=== PATIENT | female | born 1995 | race Caucasian/White ===

== ENCOUNTER 2024-11-02 16:16 | Emergency (ER) | payer SELFPAY ==
[2024-11-02 17:06] VITALS: BP 144/101; PULSE 110; TEMP 36.8; O2SAT 100; BMI 22.0
--- NOTE | 2024-11-02 17:17 | PC.NURSE ---
Patient report lower abdominal pain, patient reports approx. 9 weeks , denies any vaginal bleeding or discharge.
--- NOTE | 2024-11-02 17:23 | US_ITS ---
[address] [address] Patient Name: LAUREN MARTINEZ MRN: [id number] date: 1995 Sex: F Assigned Patient Location: ER Current Patient Location: ER Accession/Order Number: [id number] Exam Date: 11/02/2024 17:53 Report Date: 11/02/2024 18:58 At the request of: SOPHIA JORGE Procedure: US OB transvaginal EXAMINATION: US OB transvaginal HISTORY: rlq pain TECHNIQUE: Grayscale and color Doppler sonographic evaluation of the uterus and adnexa was performed utilizing a transvaginal approach only. COMPARISON: None. FINDINGS: Uterus: Size: Normal Orientation:Anteverted Intrauterine Gestational Sac: Present Yolk Sac: Present Pole: Present. [place]-rump length of 2.3 cm, 9 weeks 0 days with PAPITO 06/07/2025 Cardiac Activity: 173 bpm Subchorionic hemorrhage: none Cervix: Closed Right adnexa:Right ovary measures 4.8 x 2.5 x 4.3 cm. There is a 3.3 cm anechoic simple appearing cyst of the right ovary. Left adnexa:Left ovary is unremarkable and measures 1.3 x 1.7 x 1.7 cm. Free fluid:Small amount of free fluid in the right adnexum and cul-de-sac. US/US OB transvaginal IMPRESSION: 1. Single, living, intrauterine with estimated age of 9 weeks 0 days based on crown-rump length. No acute complication. 2. Simple right ovarian cyst with a small amount of adjacent fluid may suggest ruptured or leaking right ovarian cyst. Electronically authenticated by: ROVERTO ENGLAND Date: 11/02/2024 18:58
[2024-11-02] MEDS: 0.9 % SODIUM CHLORIDE 1,000 ML 1000 ML IV (17:41)
[2024-11-02] MEDS: ONDANSETRON PF 4 MG/2 ML VIAL IV (17:43)
[2024-11-02 17:48] LABS: Basophils Percent Auto 0.4 % (0.2-2.0); Eosinophils Absolute Auto 0.1 10^3/uL (0.0-0.7); Eosinophils Percent Auto 0.6 % (0.9-7.0); Hematocrit 38.5 % (36.0-48.0); Hemoglobin 13.1 g/dL (12.0-16.0); Immature Granulocytes Abs Auto 0.04 10^3/uL (0.00-0.03); Immature Granulocytes Pct Auto 0.4 % (0.0-0.5); Lymphocytes Absolute Auto 2.7 10^3/uL (1.2-3.8); Lymphocytes Percent Auto 26.9 % (20.5-60.0); Mean Corpuscular Volume 85.4 fL (81.0-99.0); Mean Platelet Volume 10.4 fL (9.5-13.5); Monocytes Absolute Auto 0.7 10^3/uL (0.3-0.8); Monocytes Percent Auto 6.6 % (1.7-12.0); Neutrophils Absolute Auto 6.4 10^3/uL (1.4-6.5); Neutrophils Percent Auto 65.1 % (43.0-75.0); Platelet Count 276 10^3/uL (150-450); Red Blood Count 4.51 10^6/uL (4.20-5.40); Red Cell Distribution Width 12.9 % (11.0-15.0); White Blood Count 9.9 10^3/uL (4.0-11.0)
[2024-11-02 18:10] LABS: Alanine Aminotransferase 10 U/L (14-59); Albumin Globulin Ratio 0.9; Albumin Level 3.4 g/dL (3.4-5.0); Alkaline Phosphatase 48 U/L (46-116); Anion Gap 12.9; Aspartate Amino Transferase 11 U/L (15-37); BUN Creatinine Ratio 13.9; Bilirubin Total 0.1 mg/dL (0.2-1.0); Calcium 8.7 mg/dL (8.5-10.1); Chloride 101 mmol/L (98-107); Estimated GFR (African America >60 (>=60 mL/min/1.73m^2); Estimated GFR (Non-African Ame >60 (>=60 mL/min/1.73m^2); Globulin 3.6 g/dL; Glucose 94 mg/dL (74-106); Potassium 3.9 mmol/L (3.5-5.1); Sodium 136 mmol/L (136-145)
[2024-11-02 18:32] LABS: HCG Quantitative 155071 mIU/mL
[2024-11-02] MEDS: MORPHINE SULFATE 2 MG/ML SYRINGE IV (18:46)
[2024-11-02 18:47] VITALS: BP 104/68; PULSE 86; O2SAT 99
[2024-11-02 18:59] LABS: Bilirubin Urine NEGATIVE (NEGATIVE); Blood Urine NEGATIVE (NEGATIVE); Clarity Urine CLEAR (CLEAR); Color Urine YELLOW (YELLOW); Glucose Urine UA NEGATIVE (NEGATIVE); Ketones Urine NEGATIVE (NEGATIVE); Leukocyte Esterase Urine NEGATIVE (NEGATIVE); Nitrite Urine NEGATIVE (NEGATIVE); Protein Urine NEGATIVE (NEG/TRACE); Specific Gravity Urine 1.025 (1.005-1.025); Urobilinogen Urine 0.2 EU/dL (0.2-1.0)
--- NOTE | 2024-11-02 19:22 | ED.GENADUL1 ---
HPI HPI - General Adult General Chief complaint: Abdominal Pain Stated complaint: 9 WEEKS , ABDOMINAL PAIN Time Seen by Provider: 11/02/24 17:12 Source: patient Mode of arrival: walk-in History of Present Illness HPI narrative: 29-year-old female 2 para 0 presents here with chief complaint right lower quadrant abdominal pain. She complains abdominal pain cramping denies any vaginal bleeding or discharge. She states she has a history of 1 miscarriage at approximately 9 weeks along. She states she is approximately 9 weeks at this time. She sees an TEA ROOM MANAGER at [facility] she states she had a complicated first with a miscarriage. Patient denies known history of blood type. Abdominal pain and cramping in the right lower quadrant which began last evening. She is bending over and pain. She denies any vomiting. Related Data Previous Rx's ?Medication ?Instructions ?Recorded ondansetron HCl 4 mg tablet 4 mg PO Q8H PRN nausea and 11/02/24 vomiting 4 days #20 tabs Allergies Allergy/AdvReac Type Severity Reaction Status Date / Time No Known Drug Allergies Allergy Verified 11/02/24 17:06 Opioid HPI Opioid Management Most Recent Opioid Data: No Data to Display Review of Systems ROS Narrative All Systems are negative except as noted/marked.All systems reviewed and otherwise negative PFSH PFSH Social History Little interest or pleasure in doing things: nearly every day Feeling down, depressed, or hopeless: nearly every day Exam Narrative Exam Narrative: Nurses note and vital signs reviewed and patient is not hypoxic. General: The patient appears well and in no apparent distress. Patient is resting comfortably on cart. Skin: Warm, dry, no pallor noted. There is no rash noted. Head: Normocephalic, atraumatic Eye: Normal conjunctiva, no drainage, EOMI. PERRL Ears, Nose, Mouth, and Throat: oral mucosa is moist. Nares patent. Mouth without vesicles. Ear canals patent. Tm's without Erythema Cardiovascular: Regular Rate and Rhythm Respiratory: Patient is in no distress, no accessory muscle use, lungs are clear to auscultation, no wheezing, rales or rhonchi Back: non-tender, no CVA tenderness bilaterally to percussion. GI: right lower quadrant pain, Normal bowel sounds, tenderness to palpation, no masses appreciated. No rebound, guarding, or rigidity noted. Musculoskeletal: The patient has no evidence of calf tenderness, no pitting edema, symmetrical pulses noted bilaterally Neurological: A&O x4, normal speech Psychiatric: Cooperative Constitutional Vital Signs, click to edit/add: Last Vital Signs Temp 98.2 F 11/02/24 17:06 Pulse 86 11/02/24 18:47 Resp 18 11/02/24 18:47 BP 104/68 11/02/24 18:47 Pulse Ox 99 11/02/24 18:47 O2 Del Method Room Air 11/02/24 18:47 Course Vital Signs Vital signs: Vital Signs Temperature 98.2 F 11/02/24 17:06 Pulse Rate 110 H 11/02/24 17:06 Respiratory Rate 18 11/02/24 17:06 Blood Pressure 144/101 H 11/02/24 17:06 Pulse Oximetry 100 11/02/24 17:06 Oxygen Delivery Method Room Air 11/02/24 17:06 Temperature 98.2 F 11/02/24 17:06 Pulse Rate 86 11/02/24 18:47 Respiratory Rate 18 11/02/24 18:47 Blood Pressure 104/68 11/02/24 18:47 Pulse Oximetry 99 11/02/24 18:47 Oxygen Delivery Method Room Air 11/02/24 18:47 Medical Decision Making MDM Narrative Medical decision making narrative: Complaint right lower quadrant abdominal pain. Ultrasound was performed to rule out ectopic . CBC BMP reviewed and unremarkable urinalysis within normal limits.. Ultrasound showed a single live intrauterine at 9 weeks 0 days with a heart rate. Patient does have a ovarian cyst. I attribute her pain to that. Patient was medicated here with 2 mg morphine which helped subside her pain. She will be discharged home with small prescription of [place]. Encouraged to follow-up tomorrow with her primary care TEA ROOM MANAGER. She agrees with plan of care. Differential Diagnosis Differential Diagnosis: Abdominal pain, ectopic , pain in , ovarian cyst Medical Records Medical records reviewed: Yes I reviewed the patient's medical records Lab Data Lab results reviewed: Yes I reviewed the patient's lab results Labs: Lab Results 11/02/24 11/02/24 Range/Units 17:30 17:40 WBC 9.9 (4.0-11.0) 10^3/uL RBC 4.51 (4.20-5.40) 10^6/uL Hgb 13.1 (12.0-16.0) g/dL Hct 38.5 (36.0-48.0) % MCV 85.4 (81.0-99.0) fL MCH 29.0 (26.7-34.0) pg MCHC 34.0 (29.9-35.2) g/dL RDW 12.9 (11.0-15.0) % Plt Count 276 (150-450) 10^3/uL MPV 10.4 (9.5-13.5) fL Neut % (Auto) 65.1 (43.0-75.0) % Lymph % (Auto) 26.9 (20.5-60.0) % Potter % (Auto) 6.6 (1.7-12.0) % Eos % (Auto) 0.6 L (0.9-7.0) % Baso % (Auto) 0.4 (0.2-2.0) % Neut # (Auto) 6.4 (1.4-6.5) 10^3/uL Lymph # (Auto) 2.7 (1.2-3.8) 10^3/uL Potter # (Auto) 0.7 (0.3-0.8) 10^3/uL Eos # (Auto) 0.1 (0.0-0.7) 10^3/uL Baso # (Auto) 0.0 (0.0-0.1) 10^3/uL Abs Immat Gran (auto) 0.04 H (0.00-0.03) 10^3/uL Imm/Tot Granulo (auto) 0.4 (0.0-0.5) % Sodium 136 (136-145) mmol/L Potassium 3.9 (3.5-5.1) mmol/L Chloride 101 (98-107) mmol/L Carbon Dioxide 26.0 (21.0-32.0) mmol/L Anion Gap 12.9 BUN 10.0 (7.0-18.0) mg/dL Creatinine 0.72 (0.55-1.02) mg/dL Est GFR ( Amer) >60 (>=60 mL/min/1.73m^2) Est GFR (Non-Af Amer) >60 (>=60 mL/min/1.73m^2) BUN/Creatinine Ratio 13.9 Glucose 94 (74-106) mg/dL Calcium 8.7 (8.5-10.1) mg/dL Total Bilirubin 0.1 L (0.2-1.0) mg/dL AST 11 L (15-37) U/L ALT 10 L (14-59) U/L Alkaline Phosphatase 48 (46-116) U/L Total Protein 7.0 (6.4-8.2) g/dL Albumin 3.4 (3.4-5.0) g/dL Globulin 3.6 g/dL Albumin/Globulin Ratio 0.9 Lipase 40.0 (16.0-77.0) U/L HCG, Quant 802443 mIU/mL Urine Color Yellow (YELLOW) Urine Clarity Clear (CLEAR) Urine pH 6.0 (5.0-9.0) Ur Specific [place] 1.025 (1.005-1.025) Urine Protein Negative (NEG/TRACE) mg/dL Urine Glucose (UA) Negative (NEGATIVE) mg/dL Urine Ketones Negative (NEGATIVE) mg/dL Urine Occult Blood Negative (NEGATIVE) Urine Nitrite Negative (NEGATIVE) Urine Bilirubin Negative (NEGATIVE) Urine Urobilinogen 0.2 (0.2-1.0) EU/dL Ur Leukocyte Esterase Negative (NEGATIVE) Blood Type A Positive Imaging Data US - abdomen: Radiologist's impression: ITS Impressions Transvaginal US 11/02/24 17:23 IMPRESSION: 1. Single, living, intrauterine with estimated age of 9 weeks 0 days based on crown-rump length. No acute complication. 2. Simple right ovarian cyst with a small amount of adjacent fluid may suggest ruptured or leaking right ovarian cyst. Electronically authenticated by: ROVERTO ENGLAND Date: 11/02/2024 18:58 Discharge Plan Discharge Chief Complaint: Abdominal Pain Clinical Impression: Ovarian cyst Patient Disposition: Home, Self-Care Time of Disposition Decision: 19:16 Condition: Good Prescriptions / Home Meds: New ondansetron HCl 4 mg tablet 4 mg PO Q8H PRN (Reason: nausea and vomiting) 4 Days Qty: 20 0RF Print Language: Bhutanese Instructions: Ovarian Cyst (ED) Additional Instructions: follow up with your obgyn tomorrow and schedule a follow up appointment Referrals: Physician,Non-Staff, MD [Primary Care Provider] - 1 week
[2024-11-02 19:26] LABS: Bacteria Urine SMALL #/HPF (NONE SEEN); Cast Seen? NONE SEEN #/LPF (NONE SEEN); Crystals Seen? None Seen #/HPF (None Seen); Mucus Urine NONE SEEN (NONE SEEN); RBC Urine 0-2 #/HPF (0-2); Squamous Epithelial Cell Urine MODERATE #/LPF (NONE/RARE); Urine Culture Indicated YES; WBC Urine 0-2 #/HPF (NONE SEEN)
== END 2024-11-02 19:39 | disposition home or self-care (01) ==
PROVIDERS: Physician Assistant; Emergency Provider Emergency Medicine
DX: O34.81 Maternal care for other abnormalities of pelvic organs, first trimester (principal); N83.291 Other ovarian cyst, right side; Z3A.09 9 weeks gestation of pregnancy
CPT/HCPCS: 36415; 76817; 80053; 81001; 83690; 84702; 85025; 86900; 86901; 87086; 87150; 87186; 96374; 96375; 99285; J2270; J2405

== ENCOUNTER 2025-04-08 18:25 | Observation (INO) | payer OTHER, SELFPAY ==
[2025-04-08 18:41] VITALS: BP 103/71; PULSE 100
--- NOTE | 2025-04-08 18:56 | US_ITS ---
The [place] [id number] Patient Name: LAUREN MARTINEZ MRN: [id number] date: 1995 Sex: F Assigned Patient Location: [facility] Current Patient Location: Accession/Order Number: [id number] Exam Date: 04/09/2025 08:07 Report Date: 04/09/2025 08:09 At the request of: HANS MORA DO Procedure: US OB BPP w non-stress BIOPHYSICAL PROFILE: CLINICAL INFORMATION: Large for gestational age. Recent fall. COMPARISON: None There is a single live intrauterine gestation in cephalic presentation. The reported gestational age is 31 weeks 3 days. The heart rate measures 141 beats per minute. FINDINGS: TONE: 1 or more episodes of activity extension and flexion of extremity or opening and closing of the hand [Y] 2/2 GROSS BODY MOVEMENTS: 3 or more discrete body or limb movements [Y] 2/2 BREATHING MOVEMENTS: 1 or more episodes of breathing lasting at least 30 seconds [Y] 2/2 KENZIE: A single deepest vertical pocket of amniotic fluid greater than 2 cm [Y] 2/2 KENZIE: 15.2 cm. This is normal. Total score: 05/15 US/US OB BPP w non-stress IMPRESSION: NORMAL BIOPHYSICAL PROFILE. Impression dictated by: Atiya Valdes M.D. 04/09/2025 8:09 AM Dictation Location: [place] [address] Electronically authenticated by: [id number] Y Date: 04/09/2025 08:09
--- NOTE | 2025-04-08 18:56 | US_ITS ---
[place] [id number] Patient Name: LAUREN MARTINEZ MRN: [id number] date: 1995 Sex: F Assigned Patient Location: [facility] Current Patient Location: Accession/Order Number: [id number] Exam Date: 04/08/2025 22:29 Report Date: 04/08/2025 22:32 At the request of: HANS MORA DO Procedure: US OB placenta Limited ultrasound HISTORY: Fell at 11:00 AM. Assessment of the placenta. Fetus in cephalic presentation with longitudinal lie. The amniotic fluid index is 15.2 cm within normal limits. Largest pocket measures up to 6.8 cm. heart rate 141 bpm. Placenta anterior location. No previa. No abruption. Single live active intrauterine gestation. US/US OB placenta IMPRESSION: Normal placenta. Single live intrauterine gestation 31 weeks 3 days. Adequate amniotic fluid. Impression dictated by: Beltran Stephenson M.D. 04/08/2025 10:32 PM Dictation Location: [email or web address] Electronically authenticated by: [id number] Y Date: 04/08/2025 22:32
== END 2025-04-08 20:15 | disposition home or self-care (01) ==
PROVIDERS: Admitting Provider Obstetrics & Gynecology; PCP Obstetrics & Gynecology; Visit Provider Obstetrics & Gynecology
DX: O26.893 Other specified pregnancy related conditions, third trimester (principal); Z3A.31 31 weeks gestation of pregnancy; Z91.81 History of falling
CPT/HCPCS: 76815; 76818; G0378; G0379

== ENCOUNTER 2025-04-22 06:51 | Outpatient (OUT) | payer OTHER, SELFPAY ==
--- OUTSIDE RECORDS SUMMARY | 2013-03-20 04:32 | XMS_ITS | Continuity of Care Document ---
Author Organization [facility] Address [address] [place] [address] [place] [address] Phone Care Team Providers Care Conference And Event Organiser Name Role Phone Unavailable Unavailable Unavailable Allergies, Adverse Reactions, Alerts Substance Reaction Status Criticality No Known allergies Procedures Procedure Date OFFICE/OUTPATIENT VISIT, [facility] Advance Directives Directive Yes / No Effective Date File Name Resuscitation Not Answered N/A N/A Life Support Not Answered N/A N/A Intubation Not Answered N/A N/A Antibiotics Not Answered N/A N/A IV Fluid Support Not Answered N/A N/A Tube Feed Not Answered N/A N/A Other Directive N/A N/A WARNING:The information contained in this section is historical and is provided for information only and does not constitute a legal document or any assurance that the information is still accurate. Please verify the information with the moore of the legal document before using it for clinical purposes. 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 [address] [place] [address] B, [place], [id number], [place]. tel:[phone] Referring Provider: Physician Corporate, [address] [place] [address], [place], [address] . tel:[phone] Family History Family Member Type Diagnosis Age At Onset grandparents Problem (finding) Diabetes mellitus Payers Payer name Insurance type Covered constitution party ID Authoriza tion(s) No Information Social History Type Description Quantity Date Captured Comments Sex Female Smoking Status No Information Chief Complaint And Reason For Visit No Information Reason For Referral Reason For Referral No Information History Of Present Illness Encounter Date Complaint History Of Prese nt Illness No Information Functional Status Date Functional Assessmen t No Information Instructions Date Instruction Additional Infor mation No Information Assessments Type Assessment Date No Information Patient Care Teams Name Effective Dates (start - stop) Status Members No Information
--- OUTSIDE RECORDS SUMMARY | 2023-10-26 06:00 | XMS_ITS ---
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 * HPI: G eneral: Patient presents to the office today to establish care and get a 2nd opinion. * Medical History: Objective: * Vitals: Assessment: Plan: * Treatment: * * Electronic signature of HALLEY QUAN DO on 04/22/2025 at 06:54 AM EDT Sign off status: Pending Visit Status: C ANC (Cancelled) * Provider: Daxa QUAN DO Date: 0 10/26/2023 Generated for Laura lynn/Markell/Joann on: 0 04/22/2025 06:54 AM EDT
--- OUTSIDE RECORDS SUMMARY | 2025-04-16 15:30 | XMS_ITS | Encounter Summary ---
Author Organization [facility] Address [address] [place] [address] Care Team Providers Care Medical Director/Head Team Physician Name Role Phone Dallas Hopkins MD Primary Care Provider [phone] Deonna Melgoza APRN.AUDIT PARTNER Unavailable Source Comments In the event this information is protected by the Federal Confidentiality of Alcohol and Drug AbusePatient Records regulations: The Federal rules restrict any use of the information to criminally investigate or prosecute any alcohol or drug abuse patient.[facility] Reason for Referral * Diagnostic Procedure Only (Routine) - New Request Specialty Diagnoses / Procedures Referred By Dani t Referred To Contact [facility] Diagnoses Poor growth affecting management of mother in second trimester, single or unspecified fetus (HCC) Procedures OBSTETRIC ULTRASOUND WHI US PREG UTERUS AFTER 1ST TRIMEST GESTATION Rizwana Arboleda DO [address] [place] [address] Phone: tel: fax: [address] [address] Referral ID Status Reason Start Date Expiration Date Visits Requested Visits Authorized [id number] New Request Auto-Generat ed Referral 04/16/2025 04/16/2026 21 1 Reason for Visit * Reason Comments US * Diagnostic Procedure Only (Routine) - Closed Specialty Diagnoses / Procedures Referred By Contac t Referred To Contact [facility] Diagnoses 23 weeks gestation of (HCC) Ulcerative colitis without complications, unspecified location (HCC) Procedures OBSTETRIC ULTRASOUND WHI US PREG UTERUS AFTER 1ST TRIMEST GESTATION Milagro Ta APRN.CNM [address] [facility] [address] Phone: tel: fax: [facility] [address] [place] [address] Referral ID Status Reason Start Date Expiration Date V isits Requested Visits Authorized [id number] Closed Auto-Generate d Referral 02/13/2025 02/13/2026 5 1 Encounter Details Date Type Department Care Team (Latest Contact Info) Description 04/16/2025 3:30 PM EDT Routine Office Visit Maternal Medicine [address] [place] [phone] Supervision of high risk in third trimester (HCC) (Primary Dx); Ulcerative colitis without complications, unspecified location (HCC); Obesity affecting , antepartum, third trimester (HCC) Social History Tobacco Use Types Packs/Day Years Used Date Smoking Tobacco: Never Smokeless Tobacco: Never Alcohol Use Standard Drinks/Week Comments Yes 0 (1 standard drink = 0.6 oz pur e alcohol) rare PHQ-2 Answer Date Recorded PHQ-2 score 0 05/23/2024 Area Deprivation Index Answer Date Elia rded National Score (1-100), lowe r number is lower risk 73 01/09/2025 State Score (1-10), lower number is lower risk 6 01/09/2025 Data from: https://www.neighborhoodatlas.medicine.[facility].edu/ . Last address used for calculation [address] 01/09/2025 Estimated Date of Delivery Comme nts Yes 06/07/2025 Based on Ultraso und Sex and Gender Information Value Date Recorded Sex Assigned at Not on file Legal Sex Female 11:10 AM EST Gender Identity Not on file Sexual Orientation Not on file documented as of this encounter Plan of Treatment Upcoming Encounters Date Type Department Care Team (Late st Contact Info) Description 04/22/2025 11:20 AM EDT [facility] Hematology/Oncolog y [address] [place] [address] Clinic, Virtual Anemia [address] [place] [address] RE-SCHEDULED 04/23/2025 5:20 PM EDT Routine Office Visit OB/Gynecology [facility] [address] [place] [address] Zhao Biggs MD [address] [phone] 32 weeks ob/ rescheduled from 04-16-25 05/01/2025 3:50 PM EDT Routine Office Visit Obstetrics/Gynecol ogy [address] [place] [address] [place] [address] [place] [address] 3 week 05/08/2025 11:00 AM EDT Routine Office Visit Maternal Medicine [address] [place] [address] growth pwer CS 05/08/2025 2:45 PM EDT Routine Office Visit OB/Gynecology [address] [place] [address] Milagro Ta APRN.[facility] [address] [facility] [address] 1 week 05/15/2025 2:40 PM EDT Routine Office Visit Obstetrics/Gynecol ogy [address] [place] [address] [place] [address] [place] [address] 1 week OB 05/15/2025 3:30 PM EDT Routine Office Visit Maternal Medicine [address] [place] [address] GROWTH 05/22/2025 1:45 PM EDT Routine Office Visit OB/Gynecology [address] [place] [address] Milagro Ta, FIELD RESEARCH ASSISTANT.CNM [address] [facility] [address] 1 week OB 05/28/2025 3:00 PM EDT Routine Office Visit OB/Gynecology [address] [place] [address] Isabel Kelsey, FIELD RESEARCH ASSISTANT.AUDIT PARTNER [address] [facility] [place] [address] 1 week OB 06/05/2025 1:45 PM EDT Routine Office Visit OB/Gynecology [address] [place] [address] Milagro Ta, FIELD RESEARCH ASSISTANT.CNM [address] [facility] [address] 1 week OB Pending Results Name Type Priority Associated Diagnoses Date /Time BILE ACIDS FRACT BLD Lab Routine 04/07 4:49 PM EDT Scheduled Orders Name Type Priority Associated Diagnoses Orde r Schedule OBSTETRIC ULTRASOUND WHI Anc Imaging Routine Every 3 weeks fo r 21 Occurrences starting 04/16/2025 until 05/26/2025 BILE ACIDS FRACT BLD Lab Routine Expe cted: 04/23/2025 (Approximate), Expires: 10/17/2025 documented as of this encounter Procedures Procedure Name Priority Date/Time Associated Diagnosis Comments OBSTETRIC ULTRASOUND WHI Routine 04/16/2025 4:08 PM EDT Ulcerative colitis without complications, unspecified location (HCC) documented in this encounter Results * (ABNORMAL) COMPLETE BLOOD COUNT AND DIFFERENTIAL (04/16/2025 4:49 PM EDT) WBC 12.70(H) 3.70 - 11.00 k/uL 04/16/2025 5:04 PM EDT [facility] RBC 4.08 3.90 - 5.20 m/uL 04/16/2025 5:04 PM EDT [facility] Hemoglobin 10.1(L) 11.5 - 15.5 g/dL 04/[facility]25 [facility] Hematocrit 32.3(L) 36.0 - 46.0 % 04/16/2025 5:04 PM [facility] MCV 79.2(L) 80.0 - 100.0 fL 04/16/2025 5:04 PM [facility] MCH 24.8(L) 26.0 - 34.0 pg 04/16/2025 5:04 PM [facility] MCHC 31.3 30.5 - 36.0 g/dL 04/16/2025 5:04 PM [facility] RDW-CV 14.1 11.5 - 15.0 % 04/16/2025 5:04 PM [facility] Platelet Count 294 150 - 400 k/uL 04/16/2025 5:04 PM [facility] MPV 10.1 9.0 - 12.7 fL 04/16/2025 5:04 PM [facility] Neutrophils % 67.4 % 04/16/2025 5:04 PM EDT [facility] Abs Neut 8.56(H) 1.45 - 7.50 k/uL 04/16/2025 5:04 PM EDT [facility] Lymphocytes % 23.5 % 04/16/2025 5:04 PM EDT [facility] Abs Lymph 2.98 1.00 - 4.00 k/uL 04/16[facility]2025 5:[facility] PM [facility] Monocytes % 7.1 % 04/16/2025 5:04 PM EDT [facility] Abs Crook 0.90(H) <0.87 k/uL 04/16/2025 5:04 PM EDT [facility] Eosinophils % 0.5 % 04/16/2025 5:04 PM EDT [facility] Abs Eosin 0.06 <0.46 k/uL 04/16/2025 5:04 PM EDT [facility] Basophils % 0.2 % 04/16/2025 5:04 PM EDT [facility] Abs Baso 0.03 <0.11 k/uL 04/16/2025 5:04 PM EDT [facility] Immature Granulocytes % 1.3 % 04/16/2025 5:04 PM EDT [facility] Abs Immature Gran 0.17(H) <0.10 k/uL 04/16/2025 5:04 PM EDT [facility] NRBC 0.0 /100 WBC 04/16/2025 5:04 PM EDT [facility] Absolute nRBC <0.01 <0.01 k/uL 04/16/2025 5:04 PM EDT [facility] Diff Type Auto 04/16/2025 5:04 PM EDT [facility] Blood BLOOD SPECIMEN / Unknown Venipuncture / Unknown 04/16/2025 4:49 PM EDT 04/16/2025 4:49 PM EDT us Rizwana Arboleda DO LABORATORY Final Res ult [facility] [address] [place] [address], * (ABNORMAL) COMPREHENSIVE METABOLIC PANEL (04/16/2025 4:49 PM EDT) Pathologist [facility] Protein, Total 6.8 6.3 - 8.0 g/dL 04/16/2025 5:28 PM EDT [facility] Albumin 3.8(L) 3.9 - 4.9 g/dL 04/16/2025 5:28 PM EDT [facility] Calcium, Total 9.0 8.5 - 10.2 mg/dL 04/16/2025 5:28 PM [facility] Bilirubin, Total 0.2 0.2 - 1.3 mg/dL 04/16/2025 5:28 PM EDT [facility] Alkaline Phosphatase 97 34 - 123 U/L 04/16/2025 5:28 [facility] AST 12(L) 13 - 35 U/L 04/16/2025 5:28 PM EDT [facility] ALT 9 7 - 38 U/L 04/16/2025 5:28 PM EDT [facility] Glucose 85 74 - 99 mg/dL 04/16/2025 5:28 PM EDT [facility] Comment: The [place] Diabetes Association (ADA) provides guidance for cutoff values for fasting glucose and random glucose. The ADA defines fasting as no caloric intake for at least 8 hours. Fasting plasma glucose results between 100 to 125 mg/dL indicate increased risk for diabetes (prediabetes). Fasting plasma glucose results greater than or equal to 126 mg/dL meet the criteria for diagnosis of diabetes. In the absence of unequivocal hyperglycemia, results should be confirmed by repeat testing. In a patient with classic symptoms of hyperglycemia or hyperglycemic crisis, random plasma glucose results greater than or equal to 200 mg/dL meet the criteria for diagnosis of diabetes. Reference: Standards of Medical Care in Diabetes 2016, [place] [employer] Association. Diabetes Care. 2016.39(Suppl 1). BUN 5(L) 7 - 21 mg/dL 04/16/2025 5:28 PM EDT [facility] Creatinine 0.50(L) 0.58 - 0.96 mg/dL 04/16/2025 5:28 PM EDT [facility] Sodium 136 136 - 144 mmol/L 04/16/2025 5:28 PM EDT [facility] Potassium 3.9 3.7 - 5.1 mmol/L 04/16/2025 5:28 [facility] Chloride 102 98 - 107 mmol/L 04/16/2025 5:28 PM EDT [facility] CO2 22 22 - 30 mmol/L 04/16/2025 5:28 PM EDT [facility] Anion Gap 12 8 - 15 mmol/L 04/16/2025 5:28 PM EDT [facility] Estimated Glomerular Filtration Rate 129 >=60 mL/min/1. 73m 04/16/2025 5:28 PM [facility] Comment:Estimated Glomerular Filtration Rate (eGFR) is calculated using the 2020 CKD-EPI creatinine equation. This equation utilizes serum creatinine, sex, and age as parameters. The creatinine assay has traceable calibration to isotope dilution- mass spectrometry. Refer to KDIGO guidelines for clinical interpretation. In patients with unstable renal function, e.g. those with acute kidney injury, the eGFR may not accurately reflect actual GFR. Blood BLOOD SPECIMEN / Unknown Venipuncture / Unknown 04/16/2025 4:49 PM EDT 04/16/2025 4:49 PM EDT Rizwana Arboleda DO LABORATORY Final Res ult [facility] [address] [place] [address], * OBSTETRIC ULTRASOUND WHI (04/16/2025 4:08 PM EDT) Anatomical Region Laterality Modality Other 04/16/2025 4:08 PM EDT Narrative 04/16/2025 4:41 PM EDT Indication Evaluation of growth; history of miscarriage; Ulcerative colitis Impression - Single, live, intrauterine . - presentation is cephalic. - The biometry is consistent with the assigned gestational dating. - The EFW is 2146 g, at the 60%. AC is at the 74%. - The amniotic fluid volume is normal amount with an MVP of 6.5 cm and an KENZIE of 14.1 cm. - The placenta is anterior, fundal. - BPP 05/15. - No malformations visualized on a limited survey as detailed below. Ultrasound Consultation The patient is complaining of total body pruritis since yesterday. Bile acids, CMP, and CBC sent. The patient has a history of ulcerative colitis. Recommendations - growth scan every 3- 4 weeks - Ob appt tomorrow - Daily kick counts - if increased BA consider ursodiol - Additional follow up as clinically indicated. Maternal Assessment Height 173 cm Height (ft) 5 ft Height (in) 8 in Physical Exam Initial weight (lb) 173 lb Initial BMI 26.30 kg/m Method Transabdominal ultrasound examination. View: Adequate visualization Gonzalez . Number of fetuses: 1 Dating LMP on: 08/31/2024 GA by LMP 32 w + 4 d PAPITO by LMP: 06/07/2025 GA by prior assessment 32 w + 4 d PAPITO by prior assessment: 06/07/2025 Ultrasound examination on: 04/16/2025 GA by U/S based upon: AC, BPD, Femur, HC GA by U/S 33 w + 4 d PAPITO by U/S: 05/31/2025 Assigned: based on the LMP, selected on 12/05/2024 Assigned GA 32 w + 4 d Assigned PAPITO: 06/07/2025 General Evaluation Cardiac activity present. FHR 153 bpm. movements: present. Presentation: cephalic Placenta: Placental site: anterior, fundal Umbilical cord: Cord vessels: 3 vessel cord Amniotic fluid: Amount of AF: normal amount. MVP 6.5 cm. KENZIE 14.1 cm. Q1 0.1 cm, Q2 3.6 cm, Q3 6.5 cm, Q4 4.0 cm Biophysical Profile 2: breathing movements 2: Gross body movements 2: tone 2: Amniotic fluid volume 05/15 Biophysical profile score Interpretation: normal Growth Overview Exam date GA BPD (mm) HC (mm) AC (mm) FL (mm) HL (mm) EFW (g) 01/09/2025 18w 5d 41.6 46% 161.4 55% 140.4 70% 28.3 65% 27.4 54% 270 63% 03/19/2025 28w 4d 78.2 98% 296.5 98% 243.3 43% 52.6 42% 1327 55% 04/16/2025 32w 4d 87.5 97% 308.4 68% 294 74% 62.4 54% 2146 60% Biometry Standard BPD 87.5 mm 35w 2d 97% Hadlock OFD 104.8 mm 31w 0d 30% Nicolaides HC 308.4 mm 33w 3d 68% Betty AC 294.0 mm 33w 3d 74% Hadlock Femur 62.4 mm 32w 1d 54% Betty EFW 2,146 g 32w 6d 60% Hadlock EFW (lb) 4 lb EFW (oz) 12 oz EFW by: Hadlock (HC-AC-FL) Extended Contact Lens Manufacturer 5.2 mm Extremities / Bony Struc FL / HC 0.20 Other Structures FHR 153 bpm Anatomy Lateral ventricles: normal Cavum septi pellucidi: normal Cerebellum: normal Cisterna magna: normal Lips: normal Profile: normal Nose: normal 4-chamber view: normal RVOT view: normal LVOT view: normal 3-vessel view: normal Heart / Thorax Situs: situs solitus (normal) Cardiac rhythm: regular (normal) Diaphragm: normal Stomach: normal Kidneys: normal Bladder: normal sex: female Wants to know sex: yes Performed By: Cora Steele RDMS Read By: Rizwana Arboleda MD Milagro [facility] Result documented in this encounter Visit Diagnoses Diagnosis Supervision of high risk in third trimester (HCC)- Primary Unspecified high-risk Ulcerative colitis without complications, unspecified location (HCC) Obesity affecting , antepartum, third trimester (HCC) documented in this encounter Care Teams Medical Director/Head Team Physician Relationship Specialty Start Date End Date Dallas Hopkins MD [address] [place] [address] PCP - General Family Medicine 05/23/24 Deonna Melgoza, FIELD RESEARCH ASSISTANT.AUDIT PARTNER [address] [place] [address] Medical Office Worker Family Medicine 09/15/24 04/19/25 documented as of this encounter
--- OUTSIDE RECORDS SUMMARY | 2025-04-17 13:00 | XMS_ITS | Encounter Summary ---
Author Organization [facility] Address [address] [place], [place] [id number] Care Team Providers Care Sheet Metal Production Worker Name Role Phone Dallas Hopkins MD Primary Care Provider Deonna Melgoza APRN.DATABASE MANAGEMENT SPECIALIST Unavailable Source Comments In the event this information is protected by the Federal Confidentiality of Alcohol and Drug AbusePatient Records regulations: The Federal rules restrict any use of the information to criminally investigate or prosecute any alcohol or drug abuse patient.[facility] Reason for Visit * Reason Comments Care Encounter Details Date Type Department Care Team (Latest Contact Info) Description 04/17/2025 1:00 PM EDT Routine Office Visit Obstetrics/Gynecolo gy 14[address] [facility] [address] [place] [phone] Inge Garland MD [address] [place] [address] care, subsequent in third trimester (HCC) (Primary Dx) Social History Tobacco Use Types Packs/Day Years [...] is lower risk 6 01/09/2025 Data from: https://www.neighborhoodatlas.medicine.[facility].edu/ . Last address used for calculation [address] [...] Contact Info) Description 04/22/2025 11:20 AM EDT [facility] Hematology/Oncolog y [address] [place] [address] Clinic, Virtual Anemia [address] [place] [address] RE-SCHEDULED 04/23/2025 5:20 PM EDT Routine Office Visit OB/Gynecology [facility] [address] [place] [address] Zhao Biggs MD [address] [facility] [address] [place] [address] 32 weeks ob/ rescheduled from 04-16-25 05/01/2025 3:50 PM EDT Routine Office Visit Obstetrics/Gynecol ogy [address] [place] [address] [place] [address] [place] [address] 3 week 05/08/2025 11:00 AM EDT Routine Office Visit Maternal Medicine [address] [place] [address] growth pwer CS 05/08/2025 2:45 PM EDT Routine Office Visit OB/Gynecology [address] [place] [address] Milagro Ta APRN.[facility] [address] [facility] [address] 1 week 05/15/2025 2:40 PM EDT Routine Office Visit Obstetrics/Gynecol ogy [address] [place] [address] [place] [address] [place] [address] 1 week OB 05/15/2025 3:30 PM EDT Routine Office Visit Maternal Medicine [address] [place] [address] GROWTH 05/22/2025 1:45 PM EDT Routine Office Visit OB/Gynecology [address] [place] [address] Milagro Ta APRN.CN [address] [facility] [address] 1 week OB 05/28/2025 3:00 PM EDT Routine Office Visit OB/Gynecology [address] [place] [address] Isabel Kelsey ENVIRONMENTAL DIRECTOR.DATABASE MANAGEMENT SPECIALIST [address] [place] [address] 1 week OB 06/05/2025 1:45 PM EDT Routine Office Visit OB/Gynecology [address] [place] [address] Milagro Ta, ENVIRONMENTAL DIRECTOR.CN [address] [facility] [address] 1 week OB documented as of this encounter Visit Diagnoses Diagnosis care, subsequent in third trimester (HCC)- Primary documented in this encounter Care Teams Sheet Metal Production Worker Relationship Specialty Start Date End Date Dallas Hopkins MD [address] [place] [address] PCP - General Family Medicine 05/23/24 Deonna Melgoza, ENVIRONMENTAL DIRECTOR.[facility] [address] [place] [address] Brush Machine Setter Family Medicine 09/15/24 04/19/25 documented as of this encounter
--- OUTSIDE RECORDS SUMMARY | 2025-04-22 06:54 | XMS_ITS | Encounter Summary ---
Author Organization [facility] Address [address] [facility] [place] [address] Care Team Providers Care Recreational Sports Director Name Role Phone Jorge L Holguin MD Primary Care Provider [phone]- [phone] Encounter Details Date Type Department Care Team (Late st Contact Info) Description 08/18/2023 External Result Encounter [facility] External Department Unsolicited Renae Brown MD [address] [place] [address] Social History Tobacco Use Types Packs/Day Years Used Date Smoking Tobacco: Never Smokeless Tobacco: Never Alcohol Use Standard Drinks/Week Comments Never 0 (1 standard drink = 0.6 oz pur e alcohol) Comments No Sex and Gender Information Value Date Recorded Sex Assigned at Not on file Legal Sex Female 9:20 AM EDT Gender Identity Not on file Sexual Orientation Not on file COVID-19 Exposure Response Date Recorded In the last 10 days, have yo u been in contact with someone who was confirmed or suspected to have Coronavirus/COVID-19? No / Unsure 08/06/2023 8:37 AM EDT documented as of this encounter Plan of Treatment Not on file documented as of this encounter Procedures Procedure Name Priority Date/Time Associated Diagnosis Comments US PELVIS TRANSVAGINAL 08/18/2023 10:22 AM EST documented in this encounter Results * US pelvis transvaginal (08/18/2023 10:22 AM EST) Anatomical Region Laterality Modality Pelvis Ultrasound 08/18/2023 10:2 2 AM EST Impressions 08/21/2023 8:17 AM EST CONTINUED THICKENED HETEROGENEOUS ENDOMETRIUM. Impression dictated by: Atiya Valdes M.D.08/18/2023 10:27 AM Dictation Location: [place] [address] Tech: Sejal Oliver Transcribed By: ANSHU 08/18/23 1027 Dictated By: Atiya Valdes MD 08/18/23 1022 Signed By: <Electronically signed by MD Atiya Valdes in OV> 08/18/23 1027 Narrative 08/21/2023 8:17 AM EST [facility] Main [place] [id number] Ultrasound Report Signed Patient: Caleb Sifuentes MR#: [id number] : 1995 Acct:[id number] Age/Sex: 28 / F ADM Date: 08/17/23 Loc: 3S Room: [address] [place] [place] [address] Type: REG CLI Attending Dr: Renae Brown MD Ordering Provider: JÚNIOR Peralta Date of Service: 08/18/23 US/US transvaginal: Repeat endometrial depth Copies to: JÚNIOR Peralta Limited TRANSVAGINAL ULTRASOUND COMPARISON: 08/17/2023 Transvaginal imaging shows a thickened heterogeneous endometrium with a trace amount of fluid within the canal. The endometrial lining measures approximately 2.3 cm in thickness which is slightly more prominent than the comparison. The ovaries were not evaluated. There is no free fluid. US/US transvaginal Procedure Note Radiology, Radiologist, - 08/21/2023 [facility] Main [place] [id number] Ultrasound Report Signed Patient: Caleb Sifuentes BMR#: [id number] : 1995Acct:[id number] Age/Sex: 28 / FADM Date: 08/17/23 Loc: 3S Room: [id number]: REG CLI Attending Dr: Renae Brown MD Ordering Provider: JÚNIOR Peralta Date of Service: 08/18/23 US/US transvaginal: Repeat endometrial depth Copies to: Penola Brown, MD-[facility] TRANSVAGINAL ULTRASOUND COMPARISON: 08/17/2023 Transvaginal imaging shows a thickened heterogeneous endometrium with atrace amount of fluid within the canal. The endometrial lining measures approximately 2.3 cm inthickness which is slightly more prominent than the comparison. The ovaries were not evaluated. There isno free fluid. US/US transvaginal IMPRESSION: CONTINUED THICKENED HETEROGENEOUS ENDOMETRIUM. Impression dictated by: Atiya Valdes M.D.08/18/2023 10:27 AM Dictation Location: [place] [address] Tech: Sejal Oliver Transcribed By: [facility] 08/18/23 1027 Dictated By: Atiya Valdes MD 08/18/23 1022 Signed By: <Electronically signed by MD Atiya Valdes in OV> 08/18/23 1027 us Renae Brown MD IMG US PROCEDURES Final Result documented in this encounter Visit Diagnoses Not on filedocumented in this encounter Care Teams Recreational Sports Director Relationship Specialty Start Date End Date Jorge L Holguin MD [address] [place] [address] PCP - General Family Medicine 07/16/23 documented as of this encounter
--- OUTSIDE RECORDS SUMMARY | 2025-04-22 06:54 | XMS_ITS | Encounter Summary ---
Author Organization [facility] Address [address] [place] [address] Care Team Providers Care Reproduction Technician Name Role Phone Jorge L Holguin MD Primary Care Provider +1- [phone] Encounter Details Date Type Department Care Team (Late st Contact Info) Description 08/28/2023 Abstract [facility] OB [address] [facility] [address] [place] [address] Renae Brown MD [address] [facility] [address] [place] [address] Social History Tobacco Use Types Packs/Day Years [...] on file documented as of this encounter Visit Diagnoses Not on filedocumented in this encounter Care Teams Reproduction Technician Relationship Specialty Start Date End Date Jorge L Holguin MD [address] [place] [address] PCP - General Family Medicine 07/16/23 documented as of this encounter
--- OUTSIDE RECORDS SUMMARY | 2025-04-22 06:54 | XMS_ITS | Encounter Summary ---
Author Organization [facility] Address [address] [place] [address] Care Team Providers Care Mobile Equipment Mechanic Name Role Phone Jogre L Holguin MD Primary Care Provider [phone]- [phone] Encounter Details Date Type Department Care Team (Late st Contact Info) Description 08/20/2023 Abstract [facility] [address] [facility] [address] [place] [address] Renae Brown MD [address] [facility] [address] [place] [address] Social History Tobacco Use Types Packs/Day Years [...] on filedocumented in this encounter Care Teams Mobile Equipment Mechanic Relationship Specialty Start Date End Date Jorge L Holguin MD [address] [place] [address] PCP - General Family Medicine 07/16/23 documented as of this encounter
--- OUTSIDE RECORDS SUMMARY | 2025-04-22 06:54 | XMS_ITS | Encounter Summary ---
Author Organization [facility] Address [address] [place] [address] Care Team Providers Care Insurance Policy Clerk Name Role Phone Jorge L Holguin MD Primary Care Provider +1- [phone] Encounter Details Date Type Department Care Team (Late st Contact Info) Description 08/14/2023 Abstract [facility] [address] [facility] [address] [place] [address] Renae Brown MD [address] [facility] [address] [place] [address] Social History Tobacco Use Types Packs/Day Years [...] on filedocumented in this encounter Care Teams Insurance Policy Clerk Relationship Specialty Start Date End Date Jorge L Holguin MD [address] [place] [address] PCP - General Family Medicine 07/16/23 documented as of this encounter
--- OUTSIDE RECORDS SUMMARY | 2025-04-22 06:54 | XMS_ITS | Clinical Summary ---
Author Organization [facility] Address [address] [place] [address] Care Team Providers Care Forensics Analyst Name Role Phone Jorge L Holguin MD Primary Care Provider +1- [phone] Allergies No known active allergies Medications amphetamine-dext roamphetamine XR (Adderall XR) 25 MG 24 hr capsule Take 25 mg by mouth in the morning. Do not crush or chew.. Active Active Problems Problem Noted Date Diagnosed Date Attention deficit hyperactiv ity disorder (ADHD), combined type 11/22/2018 Encounters Date Type Department Care Team Description 04/09/2025 Clinisync Result Encounter [facility]S External Department Unsolicited Mehdi Velasquez DO 04/08/2025 Clinisync Result Encounter NOMS External Department Unsolicited Mehdi Velasquez DO from Last 3 Months Family History Medical History Relation Name Comments Diabetes Mother Carolyn Relation Name Status Comments Mother Carolyn Social History Tobacco Use Types Packs/Day Years Used Date Smoking Tobacco: Never Smokeless Tobacco: Never Tobacco Cessation:Counseling Given: Yes Alcohol Use Standard Drinks/Week Comments Never 0 (1 standard drink = 0.6 oz pur e alcohol) Comments No Sex and Gender Information Value Date Recorded Sex Assigned at Not on file Legal Sex Female 9:20 AM EDT Gender Identity Not on file Sexual Orientation Not on file Last Filed Vital Signs Vital Sign Reading Time Taken Comments Blood Pressure 100/60 03/10/2024 3:12 PM EDT Pulse 85 03/10/2024 3:12 PM EDT Temperature 36.8 C (98.2 F) 03/10/2024 3:12 PM EDT Respiratory Rate - - Oxygen Saturation 97% 03/10/2024 3:12 PM EDT Inhaled Oxygen Concentration - - Weight 67.1 kg (148 lb) 03/10/2024 3:12 PM EDT Height - - Body Mass Index - - Plan of Treatment Not on file Procedures Procedure Name Priority Date/Time Associated Diagnosis Comments US OB BPP W NON-STRESS 04/09/2025 8:09 AM EDT US OB PLACENTA 04/08/2025 10:32 PM EDT from Last 3 Months Results * US OB BPP W NON-STRESS (04/09/2025 8:09 AM EDT) Anatomical Region Laterality Modality Other 04/09/2025 8:09 AM EDT Narrative 04/09/2025 8:12 [place] [address] Ultrasound Report Signed Patient: LAUREN SIFUENTES MR#: [id number] : 1995 Acct:[id number] Age/Sex: 29 / F ADM Date: Loc: [facility] 250-[address]: Mehdi Velasquez D.O. Ordering Physician: Mehdi Velasquez D.O. Date of Service: 04/08/25 Procedure(s): US OB BPP w non-stress Accession Number(s): [id number] cc: Mehdi Velasquez D.O.; Physician,Non-Staff M.D. The [address] [address] Patient Name: LAUREN SIFUENTES MRN: [id number] date: 1995 Sex: F Assigned Patient Location: [facility] Current Patient Location: Accession/Order Number: [id number] Exam Date: 04/09/2025 08:07 Report Date: 04/09/2025 08:09 At the request of: MEHDI VELASQUEZ DO Procedure: US OB BPP w non-stress BIOPHYSICAL PROFILE: CLINICAL INFORMATION: Large for gestational age. Recent fall. COMPARISON: None There is a single live intrauterine gestation in cephalic presentation. The reported gestational age is 31 weeks 3 days. The heart rate measures 141 beats per minute. FINDINGS: TONE: 1 or more episodes of activity extension and flexion of extremity or opening and closing of the hand [Y] 2/2 GROSS BODY MOVEMENTS: 3 or more discrete body or limb movements [Y] 2/2 BREATHING MOVEMENTS: 1 or more episodes of breathing lasting at least 30 seconds [Y] 2/2 KENZIE: A single deepest vertical pocket of amniotic fluid greater than 2 cm [Y] 2/2 KENZIE: 15.2 cm. This is normal. Total score: 8 US/US OB BPP w non-stress IMPRESSION: NORMAL BIOPHYSICAL PROFILE. Impression dictated by: Atiya Valdes M.D. 04/09/2025 8:09 AM Dictation Location: [place] [address] Electronically authenticated by: [id number] Y Date: 04/09/2025 08:09 Dictated By: Atiya Valdes M.D. Signed By: 04/09/25811 DD/ 8 TD/TT: Continuous Churn Buttermaker: Procedure Note Radiology, Radiologist, MD - 04/09/2025 [place] [address] Ultrasound Report Signed Patient: LAUREN SIFUENTES BMR#: [id number] : 1995Acct:[id number] Age/Sex: 29 M Date: Loc: [facility] 250-[address]: Mehdi Velasquez D.O. Ordering Physician: Mehdi Velasquez D.O. Date of Service: 04/08/25 Procedure(s): US OB BPP w non-stress Accession Number(s): [id number] cc: Mehdi Velasquez D.O.; Physician,Non-Staff Brandi The [place] [id number] Patient Name: LAUREN SIFUENTES MRN: [id number] date: 1995 Sex: F Assigned Patient Location: [facility] Current Patient Location: Accession/Order Number: [id number] Exam Date: 04/09/2025 08:07 Report Date: 04/09/2025 08:09 At the request of: MEHDI VELASQUEZ DO Procedure: US OB BPP w non-stress BIOPHYSICAL PROFILE: CLINICAL INFORMATION: Large for gestational age. Recent fall. COMPARISON: None There is a single live intrauterine gestation in cephalic presentation.The reported gestational age is 31 weeks 3 days. The heart ratemeasures 141 beats per minute. FINDINGS: TONE: 1 or more episodes of activity extension and flexion of extremity or opening and closing of the hand [Y] 2/2 GROSS BODY MOVEMENTS: 3 or more discrete body or limb movements [Y] 2/2 BREATHING MOVEMENTS: 1 or more episodes of breathing lastingat least 30 seconds [Y] 2/2 KENZIE: A single deepest vertical pocket of amniotic fluid greater than 2 cm [Y] 2/2 KENZIE: 15.2 cm. This is normal. Total score: 8/8 US/US OB BPP w non-stress IMPRESSION: NORMAL BIOPHYSICAL PROFILE. Impression dictated by: Atiya Valdes M.D. 04/09/2025 8:09 AM Dictation Location: [place] [address] Electronically authenticated by: [id number] Y Date: 508:09 Dictated By: Atiya Valdes M.D. Signed By:04/09/25811 DD/ 8 TD/TT: Continuous Churn Buttermaker: us Mehdi Velasquez DO [facility] Final Result * US OB PLACENTA (04/08/2025 10:32 PM EDT) Anatomical Region Laterality Modality Other 04/08/2025 10:3 2 PM EDT Narrative 04/08/2025 10:35 [place] [address] Ultrasound Report Signed Patient: LAUREN SIFUENTES MR#: [id number] : 1995 Acct:[id number] Age/Sex: 29 / F ADM Date: Loc: [facility] 250- Attending Dr: Mehdi Velasquez D.O. Ordering Physician: Mehdi Velasquez D.O. Date of Service: 04/08/25 Procedure(s): US OB placenta Accession Number(s): [id number] cc: Mehdi Velasquez D.O.; Physician,Non-Staff Brandi The [address] [address] Patient Name: LAUREN SIFUENTES MRN: [id number] date: 1995 Sex: F Assigned Patient Location: [facility] Current Patient Location: Accession/Order Number: [id number] Exam Date: 04/08/2025 22:29 Report Date: 04/08/2025 22:32 At the request of: MEHDI VELASQUEZ DO Procedure: US OB placenta Limited ultrasound HISTORY: Fell at 11:00 AM. Assessment of the placenta. Fetus in cephalic presentation with longitudinal lie. The amniotic fluid index is 15.2 cm within normal limits. Largest pocket measures up to 6.8 cm. heart rate 141 bpm. Placenta anterior location. No previa. No abruption. Single live active intrauterine gestation. US/US OB placenta IMPRESSION: Normal placenta. Single live intrauterine gestation 31 weeks 3 days. Adequate amniotic fluid. Impression dictated by: Beltran Stephenson M.D. 04/08/2025 10:32 PM Dictation Location: [place] [address] Electronically authenticated by: [id number] Y Date: 04/08/2025 22:32 Dictated By: Beltran Stephenson D.O. Signed By: 04/08/252234 DD/ 31 TD/TT: Continuous Churn Buttermaker: Procedure Note Radiology, Radiologist, MD - 04/09/[address] [address] Ultrasound Report Signed Patient: LAUREN SIFUENTES BMR#: [id number] : 1995Acct:[id number] Age/Sex: 29 / FADM Date: Loc: [facility] 250-[address]: Mehdi Velasquez D.O. Ordering Physician: Mehdi Velasquez D.O. Date of Service: 04/08/25 Procedure(s): US OB placenta Accession Number(s): [id number] cc: Mehdi Velasquez D.O.; Physician,Non-Staff Brandi [place] [address] Patient Name: LAUREN SIFUENTES MRN: [id number] date: 1995 Sex: F Assigned Patient Location: [facility] Current Patient Location: Accession/Order Number: [id number] Exam Date: 04/08/2025 22:29 Report Date: 04/08/2025 22:32 At the request of: MEHDI VELASQUEZ DO Procedure: US OB placenta Limited ultrasound HISTORY: Fell at 11:00 AM. Assessment of the placenta. Fetus in cephalic presentation with longitudinal lie. The amniotic fluid index is 15.2 cm within normal limits. Largest pocket measures up to 6.8cm. heart rate 141 bpm. Placenta anterior location. No previa. No abruption. Single live active intrauterine gestation. US/US OB placenta IMPRESSION: Normal placenta. Single live intrauterine gestation 31 weeks3 days. Adequate amniotic fluid. Impression dictated by: Beltran Stephenson M.D. 04/08/2025 10:32 PM Dictation [facility] [place] Electronically authenticated by: [id number] Y Date: 2:32 Dictated By: Beltran Stephenson D.O. Signed By:04/08/252234 DD/ 31 TD/TT: Continuous Churn Buttermaker: Mehdi Velasquez DO [facility] Final Result from Last 3 Months Insurance [employer] Care Teams Forensics Analyst Relationship Specialty Start Date End Date Jorge L Holguin MD [address] [place] [address] PCP - General Family Medicine 07/16/23
--- OUTSIDE RECORDS SUMMARY | 2025-04-22 06:54 | XMS_ITS | Encounter Summary ---
Author Organization [facility] Address [address] [facility] [place] [address] Care Team Providers Care .Net Architect Name Role Phone Jorge L Holguin MD Primary Care Provider +1- [phone] Encounter Details Date Type Department Care Team (Late st Contact Info) Description 08/17/2023 External Result Encounter [facility] External Department Unsolicited Renae Swenson MD [address] [place] [address] Social History Tobacco Use Types Packs/Day Years [...] Date/Time Associated Diagnosis Comments US PELVIS TRANSVAGINAL 08/17/2023 5:43 PM EST documented in this encounter Results * US pelvis transvaginal (08/17/2023 5:43 PM EST) Anatomical Region Laterality Modality Pelvis Ultrasound 08/17/2023 5:43 PM EST Impressions 08/21/2023 8:17 AM EST THICKENED HETEROGENEOUS ENDOMETRIUM, DESCRIBED Impression dictated by: Atiya Valdes M.D.08/17/2023 5:47 PM Dictation Location: [place] [address] Tech: Lana Landin Transcribed By: ANSHU 08/17/231746 Dictated By: Atiya Valdes MD 08/17/231742 Signed By: <Electronically signed by MD Atiya Valdes in OV> 08/17/231746 Narrative 08/21/2023 8:17 AM EST [facility] Main [place] [id number] Ultrasound Report Signed Patient: Caleb Sifuentes MR#: [id number] : 1995 Acct:[id number] Age/Sex: 28 / F ADM Date: 08/17/23 Loc: 3S Room: [address] [place] [address] Type: REG CLI Attending Dr: Renae Swenson MD Ordering Provider: Renae Swenson MD-[facility] Date of Service: 08/17/23 US/US transvaginal: Post D C, RPOC. measure endo PER DR SWENSON Copies to: Renae Swenson MD-[facility] LIMITED TRANSVAGINAL ULTRASOUND COMPARISON: 07/20/2023 Transvaginal imaging was performed. Estimated uterine size is approximately 9.4 x 4.2 x 5.1 cm. There is a thickened heterogeneously hyperechoic endometrium measuring 17 - 18 mm. There might also be a trace amount of fluid within the endometrial canal though no evidence of a residual gestational sac. No focal myometrial abnormalities were imaged. No free fluid is identified. The ovaries were not imaged. US/US transvaginal Procedure Note Radiology, Radiologist, - 08/21/2023 [facility] Main [place] [address] Ultrasound Report Signed Patient: Caleb Sifuentes BMR#: [id number] : 1995Acct:[id number] Age/Sex: 28 / FADM Date: 08/17/23 Loc: 3S Room: [id number]: REG CLI Attending Dr: Renae Swenson MD Ordering Provider: Renae Swenson MD-[facility] Date of Service: 08/17/23 US/US transvaginal: Post D C, RPOC. measureendo PER DR SWENSON Copies to: Renae Swenson MD-[facility] LIMITED TRANSVAGINAL ULTRASOUND COMPARISON: 07/20/2023 Transvaginal imaging was performed. Estimated uterine size isapproximately 9.4 x 4.2 x 5.1 cm. There is a thickened heterogeneously hyperechoic endometrium measuring 17- 18 mm. There might also be a trace amount of fluid within the endometrial canal though no evidenceof a residual gestational sac. No focal myometrial abnormalities were imaged. No free fluid isidentified. The ovaries were not imaged. US/US transvaginal IMPRESSION: THICKENED HETEROGENEOUS ENDOMETRIUM, DESCRIBED Impression dictated by: Atiya Valdes M.D.08/17/2023 5:47 PM Dictation Location: [place] [address] Tech: Lana Annley Transcribed By: [facility] 08/17/231746 Dictated By: Atiya Valdes MD 08/17/231742 Signed By: <Electronically signed by MD Atiya Valdes in OV> 08/17/231746 us Renae Swenson MD IMG US PROCEDURES Final Result documented in this encounter Visit Diagnoses Not on filedocumented in this encounter Care Teams .Net Architect Relationship Specialty Start Date End Date Jorge L Holguin MD [address] [place] [address] PCP - General Family Medicine 07/16/23 documented as of this encounter
--- OUTSIDE RECORDS SUMMARY | 2025-04-22 06:54 | XMS_ITS | Encounter Summary ---
Author Organization [facility] Address [address] [place] [address] Care Team Providers Care Cyber Reverse Engineer Name Role Phone Jorge L Holguin MD Primary Care Provider +1- [phone] Encounter Details Date Type Department Care Team (Late st Contact Info) Description 04/09/2025 Clinisync Result Encounter NOMS External Department Unsolicited Mehdi Velasquez, DO [address] [facility] [address] [place] [id number] Social History Tobacco Use Types Packs/Day Years [...] BPP W NON-STRESS 04/09/2025 8:09 AM EDT documented in this encounter Results * US OB BPP W NON-STRESS (04/09/2025 8:09 AM EDT) Anatomical Region Laterality Modality Other 04/09/2025 8:09 AM EDT Narrative 04/09/2025 8:12 AM EDT The [address] [address] Ultrasound Report Signed Patient: LAUREN SIFUENTES MR#: [id number] : 1995 Acct:[id number] Age/Sex: 29 / F ADM Date: Loc: [facility] 250-[address]: Mehdi Velasquez D.O. Ordering Physician: Mehdi Velasquez D.O. Date of Service: 04/08/25 Procedure(s): US OB BPP w non-stress Accession Number(s): [id number] cc: Mehdi Velasquez D.O.; Physician,Non-Staff M.[place] [id number] Patient Name: LAUREN SIFUENTES MRN: [facility]:[id number] date: 1995 Sex: F Assigned Patient Location: [facility] Current Patient Location: Accession/Order Number: [id number] Exam Date: 04/09/2025 08:07 Report Date: 04/09/2025 [...] Valdes M.D. 04/09/2025 8:09 AM Dictation Location: [place] [address] Electronically authenticated by: [id number] Y Date: 04/09/2025 08:09 Dictated By: Atiya Valdes M.D. Signed By: 04/09/25811 DD/ 0809 TD/TT: Aluminum Siding Mechanic: Procedure Note Radiology, Radiologist, - 04/09/2025 [place] [address] Ultrasound Report Signed Patient: LAUREN SIFUENTES BMR#: [id number] : 1995Acct:[id number] Age/Sex: 29 FADM Date: Loc: [facility] 250-[address]: Mehdi Velasquez D.O. Ordering Physician: Mehdi Velasquez D.O. Date of Service: 04/08/25 Procedure(s): US OB BPP w non-stress Accession Number(s): [id number] cc: Mehdi Velasquez D.O.; Physician,Non-Staff Brandi The [place] [id number] Patient Name: LAUREN SIFUENTES MRN: [facility]:[id number] date: 1995 Sex: F Assigned Patient Location: [facility] Current Patient Location: Accession/Order Number: [id number] Exam Date: 04/09/2025 08:07 Report Date: 04/09/2025 [...] Valdes M.D. 04/09/2025 8:09 AM Dictation Location: [place] [address] Electronically authenticated by: [id number] Y Date: 508:09 Dictated By: Atiya Valdes M.D. Signed By:04/09/25811 DD/ 8 TD/TT: Aluminum Siding Mechanic: us Mehdi Eva DO [facility] Final Result documented in this encounter Visit Diagnoses Not on filedocumented in this encounter Care Teams Cyber Reverse Engineer Relationship Specialty Start Date End Date Jorge L Holguin MD [address] [place] [address] PCP - General Family Medicine 07/16/23 documented as of this encounter
--- OUTSIDE RECORDS SUMMARY | 2025-04-22 06:54 | XMS_ITS | Patient Health Record ---
Author Organization [facility] [place] Address [address] [place] [address] Care Team Providers Care Family Service Aide Name Role Phone None, Unknown or Primary Care Provider Unavailab le Reason For Referral No Information Medications Medication SIG (Take, Route, Frequency, Duration) Notes Start Date End Date Status Pepcid Active Plan Of Treatment No Information Insurance Providers Payer Name Payer Address Payer Phone Subscriber Number Group Number Insured Name Patient Relationship to Insured Coverage Start Date Coverage End Date SELF PAY ON PATIENT DEMOGRAPHICS Caleb Sifuentes Self - patient is the insured 2 Medical (General) History Surgical History Surgery Date(Month/Year) History of appendectomy 11/2012
--- OUTSIDE RECORDS SUMMARY | 2025-04-22 06:54 | XMS_ITS | Encounter Summary ---
Author Organization [facility] Address [address] [place] [address] Care Team Providers Care Corporate Controller Name Role Phone Jorge L Holguin MD Primary Care Provider +1- [phone] Encounter Details Date Type Department Care Team (Late st Contact Info) Description 08/20/2023 Orders Only [facility] [address] [place] [phone] Renae Brown MD [address] [place] [address] Blighted ovum ([facility]) (Primary Dx) Social History Tobacco Use Types [...] Procedure Name Priority Date/Time Associated Diagnosis Comments CHG US RETROPERITONEAL REAL TIME W/IMAGE LIMITED Routine 08/20/2023 10:06 AM EST SCANNED LABS Routine 08/20/2023 9:36 AM EST documented in this encounter Results * Renal Ultrasound (08/20/2023 10:06 AM EST) us Renae Brown MD IN CLINIC/BEDSIDE ORDERABLES F inal Result * SCANNED LABS (08/20/2023 9:36 AM EST) us Renae Brown MD LAB CHG PERFORMABLES Final Res ult documented in this encounter Visit Diagnoses Diagnosis Blighted ovum ([facility])- Primary Other abnormal product of conception documented in this encounter Care Teams Corporate Controller Relationship Specialty Start Date End Date Jorge L Holguin MD [address] [place], [place] [phone] PCP - General Family Medicine 07/16/23 documented as of this encounter
--- OUTSIDE RECORDS SUMMARY | 2025-04-22 06:54 | XMS_ITS | Encounter Summary ---
Author Organization [facility] Address [address] [place] [address] Care Team Providers Care Plate Fitter Name Role Phone Jorge L Holguin MD Primary Care Provider +1- [phone] Encounter Details Date Type Department Care Team (Late st Contact Info) Description 08/17/2023 Abstract [facility] [address] [facility] [address] [place] [address] Renae Brown MD [address] [facility] [address] [place] [address] Social History Tobacco Use Types Packs/Day Years [...] on filedocumented in this encounter Care Teams Plate Fitter Relationship Specialty Start Date End Date Jorge L Holguin MD [address] [place] [address] PCP - General Family Medicine 07/16/23 documented as of this encounter
--- OUTSIDE RECORDS SUMMARY | 2025-04-22 06:54 | XMS_ITS | Encounter Summary ---
Author Organization [facility] Address [address] [place] [address] Care Team Providers Care Golf Coach Name Role Phone Jorge L Holguin MD Primary Care Provider +1- [phone] Encounter Details Date Type Department Care Team (Late st Contact Info) Description 04/08/2025 Clinisync Result Encounter NOMS External Department Unsolicited Mehdi Velasquez, DO [address] [facility] [address] [place], [place] [phone] Social History Tobacco Use Types Packs/Day Years [...] Priority Date/Time Associated Diagnosis Comments US OB PLACENTA 04/08/2025 10:32 PM EDT documented in this encounter Results * US OB PLACENTA (04/08/2025 10:32 PM EDT) Anatomical Region Laterality Modality Other 04/08/2025 10:3 2 PM EDT Narrative 04/08/2025 10:35 PM EDT The [address] [address] Ultrasound Report Signed Patient: LAURNE SIFUENTES MR#: [id number] : 1995 Acct:[id number] Age/Sex: 29 / F ADM Date: Loc: [facility] [address]: Mehdi Velasquez D.O. Ordering Physician: Mehdi Velasquez D.O. Date of Service: 04/08/25 Procedure(s): US OB placenta Accession Number(s): [id number] cc: Mehdi Velasquez D.O.; Physician,Non-Staff Brandi The [place] [id number] Patient Name: LAUREN SIFUENTES MRN: [id number] date: 1995 Sex: F Assigned Patient Location: [facility] Current Patient Location: Accession/Order Number: [id number] Exam Date: 04/08/2025 22:29 Report Date: 04/08/2025 [...] Stephenson M.D. 04/08/2025 10:32 PM Dictation Location: [place] [address] Electronically authenticated by: [id number] Y Date: 04/08/2025 22:32 Dictated By: Beltran Stephenson D.O. Signed By: 04/08/252234 DD/ 31 TD/TT: Spring Layer: Procedure Note Radiology, Radiologist, - 04/09/2025 [place] [address] Ultrasound Report Signed Patient: LAUREN SIFUENTES BMR#: [id number] : 1995Acct:[id number] Age/Sex: 29 / FADM Date: Loc: [facility] Attending Dr: Mehdi Velasquez D.O. Ordering Physician: Mehdi Velasquez D.O. Date of Service: 04/08/25 Procedure(s): US OB placenta Accession Number(s): [id number] cc: Mehdi Velasquez D.O.; Physician,Non-Staff Brandi [place] [address] Patient Name: LAUREN SIFUENTES MRN: [facility]:[id number] date: 1995 Sex: F Assigned Patient Location: [facility] Current Patient Location: Accession/Order Number: [id number] Exam Date: 04/08/2025 22:29 Report Date: 04/08/2025 [...] Stephenson M.D. 04/08/2025 10:32 PM Dictation Location: [place] [address] Electronically authenticated by: [id number] Y Date: 2:32 Dictated By: Beltran Stephenson D.O. Signed By:04/08/252234 DD/ 31 TD/TT: Spring Layer: Mehdi Velasquez DO [facility] Final Result documented in this encounter Visit Diagnoses Not on filedocumented in this encounter Care Teams Golf Coach Relationship Specialty Start Date End Date Jorge L Holguin MD [address] [place] [address] PCP - General Family Medicine 07/16/23 documented as of this encounter
--- OUTSIDE RECORDS SUMMARY | 2025-04-22 06:55 | XMS_ITS | Encounter Summary ---
Author Organization [facility] Address [address] [place] [address] Care Team Providers Care Miller Head Name Role Phone Dallas Hopkins MD Primary Care Provider [phone] Deonna Melgoza APRN.[employer] Unavailable [phone] Lela Post PA-C Unavailable [phone] Source Comments In the event this information is protected by the Federal Confidentiality of Alcohol and Drug AbusePatient Records regulations: The Federal rules restrict any use of the information to criminally investigate or prosecute any alcohol or drug abuse patient.[facility] Encounter Details Date Type Department Care Team (Late st Contact Info) Description 06/23/2024 Patient Msg [facility] [address] [place] [address] [address] [place], [place] [id number] Provider, [facility] 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 Last address used for calculation [address] 02/05/2024 Comments Unknown Sex and Gender Information Value Date Recorded Sex Assigned at Not on file Legal Sex Female 11:10 AM EST Gender Identity Not on file Sexual Orientation Not on file documented as of this encounter Plan of Treatment Upcoming Encounters Date Type Department Care Team (Late st Contact Info) Description 04/22/2025 11:20 AM EDT [facility] Hematology/Oncolog y [address] [place] [address] Clinic, Virtual Anemia [address] [place] [address] RE-SCHEDULED 04/23/2025 5:20 PM EDT Routine Office Visit OB/Gynecology [facility] [address] [place] [address] Zhao Biggs MD [address] [facility] [address] [place] [phone] 32 weeks ob/ rescheduled from 04-16-25 05/01/2025 3:50 PM EDT Routine Office Visit Obstetrics/Gynecol ogy [address] [place] [address] [place] [address] [place] [address] 3 week 05/08/2025 11:00 AM EDT Routine Office Visit Maternal Medicine [address] [place] [address] growth pwer CS 05/08/2025 2:45 PM EDT Routine Office Visit OB/Gynecology [address] [place] [address] Milagro Ta APRN.[facility] [address] [facility] [address] 1 week 05/15/2025 2:40 PM EDT Routine Office Visit Obstetrics/Gynecol ogy [address] [place] [address] [place] [address] [place] [address] 1 week OB 05/15/2025 3:30 PM EDT Routine Office Visit Maternal Medicine [address] [place] [address] GROWTH 05/22/2025 1:45 PM EDT Routine Office Visit OB/Gynecology [address] [place] [address] Milagro Ta, BREAK OUT MAN.CNM [address] [facility] [address] 1 week OB 05/28/2025 3:00 PM EDT Routine Office Visit OB/Gynecology [address] [place] [address] Isabel Kelsey, BREAK OUT MAN.[employer] [address] [place] [address] 1 week OB 06/05/2025 1:45 PM EDT Routine Office Visit OB/Gynecology [address] [place] [address] Milagro Ta, BREAK OUT MAN.CNM [address] [facility] [address] 1 week OB documented as of this encounter Visit Diagnoses Not on filedocumented in this encounter Care Teams Miller Head Relationship Specialty Start Date End Date Dallas Hopkins MD [address] [place] [address] PCP - General Family Medicine 05/23/24 Deonna Melgoza, BREAK OUT MAN.[employer] [address] [place] [address] Optical Goods Drill Operator Family Medicine 09/15/24 04/19/25 Lela Post PA-C [address] [place], [place] [phone] Optical Goods Drill Operator Internal Medicine 09/15/24 10/09/24 documented as of this encounter
--- OUTSIDE RECORDS SUMMARY | 2025-04-22 06:55 | XMS_ITS | Encounter Summary ---
Author Organization [facility] Address [address] [place] [address] Care Team Providers Care Powder Blender And Pourer Name Role Phone Dallas Hopkins MD Primary Care Provider [phone] Source Comments In the event this information is protected by the Federal Confidentiality of Alcohol and Drug AbusePatient Records regulations: The Federal rules restrict any use of the information to criminally investigate or prosecute any alcohol or drug abuse patient.[facility] Encounter Details Date Type Department Care Team (Late st Contact Info) Description 04/20/2025 Get Medical Advice OB/Gynecology [address] [place] [address] Milagro aT APRN.[facility] [address] [place] [phone] Consistent cramps Social History Tobacco Use Types Packs/Day Years [...] is lower risk 6 01/09/2025 Data from: https://www.neighborhoodatlas.[facility].edu/ . Last address used for calculation [...] Contact Info) Description 04/22/2025 11:20 AM EDT [facility] Hematology/Oncolog y [address] [place] [address] Clinic, Virtual Anemia [address] [place] [address] RE-SCHEDULED 04/23/2025 5:20 PM EDT Routine Office Visit OB/Gynecology [facility] [address] [place] [address] Zhao Biggs MD [address] [facility] [address] [place] [phone] 32 weeks ob/ rescheduled from 04-16-25 05/01/2025 3:50 PM EDT Routine Office Visit Obstetrics/Gynecol ogy [address] [place] [address] [place] [address] [place] [address] 3 week 05/08/2025 11:00 AM EDT Routine Office Visit Maternal Medicine [address] [place] [address] growth pwer CS 05/08/2025 2:45 PM EDT Routine Office Visit OB/Gynecology [address] [place] [address] Milagro Ta APRN.[facility] 75[address] [facility] [address] 1 week 05/15/2025 2:40 PM EDT Routine Office Visit Obstetrics/Gynecol ogy [address] [place] [address] [place] [address] [place] [address] 1 week OB 05/15/2025 3:30 PM EDT Routine Office Visit Maternal Medicine [address] [place] [address] GROWTH 05/22/2025 1:45 PM EDT Routine Office Visit OB/Gynecology [address] [place] [address] Milagro Ta, RAD TECH.CNM [address] [facility] [address] 1 week OB 05/28/2025 3:00 PM EDT Routine Office Visit OB/Gynecology [address] [place] [address] Isabel Kelsey RAD TECH.RETAIL CASHIER [address] [place] [address] 1 week OB 06/05/2025 1:45 PM EDT Routine Office Visit OB/Gynecology [address] [place] [address] Milagro Ta, RAD TECH.CNM [address] [facility] [address] 1 week OB documented as of this encounter Visit Diagnoses Not on filedocumented in this encounter Care Teams Powder Blender And Pourer Relationship Specialty Start Date End Date Dallas Hopkins MD [address] [place] [address] PCP - General Family Medicine 05/23/24 documented as of this encounter
--- OUTSIDE RECORDS SUMMARY | 2025-04-22 06:55 | XMS_ITS | Clinical Summary ---
Author Organization [facility] Address [address] [place], [place] [id number] Care Team Providers Care Heel Builder Name Role Phone Dallas Hopkins MD Primary Care Provider [phone] Allergies No known active allergies Medications [id number] 4 mg iron- 0.5 mg-150 mg cap Take 1 Each by mouth once daily. 4 Active clotrimazole-be tamethasone (LOTRISONE) creamIndication s:Rash Apply 1 application to affected area two times a day for 7 days. 45 g 5 Active Active Problems Problem Noted Date Diagnosed Date Anemia complicating , third trimester 0 03/23/2025 Overview (03/23/2025): Both iron and B12>hematology consult ordered. Assessment & Plan (04/02/2025 3:35 PM EDT): , GI problems, unspecified trimester Overview (03/20/2025): Supervision of normal first , antepartu m 12/12/2024 Overview (04/02/2025): Care Checklist : Vaccines: [] Flu vaccine [] declined [] RSV vaccine 32 0/7 - 36 6/ (Jun - Nov) [] declined [] COVID vaccine [] declined [] TDaP 27-36 [] declined First trimester: [x] Dating US [x] 1st tri labs [x] Pap smear --due [] Carrier screening [x] declined [x] NIPT screening [] declined [x] First trimester anatomy scan [] declined [] universal ASA ordered (start 12w-16w) [] declined [] M Power Consult [x] not indicated [] declined Second trimester: [x] Anatomy scan [x] Mode of Delivery - vaginal [] Feeding - [] Pump ordered (discussed aeroflow) [x] Diabetes screen [x] CBC, RPR [] Behavioral Health Screening Third trimester (28-30 weeks): [] Consent [] Contraception [] Candy Dipper [] TeamBirth handout Third trimester (36-40 weeks): [] GBS [] Presentation - [] Scheduled [] yes - Hibiclens, pre-op instructions, CBC, T&S ordered [] no [] H&P [] Preferences worksheet [] Scanned in EMR [] Patient to bring copy to hospital [] Declined Assessment & Plan (01/09/2025 3:34 PM EDT): Ulcerative colitis Overview (03/20/2025): Diagnosed in 2018. No current medications, no symptoms. Has appt with GI physician in 01/23., pt canceled. Enc'd to reschedule. 28w growth scan: 55%tile 32w____ 36w____ ADHD (attention deficit hyperactivity disorder) Estimated Date of Delivery Comme nts Yes 06/07/2025 Based on Ultraso und Resolved Problems Problem Noted Date Diagnosed Date Resolved Date Retained products of concept ion after miscarriage 08/23/2023 08/23/2023 Encounters Date Type Department Care Team Description 04/20/2025 Get Medical Advice OB/Gynecology [address] [place] [address] Milagro Ta, MAMMOGRAPHY TECH.CNM Consistent cramps 04/17/2025 1:00 PM EDT Routine Office Visit Obstetrics/Gynecolo gy [address] [place] [address] Inge Garland MD care, subsequent in third trimester (HCC) (Primary Dx) 04/16/2025 3:30 PM EDT Routine Office Visit Maternal Medicine [address] [place] [address] Supervision of high risk in third trimester (HCC) (Primary Dx); Ulcerative colitis without complications, unspecified location (HCC); Obesity affecting , antepartum, third trimester (HCC) 04/08/2025 Telephone [facility] Provider OB [address] [place] [address] Letty Ashton APRN.CNM 04/08/2025 Get Medical Advice OB/Gynecology [address] [place] [address] Milagro Ta APRN.CNM Swelling 04/02/2025 3:15 PM EDT Routine Office Visit OB/Gynecology [address] [place] [address] Isabel Kelsey APRN.PATIENT SAFETY MANAGER Anemia complicating , third trimester (HCC) (Primary Dx); 30 weeks gestation of (HCC); Supervision of normal first , antepartum (HCC) 04/02/2025 Travel 03/21/2025 Results Follow-Up [facility] Provider OB [address] [place], [place] [id number] Milagro Ta APRN.CNM 03/20/2025 2:45 PM EDT Routine Office Visit OB/Gynecology [address] [place] [address] Milagro Ta APRN.CNM , GI problems, unspecified trimester (HCC) (Primary Dx); Other ulcerative colitis without complication (HCC); 28 weeks gestation of (HCC); Encounter for supervision of normal first in second trimester (HCC); Supervision of normal first , antepartum (HCC) 03/19/2025 2:30 PM EDT Routine Office Visit Maternal Medicine [address] [phone] , GI problems, unspecified trimester (HCC) (Primary Dx); Ulcerative colitis without complications, unspecified location (HCC); 28 weeks gestation of (HCC) 03/05/2025 Get Medical Advice OB/Gynecology [address] [place] [address] Milagro Ta APRN.CNM Blood pressure reading 02/25/2025 Get Medical Advice OB/Gynecology [address] [place] [address] Milagro Ta APRN.CNM Sharp sudden pains near vagina 02/13/2025 2:45 PM EDT Routine Office Visit OB/Gynecology [address] [place] [address] Milagro Ta, LEANNA.IANM Supervision of normal first , antepartum (HCC) (Primary Dx); 23 weeks gestation of (HCC); Ulcerative colitis without complications, unspecified location (HCC); Screening for diabetes mellitus; Rash 02/13/2025 Travel from Last 3 Months Immunizations Immunization Administration Dates Next Due Haemophilus influenzae b (Hi b) vaccine, unspecified formulation 03/29/1994,01/04/1994,1993 diphtheria tetanus pertussis (DTP) vaccine 03/29,01/04/1994,1993 diphtheria tetanus pertussis (DTaP) vaccine, unspecified formulation 10/03/1995 hepatitis A (HepA) vaccine, unspecified formulation 11/09/2009 hepatitis B (HepB) vaccine, 3-dose series, age 0 yr - 19 yr (ENGERIX B-PEDS, RECOMBIVAX HB-PEDS) 02/08/2010,11/09/2009,08/04/2009 measles mumps rubella (MMR) vaccine (M-M-R II, PRIORIX) 08/04/2009,10/03/1995 meningococcal (MenACWY-D) va ccine, quadrivalent (MENACTRA) 11/09/2009 poliovirus (IPV) vaccine, in activated (IPOL) 08/04/2009 poliovirus vaccine, unspecified formulation 09/08,01/04/1994,1993 tetanus diphtheria pertussis (Tdap) vaccine, age 7+ yr (ADACEL, BOOSTRIX) 05/23/2024,06/01/2015,08/04/2009 varicella (MESSI) vaccine (VARIVAX) 02/08/2010,11/2009 Family History Medical History Relation Comments Alcohol abuse Father Diabetes Mother Relation Status Comments Father Alive Mother Alive Social History Tobacco Use Types Packs/Day Years Used Date Smoking Tobacco: Never Smokeless Tobacco: Never Tobacco Cessation:Counseling Given: Not Answered Alcohol Use Standard Drinks/Week Comments Yes 0 (1 standard drink = 0.6 oz pur e alcohol) rare PHQ-2 Answer Date Recorded PHQ-2 score 0 05/23/2024 Area Deprivation Index Answer Date Elia rded National Score (1-100), lowe r number is lower risk 73 01/09/2025 State Score (1-10), lower number is lower risk 6 01/09/2025 Data from: https://www.neighborhoodatlas.medicine.[facility].edu/ . Last address used for calculation [...] Sign Reading Time Taken Comments Blood Pressure 109/72 04/02/2025 3:17 PM EDT Pulse 115 04/02/2025 3:17 PM EDT Temperature 37 C (98.6 F) 05/23/2024 11:32 AM EDT Respiratory Rate 18 08/23/2023 3:53 PM EST Oxygen Saturation 98% 05/23/2024 1: 52 PM EDT Inhaled Oxygen Concentration - - Weight 94.3 kg (207 lb 14.3 oz) 04/02/2025 3:17 PM EDT Height 172.7 cm (5' 8 ) 04/02/2025 3:17 PM EDT Body Mass Index 31.61 04/02/2025 3:17 PM EDT Plan of Treatment Upcoming Encounters Date Type Department Care Team (Late st Contact Info) Description 04/22/2025 11:20 AM EDT [facility] Hematology/Oncolog y [address] [place] [address] Clinic, Virtual Anemia [address] [place] [address] RE-SCHEDULED 04/23/2025 5:20 PM EDT Routine Office Visit OB/Gynecology [facility] [address] [place] [address] [place] [address] [address] 32 weeks ob/ rescheduled from 04-16-25 05/01/2025 3:50 PM EDT Routine Office Visit Obstetrics/Gynecol ogy [address] [place] [address] [place] [address] [place] [address] 3 week 05/08/2025 11:00 AM EDT Routine Office Visit Maternal Medicine [address] [place] [address] growth pwer CS 05/08/2025 2:45 PM EDT Routine Office Visit OB/Gynecology [address] [place] [address] Milagro Ta APRN.CN [address] [facility] [place] [address] 1 week 05/15/2025 2:40 PM EDT Routine Office Visit Obstetrics/Gynecol ogy [address] [place] [address] [place] [address] [place] [address] 1 week OB 05/15/2025 3:30 PM EDT Routine Office Visit Maternal Medicine [address] [place] [address] GROWTH 05/22/2025 1:45 PM EDT Routine Office Visit OB/Gynecology [address] [place] [address] Milagro Ta APRN.CN [address] [facility] [place] [address] 1 week OB 05/28/2025 3:00 PM EDT Routine Office Visit OB/Gynecology [address] [place] [address] Isabel Kelsey MAMMOGRAPHY TECH.PATIENT SAFETY MANAGER [address] [facility] [place] [address] 1 week OB 06/05/2025 1:45 PM EDT Routine Office Visit OB/Gynecology [address] [place] [address] Milagro Ta, MAMMOGRAPHY TECH.CN [address] [facility] [place] [id number] 1 week OB Health Maintenance Due Date Last Done Comments Cervical Cancer Screening 2014 Covid-19 Vaccine (2023-2 5 season) 2024 Anxiety Screening 05/23/2025 05/23/2024, 05/23/2024 Depression Screening 05/23/2025 05/23/2024, 05/23/20 24 Influenza Vaccine (#1) 2025 DTaP,Tdap,Td Vaccine (8 - Td or Tdap) 05/23/2034 05/23/2024, 06/01/2015, 08/04/2009, Additional history exists Hepatitis B Vaccine Completed 02/08/2010, 11/09/2009, 08/04/2009 HIV Screening Completed 10/14/2024 Hepatitis C Screening Completed 10/14/2024 RSV Vaccine (No Doses Required) Completed Procedures Procedure Name Priority Date/Time Associated Diagnosis Comments CBC + DIFF Routine 04/16/2025 4:49 PM EDT Ulcerative colitis without complications, unspecified location (HCC) COMPREHENSIVE METABOLIC PANEL Routine 04/16/2025 4:49 PM EDT Ulcerative colitis without complications, unspecified location (HCC) OBSTETRIC ULTRASOUND WHI Routine 04/16/2025 4:08 PM EDT Ulcerative colitis without complications, unspecified location (HCC) UA DIP, URINE (POC) Routine 04/02/2025 3 :23 PM EDT FERRITIN BLD Routine 03/20/2025 4:06 PM EDT 23 weeks gestation of (HCC) Supervision of normal first , antepartum (HCC) IRON + TIBC Routine 03/20/2025 4:06 PM EDT 23 weeks gestation of ([facility]) Supervision of normal first , antepartum ([facility]) EXTRA TUBE MARCIA Routine 03/20/2025 4:06 PM EDT 23 weeks gestation of ([facility]) Supervision of normal first , antepartum ([facility]) CBC + DIFF Routine 03/20/2025 4:06 PM EDT 23 weeks gestation of ([facility]) Supervision of normal first , antepartum ([facility]) ANEMIA REFLEX PANEL Routine 03/20/2025 4 :06 PM EDT 23 weeks gestation of ([facility]) Supervision of normal first , antepartum ([facility]) SYPHILIS TREPONEMAL W/REFLEX Routine 03/20/2025 4:06 PM EDT 23 weeks gestation of ([facility]) Supervision of normal first , antepartum ([facility]) GEST GLUC SCREEN, 1-HR, 50 GM, NON-FASTING Routine 03/20/2025 4:06 PM EDT 23 weeks gestation of ([facility]) Screening for diabetes mellitus Supervision of normal first , antepartum ([facility]) C-REACTIVE PROTEIN (CRP) Routine 03/20/2025 4:06 PM EDT Ulcerative pancolitis without complication (HCC) VITAMIN B12 BLOOD Routine 03/20/2025 4:0 6 PM EDT Ulcerative pancolitis without complication (HCC) COMPREHENSIVE METABOLIC PANEL Routine 03/20/2025 4:06 PM EDT Ulcerative pancolitis without complication (HCC) UA DIP, URINE (POC) Routine 03/20/2025 2 :45 PM EDT OBSTETRIC ULTRASOUND WHI Routine 03/19/2025 2:29 PM EDT Ulcerative colitis without complications, unspecified location (HCC) HIV 1/2 COMBO WITH REFLEX TO DIFFERENTIATION Routine 10/14/2024 2:32 PM EST 6 weeks gestation of HEPATITIS C ANTIBODY IA WITH CONFIRMATION Routine 10/14/2024 2:32 PM EST 6 weeks gestation of from Last 3 Months or Most Recently Relevant to Health Maintenance Results * (ABNORMAL) COMPREHENSIVE METABOLIC PANEL (04/16/2025 4:49 PM EDT) Only the most recent of2 resultswithin the time period is included. [facility] Protein, Total 6.8 6.3 - 8.0 g/dL 04/16/2025 5:28 PM EDT [facility] Albumin 3.8(L) 3.9 - 4.9 g/dL 04/16/2025 5:28 PM EDT [facility] Calcium, Total 9.0 8.5 - 10.2 mg/dL 04/16/2025 5:28 PM EDT [facility] Bilirubin, Total 0.2 0.2 - 1.3 mg/dL 04/16/2025 5:28 PM EDT [facility] Alkaline Phosphatase 97 34 - 123 U/L 04/16/2025 5:28 PM EDT [facility] AST 12(L) 13 - 35 U/L 04/16/2025 5:28 PM EDT [facility] ALT 9 7 - 38 U/L 04/16/2025 5:28 PM EDT [facility] Glucose 85 74 - 99 mg/dL 04/16/2025 5:28 PM EDT [facility] Comment: The [place] Diabetes Association (ADA) provides guidance for cutoff [...] Standards of Medical Care in Diabetes 2016, [place] [employer] Association. Diabetes Care. 2016.39(Suppl 1). BUN 5(L) 7 - 21 mg/dL 04/16/2025 5:28 PM EDT [facility] Creatinine 0.50(L) 0.58 - 0.96 mg/dL 04/16/2025 5:28 PM EDT [facility] Sodium 136 136 - 144 mmol/L 04/16/2025 5:28 PM EDT [facility] Potassium 3.9 3.7 - 5.1 mmol/L 04/16/2025 5:28 PM EDT [facility] Chloride 102 98 - 107 mmol/L 04/16/2025 5:28 PM EDT [facility] CO2 22 22 - 30 mmol/L 04/16/2025 5:28 PM EDT [facility] Anion Gap 12 8 - 15 mmol/L 04/16/2025 5:28 PM EDT [facility] Estimated Glomerular Filtration Rate 129 >=60 mL/min/1. 73m 04/16/2025 5:28 PM EDT [facility] Comment:Estimated Glomerular Filtration Rate (eGFR) is [...] Rizwana Arboleda DO LABORATORY Final Res ult [facility] [address] [place] [address], * (ABNORMAL) COMPLETE BLOOD COUNT AND DIFFERENTIAL (04/16/2025 4:49 PM EDT) Only the most recent of2 resultswithin the time period is included. WBC 12.70(H) 3.70 - 11.00 k/uL 04/16/2025 5:04 PM EDT [facility] RBC 4.08 3.90 - 5.20 m/uL 04/16/2025 5:04 PM EDT [facility] Hemoglobin 10.1(L) 11.5 - 15.5 g/dL 04/16/2025 5:[facility] Hematocrit 32.3(L) 36.0 - 46.0 % 04/16/2025 5:04 [facility] MCV 79.2(L) 80.0 - 100.0 fL 04/16/2025 5:04 PM [facility] MCH 24.8(L) 26.0 - 34.0 pg 04/16/2025 5:04 PM [facility] MCHC 31.3 30.5 - 36.0 g/dL 04/16/2025 5:04 PM [facility] RDW-CV 14.1 11.5 - 15.0 % 04/16/2025 5:04 PM [facility] Platelet Count 294 150 - 400 k/uL 04/16/2025 5:04 PM [facility] MPV 10.1 9.0 - 12.7 fL 04/16/2025 5:04 PM EDT [facility] Neutrophils % 67.4 % 04/16/2025 5:04 PM EDT [facility] Abs Neut 8.56(H) 1.45 - 7.50 k/uL 04/16/2025 5:04 PM EDT [facility] Lymphocytes % 23.5 % 04/16/2025 5:04 PM EDT [facility] Abs Lymph 2.98 1.00 - 4.00 k/uL 04/16/2025 5:04 PM EDT [facility] Monocytes % 7.1 % 04/16/2025 5:04 PM EDT [facility] Abs Polk 0.90(H) <0.87 k/uL 04/16/2025 5:04 PM EDT [facility] Eosinophils % 0.5 % 04/16/2025 5:04 PM EDT [facility] Abs Eosin 0.06 <0.46 k/uL 04/16/2025 5:04 PM EDT [facility] Basophils % 0.2 % 04/16/2025 5:04 PM EDT [facility] Abs Baso 0.03 <0.11 k/uL 04/16/2025 5:04 PM EDT [facility] Immature Granulocytes % 1.3 % 04/16/2025 5:04 PM EDT [facility] Abs Immature Gran 0.17(H) <0.10 k/uL 04/16/2025 5:04 PM EDT [facility] NRBC 0.0 /100 WBC 04/16/2025 5:04 PM EDT [facility] Absolute nRBC <0.01 <0.01 k/uL 04/16/2025 5:04 PM EDT [facility] Diff Type Auto 04/16/2025 5:04 PM EDT [facility] Blood BLOOD SPECIMEN / Unknown Venipuncture / Unknown 04/16/2025 4:49 PM EDT 04/16/2025 4:49 PM EDT us Rizwana Arboleda DO LABORATORY Final Res ult [facility] [address] [place] [address], [place] * OBSTETRIC ULTRASOUND WHI (04/16/2025 4:08 PM [...] 12 oz EFW by: Hadlock (HC-AC-FL) Extended Embroiderer Hand 5.2 mm Extremities / Bony Struc FL [...] Read By: Rizwana Arboleda MD Milagro Ta MAMMOGRAPHY TECH.[facility] Result * (ABNORMAL) UA DIP, URINE (POC) (04/02/2025 3:23 PM EDT) Only the most recent of2 resultswithin the time period is included. GLUCOSE UA (POCT) Negative Negative mg/dL [facility] BILIRUBIN UA (POCT) Negative Negative [facility] KETONE UA (POCT) Negative Negative mg/dL [facility] SPECIFIC GRAVITY UA (POCT) 1.025 1.005 - 1.030 [facility] HEMOGLOBIN/BLOOD UA (POCT) Negative Negative [facility] PH UA (POCT) 6.5 4.5 - 8.0 [facility] PROTEIN UA (POCT) Trace(A) Negative mg/dL [facility] UROBILINOGEN UA (POCT) 0.2 Normal E.U./dL [facility] NITRITE UA (POCT) Negative Negative [facility] LEUKOCYTES UA (POCT) Negative Negative [facility] COLOR UA (POCT) [facility] CLARITY UA (POCT) Clear [facility] 04/02/2025 3:2 3 PM EDT Narrative [facility] POINT OF CARE - 04/02/2025 3:23 PM EDT Location:[facility], [address] [place] [address], [address] Isabel Kelsey MAMMOGRAPHY TECH.PATIENT SAFETY MANAGER POC TESTING Final R esult Performing Organization Address City/[facility]/ZIP Co de Phone Number [facility] POINT OF CARE [address] * EXTRA TUBE MARCIA (03/20/2025 4:06 PM EDT) Blood BLOOD SPECIMEN / Unknown Venipuncture / Unknown 03/20/2025 4:06 PM EDT 03/20/2025 4:07 PM EDT Milagro Ta MAMMOGRAPHY TECH.CNQi LABORATORY Fin al Result Performing Organization Address [facility] Co de Phone Number [facility] [address] [place] [address], [place] * SYPHILIS TREPONEMAL W/REFLEX (03/20/2025 4:06 PM EDT) Syphilis Treponemal Screen Nonreactive Nonreactive 03/21/2025 10:[address] [facility] Syphilis Interpretation Cannot exclude recent Treponemal infection if specimen collected within 7-10 days after appearance of suspect lesions or 2-3 weeks after an exposure. Clinical correlation is required. 03/21/2025 10:[address] [facility] Blood BLOOD SPECIMEN / Unknown Venipuncture / Unknown 03/20/2025 4:06 PM EDT 03/20/2025 4:07 PM EDT Milagro Ta MAMMOGRAPHY TECH.CNQi LABORATORY Fin al Result [facility] [address] [address], [place] * GESTATIONAL GLUCOSE SCREEN, 1-HOUR, 50 GRAM, NON-FASTING (03/20/2025 4:06 PM EDT) Glucose Scrn, Preg 87 74 - 134 mg/dL 03/20/2025 4:37 PM EDT [facility] Comment:[place] Congress of Obstetricians and Gynecologists (Adan/Bree) guidelines state a gestational diabetes mellitus positive screen is made, in women not previously diagnosed with overt diabetes, when the 1 hr plasma glucose level is equal to or above 140 mg/dL. The [facility] Investment Accountant and [facility] recommends a 135 mg/dL cutoff. Blood BLOOD SPECIMEN / Unknown Venipuncture / Unknown 03/20/2025 4:06 PM EDT 03/20/2025 4:07 PM EDT Milagro Ta APRN.CNM LABORATORY Fin al Result [facility] [address] [place] [address], [place] * (ABNORMAL) VITAMIN B12 (03/20/2025 4:06 PM EDT) Vitamin B12 199(L) 232 - 1,245 pg/mL 03/21/2025 12:[address] [facility] Blood BLOOD SPECIMEN / Unknown Venipuncture / Unknown 03/20/2025 4:06 PM EDT 03/20/2025 4:07 PM EDT Grecia Wise MD, PhD LABORATORY Final Result [facility] [address] [address], [place] * (ABNORMAL) IRON AND TIBC (03/20/2025 4:06 PM EDT) Iron 24(L) 41 - 186 ug/dL 03/20/2025 4:48 PM EDT [facility] TIBC 551(H) 232 - 386 ug/dL 03/20/2025 4:48 PM EDT [facility] Transferrin Saturation 4.4(L) 15.0 - 57.0 % 03/20/2025 4:48 PM EDT [facility] Blood BLOOD SPECIMEN / Unknown Venipuncture / Unknown 03/20/2025 4:06 PM EDT 03/20/2025 4:07 PM EDT Milagro Ta APRN.CNM LABORATORY Fin al Result Performing Organization Address [facility] de Phone Number [facility] [address] [place], [place] [id number], [place] * (ABNORMAL) FERRITIN (03/20/2025 4:06 PM EDT) Ferritin 11.0(L) 14.7 - 205.1 ng/mL 03/20/2025 4:32 PM EDT [facility] Blood BLOOD SPECIMEN / Unknown Venipuncture / Unknown 03/20/2025 4:06 PM EDT 03/20/2025 4:07 PM EDT Milagro Ta APRN.CNM LABORATORY Fin al Result Performing Organization Address [facility] de Phone Number [facility] [address] [place] [address], [place] * C-REACTIVE PROTEIN (03/20/2025 4:06 PM EDT) CRP 0.4 <0.9 mg/dL 03/20/2025 4:32 PM EDT [facility] Blood BLOOD SPECIMEN / Unknown Venipuncture / Unknown 03/20/2025 4:06 PM EDT 03/20/2025 4:07 PM EDT Grecia Wise MD, PhD LABORATORY Final Result Performing Organization Address [facility] de Phone Number [facility] [address] [place] [address], [place] * OBSTETRIC ULTRASOUND WHI (03/19/2025 2:29 PM EDT) Anatomical Region Laterality Modality Other 03/19/2025 2:29 PM EDT Narrative 03/19/2025 4:19 PM EDT Indication Evaluation of growth; history of miscarriage; Ulcerative colitis Impression - Single, live, intrauterine . - presentation is breech. - The biometry is consistent with the assigned gestational dating. - The EFW is 1327 g, at the 55%. AC is at the 43%. - The amniotic fluid volume is normal amount with an MVP of 6.9 cm and an KENZIE of 16 cm. - The placenta is anterior, fundal. - No malformations visualized on a limited survey as detailed below. Recommendations - growth scan every 4 weeks - Additional follow up as clinically indicated. Maternal Assessment Height 173 cm Height (ft) 5 ft Height (in) 8 in Physical Exam Initial weight (lb) 173 lb Initial BMI 26.30 kg/m Method Transabdominal ultrasound examination Gonzalez . Number of fetuses: 1 Dating LMP on: 08/31/2024 GA by LMP 28 w + 4 d PAPITO by LMP: 06/07/2025 Ultrasound examination on: 03/19/2025 GA by U/S based upon: AC, BPD, Femur, HC GA by U/S 30 w + 0 d PAPITO by U/S: 05/28/2025 Assigned: based on the LMP, selected on 12/05/2024 Assigned GA 28 w + 4 d Assigned PAPITO: 06/07/2025 General Evaluation Cardiac activity present. FHR 132 bpm. movements: present. Presentation: breech Placenta: Placental site: anterior, fundal Umbilical cord: Cord vessels: 3 vessel cord. Insertion site: normal insertion Amniotic fluid: Amount of AF: normal amount. MVP 6.9 cm. KENZIE 16.0 cm. Q1 3.7 cm, Q2 1.0 cm, Q3 6.9 cm, Q4 4.4 cm Growth Overview Exam date GA BPD (mm) HC (mm) AC (mm) FL (mm) HL (mm) EFW (g) 01/09/2025 18w 5d 41.6 46% 161.4 55% 140.4 70% 28.3 65% 27.4 54% 270 63% 03/19/2025 28w 4d 78.2 98% 296.5 98% 243.3 43% 52.6 42% 1327 55% Biometry Standard BPD 78.2 mm 31w 3d 98% Hadlock OFD 107.1 mm 32w 0d >99% Nicolaides HC 296.5 mm 32w 0d 98% Betty AC 243.3 mm 28w 4d 43% Hadlock Femur 52.6 mm 28w 1d 42% Betty EFW 1,327 g 28w 5d 55% Hadlock EFW (lb) 2 lb EFW (oz) 15 oz EFW by: Hadlock (HC-AC-FL) Extended Embroiderer Hand 3.2 mm Extremities / Bony Struc FL / HC 0.18 Other Structures FHR 132 bpm Anatomy Cranium: normal Lateral ventricles: normal Cavum septi pellucidi: normal Cerebellum: normal Cisterna magna: normal Lips: normal Nose: normal 4-chamber view: normal RVOT view: normal LVOT view: normal 3-vessel view: normal Heart / Thorax Situs: situs solitus (normal) Aortic arch view: normal Cardiac rhythm: regular (normal) Diaphragm: normal Stomach: normal Kidneys: normal Bladder: normal sex: female Wants to know sex: yes Maternal Structures Uterus / Cervix Cervical length 39.7 mm Performed By: Rhonda Mendoza [facility] Read By: Nikki Pierre MD Milagro Ta MAMMOGRAPHY TECH.[facility] Result * HIV 1/2 COMBO WITH REFLEX TO DIFFERENTIATION (10/14/2024 2:32 PM EST) HIV 12 Combo (Ag/Ab) Nonreactive Nonreactive 10/15/2024 11:[address] [facility] HIV-1/2 AB (Confirmatory) 10/15/2024 11:[address] [facility] Comment:Test not indicated. HIV Interpretation 10/15/2024 11:[address] [facility] Comment: No evidence of HIV-1 or HIV-2 infection. Should recent infection be suspected, repeat testing may be considered 2-3 weeks after this draw. [place] Rev. Code 3701.243(E): This information has been disclosed to you from confidential records protected from disclosure by state law. You shall make no further disclosure of this information without the specific, written, and informed release of the individual to whom it pertains or as otherwise permitted by state law. A general authorization for the release of medical or other information is not sufficient for the purpose of the release of HIV test results or diagnoses. Blood BLOOD SPECIMEN / Unknown Venipuncture / Unknown 10/14/2024 2:32 PM EST 10/14/2024 2:33 PM EST Robert Vincent MD LABORATORY Final Resul t Performing Organization Address [facility] Co de Phone Number [facility] [address] * HEPATITIS C ANTIBODY IA WITH CONFIRMATION (10/14/2024 2:32 PM EST) Hep C Antibody IA Negative Negative 10/15/2024 11:[address] [facility] Comment:The result suggests no evidence of active infection with Hepatitis C virus. Should recent infection be suspected, repeat testing may be considered 4-6 weeks after this draw. Blood BLOOD SPECIMEN / Unknown Venipuncture / Unknown 10/14/2024 2:32 PM EST 10/14/2024 2:33 PM EST Robert Vincent MD LABORATORY Final Resul t Performing Organization Address [facility] Co de Phone Number [facility] [address] from Last 3 Months or Most Recently Relevant to Health Maintenance Insurance [facility] PPO Member Subscriber Plan / Payer (Ef fective 2022-Present) Name:Caleb Sifuentes Relation to Subscriber:Self Name:Caleb Sifuentes Payer ID:Not on file Type:PPO Address: [place] [id number] Care Teams Heel Builder Relationship Specialty Start Date End Date Dallas Hopkins MD [address] [facility] [place] [address] PCP - General Family Medicine 05/23/24
--- OUTSIDE RECORDS SUMMARY | 2025-04-22 06:55 | XMS_ITS | Encounter Summary ---
Author Organization [facility] [place] [facility] Address [address] [place] [address] Care Team Providers Care Assembler Metal Building Name Role Phone Dallas Hopkins MD Primary Care Provider Deonna Melgoza APRN.VP & GENERAL COUNSEL Unavailable [phone] Source Comments In the event this information is protected by the Federal Confidentiality of Alcohol and Drug AbusePatient Records regulations: The Federal rules restrict any use of the information to criminally investigate or prosecute any alcohol or drug abuse patient.[facility] [place] [facility] Encounter Details Date Type Department Care Team (Late st Contact Info) Description 04/08/2025 [place] [address] [place] [address] Letty Ashton, NAIL POLISH BRUSH MACHINE FEEDER.CNM [address] [place] [address] Social History Tobacco Use Types Packs/Day Years [...] is lower risk 6 01/09/2025 Data from: https://www.neighborhoodatlas.medicine.[facility]/ . Last address used for calculation [address] 01/09/2025 Estimated Date of Delivery Comme nts Yes 06/07/2025 Based on Ultraso und Sex and Gender Information Value Date Recorded Sex Assigned at Not on file Legal Sex Female 11:10 AM EST Gender Identity Not on file Sexual Orientation Not on file documented as of this encounter Progress Notes * Letty Ashton APRN.CNM - 04/08/2025 4:40 PM EDT Spoke with patient who described falling back off a chair today at 11:00am. She states she fell on her bottom but did not hit hard. She states she did not hit her abdomen and has felt movement a couple times since then. She was advised to come to L&D Triage for monitoring. documented in this encounter Plan of Treatment Upcoming Encounters Date Type Department Care Team (Late st Contact Info) Description 04/22/2025 11:20 AM EDT [facility] Hematology/Oncolog y [address] [place] [address] Clinic, Virtual Anemia [address] [place] [address] RE-SCHEDULED 04/23/2025 5:20 PM EDT Routine Office Visit OB/Gynecology [facility] [address] [place] [address] Zhao Biggs MD [address] [phone] 32 weeks ob/ rescheduled from 04-16-25 05/01/2025 3:50 PM EDT Routine Office Visit Obstetrics/Gynecol ogy [address] [place] [address] [place] [address] [place] [address] 3 week 05/08/2025 11:00 AM EDT Routine Office Visit Maternal Medicine [address] [place] [address] growth pwer CS 05/08/2025 2:45 PM EDT Routine Office Visit OB/Gynecology [address] [place] [address] Milagro Ta, NAIL POLISH BRUSH MACHINE FEEDER.CN [address] [facility] [address] 1 week 05/15/2025 2:40 PM EDT Routine Office Visit Obstetrics/Gynecol ogy [address] [place] [address] [place] [address] [place] [address] 1 week OB 05/15/2025 3:30 PM EDT Routine Office Visit Maternal Medicine [address] [facility] [address] [place] [address] GROWTH 05/22/2025 1:45 PM EDT Routine Office Visit OB/Gynecology [address] [place] [address] Milagro Ta, NAIL POLISH BRUSH MACHINE FEEDER.CN [address] [facility] [address] 1 week OB 05/28/2025 3:00 PM EDT Routine Office Visit OB/Gynecology [address] [place] [address] Isabel Kelsey NAIL POLISH BRUSH MACHINE FEEDER.VP & GENERAL COUNSEL [address] [place] [address] 1 week OB 06/05/2025 1:45 PM EDT Routine Office Visit OB/Gynecology [address] [place] [address] Milagro Ta, NAIL POLISH BRUSH MACHINE FEEDER.CN [address] [facility] [address] 1 week OB documented as of this encounter Visit Diagnoses Not on filedocumented in this encounter Care Teams Assembler Metal Building Relationship Specialty Start Date End Date Dallas Hopkins MD [address] [place] [address] PCP - General Family Medicine 05/23/24 Deonna Melogza, LEANNA.VP & GENERAL COUNSEL [address] [facility] [place] [address] Street Department Dispatcher Family Medicine 09/15/24 04/19/25 documented as of this encounter
--- OUTSIDE RECORDS SUMMARY | 2025-04-22 06:55 | XMS_ITS | Encounter Summary ---
Author Organization [facility] Address [address] [place] [address] Care Team Providers Care Manager Forms Name Role Phone Dallas Hopkins MD Primary Care Provider Deonna Melgoza APRN.DUPLICATOR PUNCH SET UP OPERATOR Unavailable Source Comments In the event this information is protected by the Federal Confidentiality of Alcohol and Drug AbusePatient Records regulations: The Federal rules restrict any use of the information to criminally investigate or prosecute any alcohol or drug abuse patient.[facility] Encounter Details Date Type Department Care Team (Late st Contact Info) Description 04/08/2025 Get Medical Advice OB/Gynecology [address] [place] [address] Milagro Ta APRN.[facility] [address] [facility] [address] Swelling Social History Tobacco Use Types Packs/Day Years [...] is lower risk 6 01/09/2025 Data from: https://www.neighborhoodatlas.medicine.[facility].edu/ . Last address used for calculation [...] Contact Info) Description 04/22/2025 11:20 AM EDT [facility] Hematology/Oncolog y [address] [place] [address] Clinic, Virtual Anemia [address] [place] [address] RE-SCHEDULED 04/23/2025 5:20 PM EDT Routine Office Visit OB/Gynecology [facility] [address] [place] [address] Zhao Biggs MD [address] [phone] 32 weeks ob/ rescheduled from 04-16-25 05/01/2025 3:50 PM EDT Routine Office Visit Obstetrics/Gynecol ogy [address] [place] [address] [place] [address] [place], [place] [phone] 3 week 05/08/2025 11:00 AM EDT Routine Office Visit Maternal Medicine [address] [place], [place] [phone] growth pwer CS 05/08/2025 2:45 PM EDT Routine Office Visit OB/Gynecology [address] [place] [address] Milagro Ta APRN.CN [address] [facility] [address] 1 week 05/15/2025 2:40 PM EDT Routine Office Visit Obstetrics/Gynecol ogy [address] [place] [address] [place] [address] [place] [address] 1 week OB 05/15/2025 3:30 PM EDT Routine Office Visit Maternal Medicine [address] [place] [address] GROWTH 05/22/2025 1:45 PM EDT Routine Office Visit OB/Gynecology [address] [place] [address] Milagro Ta, RETIREMENT BENEFITS SPECIALIST.CNM 75[address] [facility] [address] 1 week OB 05/28/2025 3:00 PM EDT Routine Office Visit OB/Gynecology [address] [place] [address] Isabel Kelsey, RETIREMENT BENEFITS SPECIALIST.DUPLICATOR PUNCH SET UP OPERATOR [address] [place] [address] 1 week OB 06/05/2025 1:45 PM EDT Routine Office Visit OB/Gynecology [address] [place] [address] Milagro Ta, RETIREMENT BENEFITS SPECIALIST.CNM [address] [facility] [address] 1 week OB documented as of this encounter Visit Diagnoses Not on filedocumented in this encounter Care Teams Manager Forms Relationship Specialty Start Date End Date Dallas Hopkins MD [address] [place] [address] PCP - General Family Medicine 05/23/24 Deonna Melgoza, RETIREMENT BENEFITS SPECIALIST.DUPLICATOR PUNCH SET UP OPERATOR [address] [place] [address] Historiography Professor Family Medicine 09/15/24 04/19/25 documented as of this encounter
--- OUTSIDE RECORDS SUMMARY | 2025-04-22 06:55 | XMS_ITS | Encounter Summary ---
Author Organization [facility] Address [address] [place] [address] Care Team Providers Care Time Piece Repairer Name Role Phone Jorge L Holguin MD Primary Care Provider [phone] Encounter Details Date Type Department Care Team (Late st Contact Info) Description 11/01/2023 Orders Only [facility] OB [address] [facility] [address] [place] [address] Renae Brown MD [address] [facility] [address] [place] [address] Social History Tobacco Use Types Packs/Day Years [...] Procedure Name Priority Date/Time Associated Diagnosis Comments ULTRASOUND : OBSTETRICS Routine 07/17/20 10:34 AM EDT documented in this encounter Results * ULTRASOUND : OBSTETRICS (07/17/2023 10:34 AM EDT) Anatomical Region Laterality Modality Radiographic Adriana ging us Renae Brown MD IMG XR PROCEDURES Final Result documented in this encounter Visit Diagnoses Not on filedocumented in this encounter Care Teams Time Piece Repairer Relationship Specialty Start Date End Date Jorge L Holguin MD [address] [place] [address] PCP - General Family Medicine 07/16/23 documented as of this encounter
--- OUTSIDE RECORDS SUMMARY | 2025-04-22 06:55 | XMS_ITS | Encounter Summary ---
Author Organization [facility] Address [address] [place], [place] [address] Care Team Providers Care Bridge Painter Name Role Phone Dallas Hopkins MD Primary Care Provider [phone] Deonna Melgoza APRN.BLOCK SEALER Unavailable Source Comments In the event this information is protected by the Federal Confidentiality of Alcohol and Drug AbusePatient Records regulations: The Federal rules restrict any use of the information to criminally investigate or prosecute any alcohol or drug abuse patient.[facility] Reason for Referral * Consult, Test, Treat (Routine) - Authorized Specialty Diagnoses / Procedures Referred By Dani t Referred To Contact Hematology Diagnoses Anemia complicating , third trimester (HCC) 29 weeks gestation of (HCC) Other iron deficiency anemia Other vitamin B12 deficiency anemia Procedures CONSULT TO HEMATOLOGY OFFICE/OUTPATIENT [facility] 60 MINUTES Milagro Ta APRN.CNM [address] [facility] [address] Phone: tel: fax: Referral ID Status Reason Start Date Expiration Date Visits Requested Visits Authorized [id number] Authorized PCP Requested Referral 03/23/2025 03/23/2026 1 1 Encounter Details Date Type Department Care Team (Late st Contact Info) Description 03/21/2025 [place] [address] [place] [address] Milagro Ta APRN.CNM [address] [place] [id number] Social History Tobacco Use Types Packs/Day Years [...] is lower risk 6 01/09/2025 Data from: https://www.neighborhoodatlas.medicine.[facility].edu/ . Last address used for calculation [address] 01/09/2025 Estimated Date of Delivery Comme nts Yes 06/07/2025 Based on Ultraso und Sex and Gender Information Value Date Recorded Sex Assigned at Not on file Legal Sex Female 11:10 AM EST Gender Identity Not on file Sexual Orientation Not on file documented as of this encounter Miscellaneous Notes * Telephone Encounter - Milagro Ta APRN.CNM - 03/23/2025 8:48 AM EDT Pt is deficient in both iron and vitamin B12. I would like her to see hematology so both deficiencies can be appropriately addressed together. Consult ordered. Please let her know and assist with scheduling GRADY. Thank you, Milagro Ta APRN.CNM documented in this encounter Plan of Treatment Upcoming Encounters Date Type Department Care Team (Late st Contact Info) Description 04/22/2025 11:20 AM EDT [facility] Hematology/Oncolog y [address] [place] [address] Clinic, Virtual Anemia [address] [place] [address] RE-SCHEDULED 04/23/2025 5:20 PM EDT Routine Office Visit OB/Gynecology [facility] [address] [place] [address] Zhao Biggs MD [address] [facility] [address] [place] [phone] 32 weeks ob/ rescheduled from 04-16-25 05/01/2025 3:50 PM EDT Routine Office Visit Obstetrics/Gynecol ogy [address] [place] [address] [place] [address] [place] [address] 3 week 05/08/2025 11:00 AM EDT Routine Office Visit Maternal Medicine [address] [place] [address] growth pwer CS 05/08/2025 2:45 PM EDT Routine Office Visit OB/Gynecology [address] [place] [address] Milagro Ta APRN.CN [address] [facility] [address] 1 week 05/15/2025 2:40 PM EDT Routine Office Visit Obstetrics/Gynecol ogy [address] [place] [address] [place] [address] [place] [address] 1 week OB 05/15/2025 3:30 PM EDT Routine Office Visit Maternal Medicine [address] [facility] [address] [place] [address] GROWTH 05/22/2025 1:45 PM EDT Routine Office Visit OB/Gynecology [address] [place] [address] Milagro Ta APRN.CN 75[address] [facility] [address] 1 week OB 05/28/2025 3:00 PM EDT Routine Office Visit OB/Gynecology [address] [place] [address] Isabel Kelsey TECHNOLOGY DIRECTOR.BLOCK SEALER [address] [facility] [place] [address] 1 week OB 06/05/2025 1:45 PM EDT Routine Office Visit OB/Gynecology [address] [place] [address] Milagro Ta TECHNOLOGY DIRECTOR.[facility] 7575 [facility] [address] 1 week OB documented as of this encounter Visit Diagnoses Diagnosis Anemia complicating , third trimester (HCC)- Primary 29 weeks gestation of (HCC) state, incidental Other iron deficiency anemia Other vitamin B12 deficiency anemia documented in this encounter Care Teams Bridge Painter Relationship Specialty Start Date End Date Dallas Hopkins MD [address] [facility] [place] [address] PCP - General Family Medicine 05/23/24 Deonna Melgoza, TECHNOLOGY DIRECTOR.BLOCK SEALER [address] [facility] [place] [address] Pot Washer Family Medicine 09/15/24 04/19/25 documented as of this encounter
--- OUTSIDE RECORDS SUMMARY | 2025-04-22 06:55 | XMS_ITS | Encounter Summary ---
Author Organization [facility] Address [facility] [place] [address] Care Team Providers Care Space And Missile Operations Name Role Phone Dallas oHpkins MD Primary Care Provider Deonna Melgoza APRN.SOIL ENGINEER Unavailable [phone] Lela Post PA-C Unavailable [phone] Source Comments In the event this information is protected by the Federal Confidentiality of Alcohol and Drug AbusePatient Records regulations: The Federal rules restrict any use of the information to criminally investigate or prosecute any alcohol or drug abuse patient.[facility] Encounter Details Date Type Department Care Team (Late st Contact Info) Description 09/12/2024 [place] [address] Provider, Ccf Welcome to the [facility] Social History Tobacco Use Types Packs/Day Years [...] is lower risk 6 02/05/2024 Data from: https://www.neighborhoodatlas.medicine.[facility].edu/ . Last address used for calculation [...] Info) Description 04/22/2025 11:20 AM EDT [facility] Hematology/Oncolog y [address] [place] [address] Clinic, Virtual Anemia [address] [place] [address] RE-SCHEDULED 04/23/2025 5:20 PM EDT Routine Office Visit OB/Gynecology [facility] [address] [place] [address] Zhao Biggs MD [address] [facility] [address] [place] [phone] 32 weeks ob/ rescheduled from 04-16-25 05/01/2025 3:50 PM EDT Routine Office Visit Obstetrics/Gynecol ogy [address] [place] [address] [place] [address] [place] [address] 3 week 05/08/2025 11:00 AM EDT Routine Office Visit Maternal Medicine [address] [facility] [address] [place] [address] growth pwer CS 05/08/2025 2:45 PM EDT Routine Office Visit OB/Gynecology [address] [place] [address] Milagro Ta APRN.[facility] [address] [facility] [address] 1 week 05/15/2025 2:40 PM EDT Routine Office Visit Obstetrics/Gynecol ogy [address] [facility] [address] [place] [address] [place] [address] [place] [address] 1 week OB 05/15/2025 3:30 PM EDT Routine Office Visit Maternal Medicine [address] [place] [address] GROWTH 05/22/2025 1:45 PM EDT Routine Office Visit OB/Gynecology [address] [place] [address] Milagro Ta, FUNDRAISER.CNM 7575 [facility] [address] 1 week OB 05/28/2025 3:00 PM EDT Routine Office Visit OB/Gynecology [address] [place] [address] Isabel Kelsey FUNDRAISER.SOIL ENGINEER [address] [facility] [place] [address] 1 week OB 06/05/2025 1:45 PM EDT Routine Office Visit OB/Gynecology [address] [place] [address] Milagro Ta, FUNDRAISER.CNM 7575 [facility] [address] 1 week OB documented as of this encounter Visit Diagnoses Not on filedocumented in this encounter Care Teams Space And Missile Operations Relationship Specialty Start Date End Date Dallas Hopkins MD [address] [place] [address] PCP - General Family Medicine 05/23/24 Deonna Melgoza, FUNDRAISER.SOIL ENGINEER [address] [place] [address] Tent Worker Family Medicine 09/15/24 04/19/25 Lela Post PA-C [address] [place] [phone] Tent Worker Internal Medicine 09/15/24 10/09/24 documented as of this encounter
[2025-04-22 07:25] VITALS: BP 126/81; PULSE 99
[2025-04-22] MEDS: ACETAMINOPHEN 500 MG TABLET 1000 MG PO (08:12)
[2025-04-22 08:18] LABS: Glucose Urine UA NEGATIVE (NEGATIVE)
== END 2025-04-22 10:54 | disposition home or self-care (01) ==
LOC: FBCO 06:52 → FBC 06:54
PROVIDERS: Visit Provider Obstetrics & Gynecology
DX: O26.893 Other specified pregnancy related conditions, third trimester (principal); Z3A.32 32 weeks gestation of pregnancy
CPT/HCPCS: 59025; 81003

== ENCOUNTER 2025-05-26 06:21 | Observation (INO) | payer OTHER, SELFPAY ==
--- OUTSIDE RECORDS SUMMARY | 2025-05-12 15:15 | XMS_ITS | Encounter Summary ---
Author Organization [facility] Address [address] [place] [address] Care Team Providers Care Boomswing Operator Name Role Phone Dallas Hopkins MD Primary Care Provider [phone] Rachelle Mendez APRN.RECONCILIATION ANALYST Unavailable [phone] Source Comments In the event this information is protected by the Federal Confidentiality of Alcohol and Drug AbusePatient Records regulations: The Federal rules restrict any use of the information to criminally investigate or prosecute any alcohol or drug abuse patient.[facility] Reason for Visit * [place] Prior Authorization (Routine) - Authorized Specialty Diagnoses / Procedures Referred By Contac t Referred To Contact Diagnoses Anemia complicating , third trimester (HCC) Procedures IRON SUCROSE INJECTION PER 1 MG Madelyn Phillips APRN.RECONCILIATION ANALYST [address] [place] [address] Phone: tel: fax: Hematology/Oncology [address] [place] [address] Phone: tel: Referral ID Status Reason Start Date Expiration Date V isits Requested Visits Authorized [id number] Authorized 05/01/2025 10/07/2025 1 99 Encounter Details Date Type Department Care Team (Latest Contact Info) Description 05/12/2025 3:15 PM EDT [facility] Hematology/Oncology [address] [place] [address] [place] [address] Anemia complicating , third trimester (HCC) (Primary Dx) Social History Tobacco Use Types Packs/Day Years Used Date Smoking Tobacco: Never Smokeless Tobacco: Never Alcohol Use Standard Drinks/Week Comments Yes 0 (1 standard drink = 0.6 oz pur e alcohol) rare PHQ-2 Answer Date Recorded PHQ-2 score 0 05/23/2024 Area Deprivation Index Answer Date Elia rded National Score (1-100), lower number is lower ri sk 68 04/23/2025 State Score (1-10), lower number is lower risk 5 04/23/2025 Data from: https://www.neighborhoodatlas.medicine.[facility].edu/. Last address used for calculation [address] 04/23/2025 Estimated Date of Delivery Comme nts Yes 06/07/2025 Based on Ultraso und Sex and Gender Information Value Date Recorded Sex Assigned at Not on file Legal Sex Female 11:10 AM EST Gender Identity Not on file Sexual Orientation Not on file documented as of this encounter Last Filed Vital Signs Vital Sign Reading Time Taken Comments Blood Pressure 114/69 05/12/2025 1:10 PM EDT Pulse 82 05/12/2025 1:10 PM EDT Temperature 36.6 C (97.8 F) 05/12/2025 1:10 PM EDT Respiratory Rate 16 05/12/2025 1:10 PM EDT Oxygen Saturation 98% 05/12/2025 1:10 PM EDT Inhaled Oxygen Concentration - - Weight - - Height - - Body Mass Index - - documented in this encounter Plan of Treatment Upcoming Encounters Date Type Department Care Team (Late st Contact Info) Description 05/28/2025 3:00 PM EDT Routine Office Visit OB/Gynecology [address] [place] [address] Isabel Kelsey, CUT IN STATION OPERATOR.RECONCILIATION ANALYST [address] [facility] [address] [place] [id number] 1 week OB 06/01/2025 2:30 PM EDT Routine Office Visit Maternal Medicine [facility] [address] [place] [address] trent growth 3wks from 8-[address]an [facility] instructions. patient is aware of new date,time and location kd 06/05/2025 1:45 PM EDT Routine Office Visit OB/Gynecology [address] [place] [address] Milagro Ta APRN.CN 7575 [facility] [address] 1 week OB 07/24/2025 2:00 PM EDT Visit (SP) Office Hematology/Oncolog y [address] [place] [address] Madelyn Phillips CUT IN STATION OPERATOR.RECONCILIATION ANALYST [address] [place], [place] [phone] follow up documented as of this encounter Visit Diagnoses Diagnosis Anemia complicating , third trimester (HCC)- Primary documented in this encounter Administered Medications Inactive Administered Medications - up to 3 most recent administrations Medication Order MAR Action Action Date Dose Rate Site iron sucrose 200 mg injection (VENOFER) 200 mg, INTRAVENOUS, ONCE, 1 dose, On Sun05/12/25 at 1530Indications:Anemia complicating , third trimester (HCC) Given 05/12/2025 3:12 PM EDT 200 mg documented in this encounter Care Teams Boomswing Operator Relationship Specialty Start Date End Date Dallas Hopkins MD [address] [place] [address] PCP - General Family Medicine 05/23/24 Rachelle Mendez, CUT IN STATION OPERATOR.RECONCILIATION ANALYST [address] [place] [address] Manager Nicu Family Medicine 05/06/25 documented as of this encounter
--- OUTSIDE RECORDS SUMMARY | 2025-05-14 15:15 | XMS_ITS | Encounter Summary ---
Author Organization [facility] Address [address] [place] [address] Care Team Providers Care Basket Mender Name Role Phone Dallas Hopkins MD Primary Care Provider [phone] Rachelle Mendez APRN.BLOOD TESTER Unavailable [phone] Source Comments In the event this information is protected by the Federal Confidentiality of Alcohol and Drug AbusePatient Records regulations: The Federal rules restrict any use of the information to criminally investigate or prosecute any alcohol or drug abuse patient.[facility] Reason for Visit * Pioneer Prior Authorization (Routine) - Authorized Specialty Diagnoses / Procedures Referred By Contac t Referred To Contact Diagnoses Anemia complicating , third trimester (HCC) Procedures IRON SUCROSE INJECTION PER 1 MG Madelyn Phillips APRN.BLOOD TESTER [address] [place] [address] Phone: tel: fax: Hematology/Oncology [address] [place] [address] Phone: tel: Referral ID Status Reason Start Date Expiration Date V isits Requested Visits Authorized [id number] Authorized 05/01/2025 10/07/2025 1 99 Encounter Details Date Type Department Care Team (Latest Contact Info) Description 05/14/2025 3:15 PM EDT Infusion Center Hematology/Oncology [address] [place] [address] [place] [address] Anemia complicating , third trimester (HCC) (Primary [...] is lower risk 5 04/23/2025 Data from: https://www.neighborhoodatlas.medicine.[facility].edu/. Last address used for calculation [address] [...] Sign Reading Time Taken Comments Blood Pressure 130/79 05/14/2025 3:21 PM EDT Pulse 98 05/14/2025 3:21 PM EDT Temperature 36.6 C (97.9 F) 05/14/2025 3:21 PM EDT Respiratory Rate 18 05/14/2025 3:21 PM EDT Oxygen Saturation 98% 05/14/2025 3:21 PM EDT Inhaled Oxygen Concentration - - Weight - - Height - - Body Mass Index - - documented in this encounter Plan of Treatment Upcoming Encounters Date Type Department Care Team (Late st Contact Info) Description 05/28/2025 3:00 PM EDT Routine Office Visit OB/Gynecology [address] [place] [address] Isabel Kelsey, CLIENT ENGAGEMENT MANAGER.BLOOD TESTER [address] [facility] [place] [id number] 1 week OB 06/01/2025 2:30 PM EDT Routine Office Visit Maternal Medicine [facility] [address] [place] [address] trent growth 3wks from 8-1 per Yola Phelan [facility] instructions. patient is aware of new date,time and location kd 06/05/2025 1:45 PM EDT Routine Office Visit OB/Gynecology [address] [place] [address] Milagro Ta APRN.CN [address] [facility] [address] 1 week OB 07/24/2025 2:00 PM EDT Visit (SP) Office Hematology/[place]olog y [address] [place] [address] Madelyn Phillips CLIENT ENGAGEMENT MANAGER.BLOOD TESTER [address] [place], [place] [id number] follow up documented as of this encounter Visit Diagnoses Diagnosis Anemia complicating , third trimester (HCC)- Primary documented in this encounter Administered Medications Inactive Administered Medications - up to 3 most recent administrations Medication Order MAR Action Action Date Dose Rate Site iron sucrose 200 mg injection (VENOFER) 200 mg, INTRAVENOUS, ONCE, 1 dose, On Riri 05/14/25 at 1530Indications:Anemia complicating , third trimester (HCC) Given 05/14/2025 3:34 PM EDT 200 mg documented in this encounter Care Teams Basket Mender Relationship Specialty Start Date End Date Dallas Hopkins MD [address] [place] [address] PCP - General Family Medicine 05/23/24 Rachelle Mendez, CLIENT ENGAGEMENT MANAGER.BLOOD TESTER [address] [place] [address] Yarn Spooler Family Medicine 05/06/25 documented as of this encounter
--- OUTSIDE RECORDS SUMMARY | 2025-05-22 13:45 | XMS_ITS | Encounter Summary ---
Author Organization [facility] Address [facility] [place] [address] Care Team Providers Care Hand Shoes Sewer Name Role Phone Dallas Hopkins MD Primary Care Provider [phone] Rachelle Mendez APRN.BILLET GRINDER Unavailable [phone] Source Comments In the event this information is protected by the Federal Confidentiality of Alcohol and Drug AbusePatient Records regulations: The Federal rules restrict any use of the information to criminally investigate or prosecute any alcohol or drug abuse patient.[facility] Reason for Visit * Reason Comments Care 37.5 weeks Encounter Details Date Type Department Care Team (Late st Contact Info) Description 05/22/2025 1:45 PM EDT Routine Office Visit OB/Gynecology [facility] [place] [address] Milagro Ta APRN.[facility] [address] [facility] [address] Anemia complicating , third trimester (HCC) (Primary Dx); 37 weeks gestation of (HCC); Ulcerative colitis without complications, unspecified location (HCC); Vitamin B12 deficiency; Supervision of normal first , antepartum (HCC); Acute right-sided low back pain with left-sided sciatica Social History Tobacco Use Types Packs/Day Years [...] is lower risk 5 04/23/2025 Data from: https://www.neighborhoodatlas.medicine.[facility]/. Last address used for calculation [address] [...] Sign Reading Time Taken Comments Blood Pressure 111/77 05/22/2025 1:34 PM EDT Pulse 98 05/22/2025 1:34 PM EDT Temperature - - Respiratory Rate - - Oxygen Saturation - - Inhaled Oxygen Concentration - - Weight 96.3 kg (212 lb 4.9 oz) 05/22/2025 1:34 P M EDT Height - - Body Mass Index 32.28 05/08/2025 2:31 PM EDT documented in this encounter Miscellaneous Notes * Quick Notes - Milagro Ta APRN.CNM - 05/22/2025 1:48 PM EDT S: Caleb Sifuentes, 29 year old, is doing ok today, States +FM. Denies VB, LOF or contractions.Some cramping. Had to stop working as of yesterday, she has been working this past week but it is too much with the heat and sciatica and back pain. O: See flowsheet. MOUSTAPHA emilie ford. A: IUP @ 37.5 weeks; S=D Problem List Items Addressed This Visit Gastrointestinal Ulcerative colitis (HCC) Overview Diagnosed in 2019. No current medications, no symptoms. Has appt with GI physician in 01/23., pt canceled. Enc'd to reschedule. 28w growth scan: 55%tile 32w 60%tile 36w EFW 6#8oz/70%tile. Vitamin B12 deficiency Overview Improved on own. Hematology Anemia complicating , third trimester (HCC) - Primary Overview Both iron and B12>hematology consult ordered. B12 improved on own. Doing IV iron. 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 Supervision of normal first , antepartum (HCC) Overview Care Checklist : Vaccines: [] Flu vaccine [] declined [] RSV vaccine 32 0/7 - 36 6/7 (Jun - Nov) [] declined [] COVID vaccine [] declined [] TDaP 27-36 [x] declined First trimester: [x] Dating US [x] [...] Behavioral Health Screening Third trimester (28-30 weeks): [x] Consent [] Contraception [] Dental Laboratory Supervisor [] TeamBirth handout Third trimester (36-40 weeks): [x] GBS [] Presentation - [] Scheduled [] yes - Hibiclens, pre-op instructions, CBC, T&S ordered [] no [] H&P [] Preferences worksheet [] Scanned in EMR [] Patient to bring copy to hospital [] Declined Relevant Orders ROUTINE, GROUP B STREPTOCOCCUS BY PCR Musculoskeletal Acute right-sided low back pain with left-sided sciatica 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 Disability recommended around 36w. Pt worked until 37w4d. Disability to start 05/22/25. Other Visit Diagnoses 37 weeks gestation of ([facility]) Relevant Orders UA DIP OB, URINE (POC) ROUTINE, GROUP B STREPTOCOCCUS BY PCR P: Reviewed blood pressure/weight. GBS collected today. Labor s/sx, movement, and when to call rev'd. Will start disability as of today. Paperwork to be sent. Return to office in 1 week(s) and PRN. Milagro Ta APRN.CNM documented in this encounter Plan of Treatment Upcoming Encounters Date Type Department Care Team (Late st Contact Info) Description 05/28/2025 3:00 PM EDT Routine Office Visit OB/Gynecology [address] [place] [address] Isabel Kelsey APRN.BILLET GRINDER [address] [place] [address] 1 week OB 06/01/2025 2:30 PM EDT Routine Office Visit Maternal Medicine [facility] [address] [place] [address] trent growth 3wks from 8-1 per Yola Phelan RDSD instructions. patient is aware of new date,time and location kd 06/05/2025 1:45 PM EDT Routine Office Visit OB/Gynecology [address] [place] [address] Milagro Ta APRN.CNM [address] [facility] [address] 1 week OB 07/24/2025 2:00 PM EDT Visit (SP) Office Hematology/Oncolog y [address] [place] [address] Madelyn Phillips APRN.BILLET GRINDER [address] [place] [address] follow up Scheduled Orders Name Type Priority Associated Diagnoses Orde r Schedule UA DIP OB, URINE (POC) Lab Routine 37 weeks gestation of ([facility]) Ordered: 05/22/2025 documented as of this encounter Procedures Procedure Name Priority Date/Time Associated Diagnosis Comments ROUTINE, GROUP B STREPTOCOCCUS BY PCR Routine 05/22/2025 2:09 PM EDT 37 weeks gestation of (HCC) Supervision of normal first , antepartum ([facility]) UA DIP, URINE (POC) Routine 05/22/2025 1 :44 PM EDT documented in this encounter Results * ROUTINE, GROUP B STREPTOCOCCUS BY PCR (05/22/2025 2:09 PM EDT) Grp B Streptococcus DNA, Routine Not detected Not detected CEPHEID GENEXPERT COVID19 05/24/2025 1:15 AM EDT [facility] Swab POOLED SPECIMEN FROM VAGINAL INTROITUS AND RECTAL SWAB / Unknown Non Blood / Unknown 05/22/2025 2:09 PM EDT 05/22/2025 3:06 PM EDT Narrative [facility] - 05/24/2025 1:15 AM EDT This PCR is performed on a vaginal-rectal swab after culture enrichment. It is the most sensitive method for Group B Streptococcus screening. (Obstet Gynecol. 2020 PMID [id number]) Milagro Ta APRN.[facility] Fin al Result [facility] [address] [facility] [place] [address], * (ABNORMAL) UA DIP, URINE (POC) (05/22/2025 1:44 PM EDT) GLUCOSE UA (POCT) Negative Negative mg/dL [facility] BILIRUBIN UA (POCT) Negative Negative [facility] KETONE UA (POCT) Negative Negative mg/dL [facility] SPECIFIC GRAVITY UA (POCT) 1.025 1.005 - 1.030 [facility] HEMOGLOBIN/BLOOD UA (POCT) Negative Negative [facility] PH UA (POCT) 6.5 4.5 - 8.0 [facility] PROTEIN UA (POCT) Trace(A) Negative mg/dL [facility] UROBILINOGEN UA (POCT) 0.2 Normal E.U./dL [facility] NITRITE UA (POCT) Negative Negative [facility] LEUKOCYTES UA (POCT) Negative Negative [facility] COLOR UA (POCT) Yellow [facility] CLARITY UA (POCT) Clear [facility] 05/22/2025 1:[address] [facility] POINT OF CARE - 05/22/2025 1:44 PM EDT Location:[facility], [address] [place] [address], [facility] Provider POC TESTING Final Result [facility] POINT OF CARE [address] documented in this encounter Visit Diagnoses Diagnosis Anemia complicating , third trimester (HCC)- Primary 37 weeks gestation of (HCC) state, incidental Ulcerative colitis without complications, unspecified location (HCC) Vitamin B12 deficiency Other B-complex deficiencies Supervision of normal first , antepartum ([facility]) Acute right-sided low back pain with left-sided sciatica documented in this encounter Care Teams Hand Shoes Sewer Relationship Specialty Start Date End Date Dallas Hopkins MD [address] [place] [address] PCP - General Family Medicine 05/23/24 Rachelle Mendez, SILVERWARE ASSEMBLER.BILLET GRINDER [address] [place] [address] Puppet Engineer Family Medicine 05/06/25 documented as of this encounter
--- OUTSIDE RECORDS SUMMARY | 2025-05-26 06:24 | XMS_ITS | Patient Health Record ---
Author Organization [facility] [place] Address [address] [place] [address] Care Team Providers Care Drip Box Tender Name Role Phone None, Unknown or Primary [...]
--- OUTSIDE RECORDS SUMMARY | 2025-05-26 06:25 | XMS_ITS | Encounter Summary ---
Author Organization [facility] Address [address] [place] [address] Care Team Providers Care Hogshead Stripper Name Role Phone Dallas Hopkins MD Primary Care Provider [phone] Deonna Melgoza INTERNATIONAL EXCHANGE COORDINATOR.FIRST ASSISTANT MANAGER Unavailable Lela Post PA-C Unavailable [phone] Rachelle Mendez INTERNATIONAL EXCHANGE COORDINATOR.FIRST ASSISTANT MANAGER Unavailable + [phone] Source Comments In the event this information is protected by the Federal Confidentiality of Alcohol and Drug AbusePatient Records regulations: The Federal rules restrict any use of the information to criminally investigate or prosecute any alcohol or drug abuse patient.[facility] Encounter Details Date Type Department Care Team ([facility] Contact Info) Description 09/12/2024 [place] [address] Provider, [facility] Welcome to the [facility] Social History Tobacco Use Types [...] is lower risk 6 02/05/2024 Data from: https://www.neighborhoodatlas.medicine.[facility]/ . Last address used for calculation [address] [...] Office Visit OB/Gynecology [address] [place] [address] Isabel Kelsey, INTERNATIONAL EXCHANGE COORDINATOR.FIRST ASSISTANT MANAGER [address] [place] [address] 1 week OB 06/01/2025 2:30 PM EDT Routine Office Visit Maternal Medicine [facility] [address] [place] [address] trent growth 3wks from 8-1 per Yola Phelan [facility] instructions. patient is aware of new date,time and location kd 06/05/2025 1:45 PM EDT Routine Office Visit OB/Gynecology [address] [place] [address] Milagro Ta, INTERNATIONAL EXCHANGE COORDINATOR.CNM [address] [facility] [address] 1 week OB 07/24/2025 2:00 PM EDT Visit (SP) Office Hematology/Oncolog y [address] [place] [address] Madelyn Phillips INTERNATIONAL EXCHANGE COORDINATOR.FIRST ASSISTANT MANAGER [address] [place] [address] follow up documented as of this encounter Visit Diagnoses Not on filedocumented in this encounter Care Teams Hogshead Stripper Relationship Specialty Start Date End Date Dallas Hopkins MD [address] [place] [address] PCP - General Family Medicine 05/23/24 Deonna Melgoza, INTERNATIONAL EXCHANGE COORDINATOR.FIRST ASSISTANT MANAGER [address] [place] [address] Art Supervisor Family Medicine 09/15/24 04/19/25 Lela Post PA-C [address] [place] [address] Art Supervisor Internal Medicine 09/15/24 10/09/24 Rachelle Mendez, INTERNATIONAL EXCHANGE COORDINATOR.FIRST ASSISTANT MANAGER [address] [place] [address] Art Supervisor Family Medicine 05/06/25 documented as of this encounter
--- OUTSIDE RECORDS SUMMARY | 2025-05-26 06:25 | XMS_ITS | Clinical Summary ---
Author Organization [facility] Address [id number] [place] [address] Care Team Providers Care Plush Weaver Name Role Phone Jorge L Holguin MD Primary Care Provider [phone] Allergies Active Allergy Reactions Criticality Noted Date Comments No Known Drug Allergies 08/17/2016 Medications * This document contains information received from the source organization and may not represent a complete record from that organization. vit no.124/iron/folic ( VITAMIN ORAL) Take by mouth. Active acidophilus-pectin , citrus 25 million cell -100 mg tablet Take by mouth 3 (three) times a day with meals. Active ELDERBERRY FRUIT ORAL Take by mouth. Active HAIR, SKIN AND NAILS, BIOTIN, ORAL Take by mouth. Active amphetamine-dextro amphetamine XR (ADDERALL XR) 25 mg 24 hr capsuleIndications :Attention deficit hyperactivity disorder (ADHD), unspecified ADHD type Take 1 capsule (25 mg total) by mouth every morning. 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, sacral and sacrococcygeal r egion 09/19/2018 Chronic bilateral low back pain with bilateral s ciatica 04/20/2017 Resolved Problems Problem Noted Date Diagnosed Date Resolved Date Well woman exam with routine gynecological exam 10/04/2017 05/13/2018 Immunizations Immunization Administration Dates Next Due Tdap 06/01/2015 Family History Medical History Relation Name Comments Diabetes Mother Breast cancer Paternal Aunt 50's Prostate cancer Paternal Grandfather Hypertension Paternal Grandmother Colon cancer Neg Hx Ovarian cancer Neg Hx Pancreatic cancer Neg Hx Uterine cancer Neg Hx Relation Name Status Comments Mother Alive Paternal Aunt Paternal Grandfather Paternal Grandmother Alive Social History Tobacco Use Types Packs/Day Years Used Date Smoking Tobacco: Never Smokeless Tobacco: Never Tobacco Cessation:Counseling Given: Not Answered Alcohol Use Standard Drinks/Week Comments No 0 (1 standard drink = 0.6 oz pur e alcohol) PHQ-2 Answer Date Recorded Total Score 6 03/26/2023 Childcare Answer Date Recorded Childcare Unknown 03/14/2019 Employment Answer Date Recorded Employment Unknown 03/14/2019 Hunger Screening Answer Date Recorded Within the past 12 months we worried whether our food would run out before we got money to buy more. Never True 05/24/2023 Within the past 12 months th e food we bought just didn't last and we didn't have money to get more. Never True 05/24/2023 Purpose - Life Answer Date Recorded Purpose and direction in life Unknown Comments No Sex and Gender Information Value Date Recorded Sex Assigned at Female 03/27/2023 11:10 AM EDT Legal Sex Female 8:40 PM EDT Gender Identity Female 03/27/2023 11:10 AM EDT Sexual Orientation Straight 03/27/2023 11 :10 AM EDT Last Filed Vital Signs Vital Sign Reading Time Taken Comments Blood Pressure 124/72 06/22/2023 12:00 PM EDT Pulse 114 06/02/2019 2:48 PM EDT Temperature 36.8 C (98.2 F) 06/02/2019 2:48 PM EDT Respiratory Rate 16 12/27/2018 10:16 AM EDT Oxygen Saturation 99% 06/02/2019 2:48 PM EDT RA Inhaled Oxygen Concentration - - Weight 72.2 kg (159 lb 3.2 oz) 06/22/2023 12:00 PM EDT Height 175.3 cm (5' 9 ) 03/26/2023 2:28 PM EDT Body Mass Index 23.51 03/26/2023 2:28 PM EDT Plan of Treatment Health Maintenance Due Date Last Done Comments Colonoscopy 07/10/2021 07/10/2018 Depression Screening 03/26/2024 03/26/2023 Adult BMI Screening 06/22/2024 06/22/2023 Tobacco Screening 06/22/2024 06/22/2023 Pap Smear 02/07/2025 02/07/2022, 12/27/2018 DTaP,Tdap and Td Vaccines (7 - Td or Tdap) 06/01/2025 06/01/2015, 08/04/2009, 10/03/1995, Additional history exists Influenza Vaccine 06/08/2025 Medical Devices Not on file Procedures Procedure Name Priority Date/Time Associated Diagnosis Comments PAP SMEAR Routine 02/07/2022 10:36 AM EDT Cervical smear, as part of routine gynecological examination HM COLONOSCOPY WITH EGD Routine 07/10/2018 from Last 3 Months or Most Recently Relevant to Health Maintenance Results * Pap Smear (02/07/2022 10:36 AM EDT) 02/07/2022 10:3 6 AM EDT 02/08/2022 10:37 AM EDT Narrative [facility] - 02/10/2022 8:47 AM EDT [facility] [address] [place] [address] Gynecologic Cytology Consultation Patient Name:LAUREN SIFUENTES:1995 (Age: 26)Gender:FTaken:02/07/2022eported:02/10/2022hysician(s):TONYA REYES C.N.MHazel ([phone])Copy To: Rec. #:[id number]: #[id number] Final Cytologic Interpretation ThinPrep Pap Test (Cervical): Satisfactory for evaluation. A transformation zone component is present. NEGATIVE FOR INTRAEPITHELIAL LESION OR MALIGNANCY. jantonio/02/10/2022 Interpretation performed at [facility] [address], License number: [id number]. Electronically Signed Out By MAHAMED Basilio(ASCP) Date of Last Menstrual Period: (None Given) Other Clinical Conditions: Oral contraceptive Z01.419 Practice Performance Manager exam wo/abn findings Source of Specimen ThinPrep Pap Test (Cervical) Thin Prep Pap (CISTERN ROOM WORKING SUPERVISOR) Fee Code(s): G0145 us Tonya Reyes CLOTHER IN-[facility] PATHOLOGY/CYTOLOGY ORD ERABLES Final Result [facility] * COLONOSCOPY WITH EGD (07/10/2018) 07/10/2018 us Not In System Ref Prov HEALTH MAINTENANCE Final Result MANUALLY TRANSCRIBED RESULTS from Last 3 Months or Most Recently Relevant to Health Maintenance Insurance [employer] Care Teams Plush Weaver Relationship Specialty Start Date End Date Jorge L Holguin MD [address] [place] [address] PCP - General Family Medicine 06/15/23
--- OUTSIDE RECORDS SUMMARY | 2025-05-26 06:25 | XMS_ITS | Clinical Summary ---
Author Organization [facility] Address [address] [place] [id number] Care Team Providers Care Driller Hand Name Role Phone Dallas Hopkins MD Primary Care Provider [phone] Rachelle Mendez APRN.PURCHASER Unavailable [phone] Allergies No known active allergies Medications [id number]- w5-kow-syl-fish 4 mg iron- 0.5 mg-150 mg cap Take 1 Each by mouth once daily. 05/23/20 24 Active clotrimazole-be tamethasone (LOTRISONE) creamIndication s:Rash Apply 1 application to affected area two times a day for 7 days. 45 g 02/14/20 25 025 Discontinued ferrous sulfate 325 mg (65 mg iron) tabletIndicatio ns:Anemia complicating , third trimester (HCC),Other iron deficiency anemia Take 1 tablet by mouth once daily. With Vitamin C 30 tablet 04/22/20 25 025 Cyanocobalamin 1,000 mcg sublIndications :Anemia complicating , third trimester (HCC),Other vitamin B12 deficiency anemia Dissolve 1 tablet under the tongue once daily. 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 Disability recommended around 36w. Pt worked until 37w4d. Disability to start 05/22/25. Vitamin B12 deficiency 04/22/2025 Overview (05/22/2025): Improved on own. Anemia complicating , third trimester 0 03/23/2025 Overview (05/22/2025): Both iron and B12>hematology consult ordered. B12 improved on own. Doing IV iron. Assessment & Plan (04/02/2025 3:35 PM EDT): , GI problems, unspecified trimester Overview (05/08/2025): MFM consult done Supervision of normal first , antepartu m 12/12/2024 Overview (05/22/2025): Care Checklist : Vaccines: [] Flu vaccine [...] (28-30 weeks): [x] Consent [] Contraception [] Night Worker [] TeamBirth handout Third trimester (36-40 weeks): [x] GBS [] Presentation - [] Scheduled [] yes - Hibiclens, pre-op instructions, CBC, T&S ordered [] no [] H&P [] Preferences worksheet [] Scanned in EMR [] Patient to bring copy to hospital [] Declined Assessment & Plan (01/09/2025 3:34 PM EDT): Ulcerative colitis Overview (05/22/2025): Diagnosed in 2019. No current medications, no symptoms. Has appt with GI physician in 01/23., pt canceled. Enc'd to reschedule. 28w growth scan: 55%tile 32w 60%tile 36w EFW 6#8oz/70%tile. ADHD (attention deficit hyperactivity disorder) Estimated Date of Delivery Comme nts Yes 06/07/2025 Based on Ultraso und Resolved Problems Problem Noted Date Diagnosed Date Resolved Date Retained products of concept ion after miscarriage 08/23/2023 08/23/2023 Encounters Date Type Department Care Team Description 05/22/2025 1:45 PM EDT Routine Office Visit OB/Gynecology [address] [place] [address] Milagro Ta, LEANNA.CNM Anemia complicating , third trimester (HCC) (Primary Dx); 37 weeks gestation of (HCC); Ulcerative colitis without complications, unspecified location (HCC); Vitamin B12 deficiency; Supervision of normal first , antepartum (HCC); Acute right-sided low back pain with left-sided sciatica 05/14/2025 3:15 PM EDT Infusion Center Hematology/Oncology [address] [place] [address] [place] [address] Anemia complicating , third trimester (HCC) (Primary Dx) 05/12/2025 3:15 PM EDT Infusion Center Hematology/Oncology [address] [place] [address] [place] [address] Anemia complicating , third trimester (HCC) (Primary Dx) 05/08/2025 2:45 PM EDT Routine Office Visit OB/Gynecology [address] [place] [address] Milagro Ta, MANAGER SPEECH.CNM Anemia complicating , third trimester (HCC) (Primary Dx); 35 weeks gestation of (HCC); care, subsequent in third trimester (HCC); Other ulcerative colitis without complication (HCC); , GI problems, unspecified trimester (HCC); Vitamin B12 deficiency; Supervision of normal first , antepartum (HCC); Acute right-sided low back pain with left-sided sciatica 05/08/2025 11:00 AM EDT Routine Office Visit Maternal Medicine [address] [place] [address] Supervision of high risk in third trimester (HCC) (Primary Dx); Ulcerative colitis without complications, unspecified location (HCC); , GI problems, unspecified trimester (HCC); Obesity affecting , antepartum, third trimester (HCC) 05/08/2025 9:30 AM EDT Infusion Center Hematology/Oncology [address] [place] [address] [place] [address] Anemia complicating , third trimester (HCC) (Primary Dx) 05/08/2025 Orders Only Hematology/Oncology [address] [place] [address] [place] [address] Madelyn Phillips, MANAGER SPEECH.PURCHASER Anemia complicating , third trimester (HCC) 05/06/2025 3:15 PM EDT Infusion Center Hematology/Oncology [address] [place] [address] [place] [address] Anemia complicating , third trimester (HCC) (Primary Dx) 05/06/2025 Travel 05/04/2025 2:30 PM EDT Infusion Center Hematology/Oncology [address] [place] [address] [place] [address] Anemia complicating , third trimester (HCC) (Primary Dx) 04/27/2025 Orders Only Hematology/Oncology [address] [place] [address] Madelyn Phillips, MANAGER SPEECH.PURCHASER 04/27/2025 Results Follow-Up Hematology/Oncology [address] [place] [address] Madelyn Phillips, MANAGER SPEECH.PURCHASER 04/24/2025 Patient Msg HOSP MAIN H060 [address] [place] [address] Provider, Ccf Sign up to manage your digestive symptoms in between visits, covered by insurance 04/23/2025 5:20 PM EDT Routine Office Visit OB/Gynecology [facility] [address] [place] [address] Zhao Biggs MD care, subsequent in third trimester (HCC) (Primary Dx); Anemia complicating , third trimester (HCC); 33 weeks gestation of (HCC) 04/23/2025 2:45 PM EDT Routine Office Visit OB/Gynecology [address] [place] [address] Isabel Kelsey APRN.CNP 33 weeks gestation of (HCC) (Primary Dx); Lightheaded; Dizziness 04/23/2025 Patient Msg OB/Gynecology [address] [place] [address] Isabel Kelsey APRN.CNP cardiology 04/23/2025 Get Medical Advice OB/Gynecology [address] [place] [address] Isabel Kelsey APRN.PURCHASER Paperwork 04/22/2025 11:20 AM EDT [facility] Hematology/Oncology [address] [place] [address] Clinic, Virtual Anemia Anemia complicating , third trimester (HCC); Other iron deficiency anemia; Other vitamin B12 deficiency anemia 04/20/2025 Get Medical Advice OB/Gynecology [address] [place] [address] Milagro Ta APRN.CNQi Consistent cramps 04/17/2025 1:00 PM EDT Routine Office Visit Obstetrics/Gynecolo gy [address] [facility] [address] [place] [address] Inge Garland MD care, subsequent in third trimester (HCC) (Primary Dx) 04/16/2025 3:30 PM EDT Routine Office Visit Maternal Medicine [address] [facility] [address] [place] [address] Supervision of high risk in third trimester (HCC) (Primary Dx); Ulcerative colitis without complications, unspecified location (HCC); Obesity affecting , antepartum, third trimester (HCC) 04/08/2025 [place] [address] [place] [address] Letty Ashton APRN.CNM 04/08/2025 Get Medical Advice OB/Gynecology [address] [place] [address] Milagro Ta APRN.CNM Swelling 04/02/2025 3:15 PM EDT Routine Office Visit OB/Gynecology [address] [place] [address] Isabel Kelsey APRN.PURCHASER Anemia complicating , third trimester (HCC) (Primary Dx); 30 weeks gestation of (HCC); Supervision of normal first , antepartum (HCC) 04/02/2025 Travel 03/21/2025 Results Follow-Up [facility] Provider OB [address] [place] [address] Milagro Ta APRN.CNM 03/20/2025 2:45 PM EDT Routine Office Visit OB/Gynecology [address] [place] [address] Milagro Ta APRN.CNM , GI problems, unspecified trimester (HCC) (Primary Dx); Other ulcerative colitis without complication (HCC); 28 weeks gestation of (HCC); Encounter for supervision of normal first in second trimester (HCC); Supervision of normal first , antepartum (HCC) 03/19/2025 2:30 PM EDT Routine Office Visit Maternal Medicine [address] [address] , GI problems, unspecified trimester (HCC) (Primary Dx); Ulcerative colitis without complications, unspecified location (HCC); 28 weeks gestation of (HCC) 03/05/2025 Get Medical Advice OB/Gynecology [address] [place] [address] Milagro Ta APRN.CNM Blood pressure reading 02/25/2025 Get Medical Advice OB/Gynecology [address] [place] [address] Milagro Ta APRN.CNM Sharp sudden pains near vagina from Last 3 Months Immunizations Immunization Administration [...] is lower risk 5 04/23/2025 Data from: https://www.neighborhoodatlas.medicine.[facility].edu/. Last address used for calculation 930 [...] Pulse 98 05/22/2025 1:34 PM EDT Temperature 36.6 C (97.9 F) 05/14/2025 3:21 PM EDT Respiratory Rate 18 05/14/2025 3:21 PM EDT Oxygen Saturation 98% 05/14/2025 3:21 PM EDT Inhaled Oxygen Concentration - - Weight 96.3 kg (212 lb 4.9 oz) 05/22/2025 1:34 P M EDT Height 172.7 cm (5' 8 ) 05/08/2025 2:31 PM EDT Body Mass Index 32.28 05/08/2025 2:31 PM EDT Plan of Treatment Upcoming Encounters Date Type Department Care Team (Late st Contact Info) Description 05/28/2025 3:00 PM EDT Routine Office Visit OB/Gynecology [address] [place] [address] Isabel Kelsey, MANAGER SPEECH.PURCHASER [address] [facility] [place] [address] 1 week OB 06/01/2025 2:30 PM EDT Routine Office Visit Maternal Medicine [facility] [address] [place] [address] trent growth 3wks from 8-1 per Yola Phelan [facility] instructions. patient is aware of new date,time and location kd 06/05/2025 1:45 PM EDT Routine Office Visit OB/Gynecology [address] [place] [address] Milagro Ta, MANAGER SPEECH.CNM [address] [facility] [address] 1 week OB 07/24/2025 2:00 PM EDT Visit (SP) Office Hematology/Oncolog y [address] [place] [address] Madelyn Phillips, LEANNA.PURCHASER [address] [place] [address] follow up Health Maintenance Due Date Last Done Comments Cervical Cancer Screening 2014 HPV Vaccine (1 - 3-dose SCDM series) 2020 Anxiety Screening 05/23/2025 05/23/2024 Depression Screening 05/23/2025 05/23/2024 Influenza Vaccine (#1) 2025 DTaP,Tdap,Td Vaccine (8 - Td or Tdap) 05/23/2034 05/23/2024, 06/01/2015, 08/04/2009, Additional history exists Hepatitis B Vaccine Completed 02/08/2010, 11/09/2009, 08/04/2009 HIV Screening Completed 10/14/2024 Hepatitis C Screening Completed 10/14/2024 RSV Vaccine (No Doses Required) Completed Procedures Procedure Name Priority Date/Time Associated Diagnosis Comments ROUTINE, GROUP B STREPTOCOCCUS BY PCR Routine 05/22/2025 2:09 PM EDT 37 weeks gestation of ([facility]) Supervision of normal first , antepartum ([facility]) UA DIP, URINE (POC) Routine 05/22/2025 1 :44 PM EDT OBSTETRIC ULTRASOUND WHI Routine 05/08/2025 11:28 AM EDT Ulcerative colitis without complications, unspecified location ([facility]) , GI problems, unspecified trimester ([facility]) GLUCOSE, BLOOD (POC) Routine 04/23/2025 2:07 PM EDT PARIETAL CELL AB SCN Routine 04/23/2025 12:04 PM EDT Anemia complicating , third trimester (HCC) Other iron deficiency anemia Other vitamin B12 deficiency anemia INTRINSIC FACTOR BLOCKING AB Routine 04/23/2025 12:04 PM EDT Anemia complicating , third trimester (HCC) Other iron deficiency anemia Other vitamin B12 deficiency anemia METHYLMALONIC ACID Routine 04/23/2025 12 :04 PM EDT Anemia complicating , third trimester (HCC) Other iron deficiency anemia Other vitamin B12 deficiency anemia RETIC COUNT Routine 04/23/2025 12:04 PM EDT Anemia complicating , third trimester (HCC) Other iron deficiency anemia Other vitamin B12 deficiency anemia HAPTOGLOBIN BLD Routine 04/23/2025 12:04 PM EDT Anemia complicating , third trimester (HCC) Other iron deficiency anemia Other vitamin B12 deficiency anemia LD LACTATE DEHYDRO Routine 04/23/2025 12 :04 PM EDT Anemia complicating , third trimester (HCC) Other iron deficiency anemia Other vitamin B12 deficiency anemia FOLATE SERUM Routine 04/23/2025 12:04 PM EDT Anemia complicating , third trimester (HCC) Other iron deficiency anemia Other vitamin B12 deficiency anemia VITAMIN B12 BLOOD Routine 04/23/2025 12: 04 PM EDT Anemia complicating , third trimester (HCC) Other iron deficiency anemia Other vitamin B12 deficiency anemia FERRITIN BLD Routine 04/23/2025 12:04 PM EDT Anemia complicating , third trimester (HCC) Other iron deficiency anemia Other vitamin B12 deficiency anemia IRON + TIBC Routine 04/23/2025 12:04 PM EDT Anemia complicating , third trimester (HCC) Other iron deficiency anemia Other vitamin B12 deficiency anemia CBC + DIFF Routine 04/23/2025 12:04 PM EDT Anemia complicating , third trimester (HCC) Other iron deficiency anemia Other vitamin B12 deficiency anemia CBC + DIFF Routine 04/16/2025 4:49 PM EDT Ulcerative colitis without complications, unspecified location (HCC) COMPREHENSIVE METABOLIC PANEL Routine 04/16/2025 4:49 PM EDT Ulcerative colitis without complications, unspecified location (HCC) BILE ACIDS FRACT BLD Routine 04/16/2025 4:49 PM EDT OBSTETRIC ULTRASOUND WHI Routine 04/16/2025 4:08 PM EDT Ulcerative colitis without complications, unspecified location (HCC) UA DIP, URINE (POC) Routine 04/02/2025 3 :23 PM EDT FERRITIN BLD Routine 03/20/2025 4:06 PM EDT 23 weeks gestation of ([facility]) Supervision of normal first , antepartum ([facility]) IRON + TIBC Routine 03/20/2025 4:06 PM EDT 23 weeks gestation of ([facility]) Supervision of normal first , antepartum ([facility]) EXTRA TUBE MARCIA Routine 03/20/2025 4:06 PM EDT 23 weeks gestation of ([facility]) Supervision of normal first , antepartum ([facility]) CBC + DIFF Routine 03/20/2025 4:06 PM EDT 23 weeks gestation of ([facility]) Supervision of normal first , antepartum ([facility]) ANEMIA REFLEX PANEL Routine 03/20/2025 4 :06 PM EDT 23 weeks gestation of ([facility]) Supervision of normal first , antepartum ([facility]) SYPHILIS TREPONEMAL W/REFLEX Routine 03/20/2025 4:06 PM EDT 23 weeks gestation of ([facility]) Supervision of normal first , antepartum ([facility]) GEST GLUC SCREEN, 1-HR, 50 GM, NON-FASTING Routine 03/20/2025 4:06 PM EDT 23 weeks gestation of ([facility]) Screening for diabetes mellitus Supervision of normal first , antepartum ([facility]) C-REACTIVE PROTEIN (CRP) Routine 03/20/2025 4:06 PM [...] Recently Relevant to Health Maintenance Results * ROUTINE, GROUP B STREPTOCOCCUS BY PCR (05/22/2025 2:09 PM EDT) Grp B Streptococcus DNA, Routine Not detected Not detected [facility] [employer] COVID19 05/24/2025 1:15 AM EDT [facility] Swab POOLED SPECIMEN FROM VAGINAL INTROITUS AND RECTAL SWAB / Unknown Non Blood / Unknown 05/22/2025 2:09 PM EDT 05/22/2025 3:06 PM EDT Narrative [facility] - 05/24/2025 1:15 AM EDT This PCR is performed on a vaginal-rectal swab after culture enrichment. It is the most sensitive method for Group B Streptococcus screening. (Obstet Gynecol. 2020 PMID [id number]) Milagro Ta APRN.CNM MICROBIOLOGY Fin al Result [facility] [address] [place] [address], * (ABNORMAL) UA DIP, URINE (POC) (05/22/2025 1:44 PM EDT) Only the most recent of3 resultswithin the time period is included. GLUCOSE [...] [facility] COLOR UA (POCT) Yellow [facility] CLARITY UA (POCT) Clear [facility] 05/22/2025 1:44 PM EDT Narrative [facility] - 05/22/2025 1:44 PM EDT Location:[facility], [address] [place] [address], [facility] us Ccf Provider POC TESTING Final Result Performing Organization Address City/State/[facility] Co de Phone Number [address] * OBSTETRIC ULTRASOUND WHI (05/08/2025 11:28 AM EDT) Anatomical Region Laterality Modality Other 05/08/2025 11:2 8 AM EDT Narrative 05/08/2025 11:59 AM EDT Indication Evaluation of growth, Ulcerative colitis Impression - Single, live, intrauterine . - presentation is cephalic. - The biometry is consistent with the assigned gestational dating. - The EFW is 2937 g, at the 70%. AC is at the 90%. - The amniotic fluid volume is normal amount with an MVP of 6.7 cm and an KENZIE of 12.4 cm. - The placenta is anterior, fundal. - BPP 05/15. - No malformations visualized on a limited survey as detailed below. Ultrasound Consultation The patient reported she is being evaluated for cholestasis. Her bile acids were normal 04/16/25. Recommendations - repeat bile acids - weekly BPPs if dx with cholestasis Maternal Assessment Height 173 cm Height (ft) 5 ft Height (in) 8 in Physical Exam Initial weight (lb) 173 lb Initial BMI 26.30 kg/m Method Transabdominal ultrasound examination Gonzalez . Number of fetuses: 1 Dating LMP on: 08/31/2024 GA by LMP 35 w + 5 d PAPITO by LMP: 06/07/2025 GA by prior assessment 35 w + 5 d PAPITO by prior assessment: 06/07/2025 Ultrasound examination on: 05/08/2025 GA by U/S based upon: AC, BPD, Femur, HC GA by U/S 36 w + 3 d PAPITO by U/S: 06/02/2025 Assigned: based on the LMP, selected on 12/05/2024 Assigned GA 35 w + 5 d Assigned PAPITO: 06/07/2025 General Evaluation Cardiac activity present. FHR 132 bpm. movements: present. Presentation: cephalic Placenta: Placental site: anterior, fundal Umbilical cord: Cord vessels: 3 vessel cord Amniotic fluid: Amount of AF: normal amount. MVP 6.7 cm. KENZIE 12.4 cm. Q1 6.7 cm, Q2 2.8 cm, Q3 2.9 cm, Q4 0.0 cm Biophysical Profile 2: breathing movements 2: [...] 68% 294 74% 62.4 54% 2146 60% 05/08/2025 35w 5d 92.2 93% 326.2 58% 331.7 90% 68.2 57% 2937 70% Biometry Standard BPD 92.2 mm 37w 3d 93% Hadlock OFD 112.1 mm 34w 1d 39% Nicolaides HC 326.2 mm 36w 2d 58% Betty AC 331.7 mm 37w 1d 90% Hadlock Femur 68.2 mm 34w 5d 57% Betty EFW 2,937 g 36w 4d 70% Hadlock EFW (lb) 6 lb EFW (oz) 8 oz EFW by: Hadlock (HC-AC-FL) Extended Boat Deckhand 5.2 mm Extremities / Bony Struc FL / HC 0.21 Other Structures FHR 132 bpm Anatomy Lateral ventricles: normal Cavum septi pellucidi: normal Cerebellum: normal Cisterna magna: normal 4-chamber view: normal RVOT view: normal LVOT view: suboptimally visualized 3-vessel view: normal Heart / Thorax Situs: situs solitus (normal) Diaphragm: suboptimally visualized Stomach: normal Kidneys: normal Bladder: normal Performed By: Sonia Chicas RDMS Read By: Rizwana Arboleda MD Nikki Pierre MD [facility] Final Result * (ABNORMAL) GLUCOSE, BLOOD (POC) (04/23/2025 2:07 PM EDT) [facility] Glucose, Point of Care 133(A) 74 - 99 mg/dL [facility] Comment: Location:[facility], [address] [place] [address], [facility] The Accu-Chek Inform II glucose meter has not been approved for testing on patients receiving intensive medical intervention or therapy and results from this point of care glucose test should not be used for patient management decisions in these cases. Inaccurate results may also occur from other interfering factors, such as N-acetylcysteine (blood concentrations of greater than 5mg/dL), galactose, extremes of hematocrit (<10 or >65), or high doses of ascorbic acid (vitamin C) greater than 3mg/dL. Consider alternate testing mechanisms (e.g. core lab, blood gas instrument) in the above situations. 04/23/2025 2:07 PM EDT us Ccf Provider POC TESTING Final Result [facility] POINT OF CARE [address] * INTRINSIC FACTOR BLOCKING AB (04/23/2025 12:04 PM EDT) Pathologist [facility] Intrinsic Factor Blocking Antibody Negative Negative 04/26/2025 10:17 PM EDT [employer] Comment: Performed By: [facility] [address] [place] [address] Diesel Pile Hammer Operator: Robel Elkins MD, PhD CLIA Number: [id number] Blood BLOOD SPECIMEN / Unknown Venipuncture / Unknown 04/23/2025 12:04 PM EDT 04/23/2025 12:05 PM EDT Madelyn Phillips APRN.PURCHASER LABORATORY Final Re sult [email or web address] [facility] [address] [place] [address] * LACTATE DEHYDROGENASE (04/23/2025 12:04 PM EDT) [facility] LD 145 135 - 214 U/L 04/24/2025 12:02 AM EDT [facility] Blood BLOOD SPECIMEN / Unknown Venipuncture / Unknown 04/23/2025 12:04 PM EDT 04/23/2025 12:05 PM EDT Madelyn Phillips APRN.PURCHASER LABORATORY Final Re sult Performing Organization Address City/[facility]/ZIP Co de Phone Number [facility] [address] [id number], [place] * VITAMIN B12 (04/23/2025 12:04 PM EDT) Only the most recent of2 resultswithin the time period is included. Pathologist [facility] Vitamin B12 458 232 - 1,245 pg/mL 04/24/2025 12:21 AM EDT [facility] Blood BLOOD SPECIMEN / Unknown Venipuncture / Unknown 04/23/2025 12:04 PM EDT 04/23/2025 12:05 PM EDT Madelyn Phillips APRN.PURCHASER LABORATORY Final Re sult [facility] [address] [id number], [place] * (ABNORMAL) RETICULOCYTE COUNT (04/23/2025 12:04 PM EDT) Pathologist [facility] Retic % 2.3(H) 0.4 - 2.0 % 04/23/2025 7:26 PM EDT [facility] Abs Retic 0.096 0.018 - 0.100 M/uL 04/23/2025 7:26 PM EDT [facility] Blood BLOOD SPECIMEN / Unknown Venipuncture / Unknown 04/23/2025 12:04 PM EDT 04/23/2025 12:05 PM EDT Madelyn Phillips APRN.CNP LABORATORY Final Re sult Performing Organization Address [facility] Co de Phone Number [facility] [address] [place] [address], [place] * GASTRIC PARIETAL CELL IGG SERUM (04/23/2025 12:04 PM EDT) [facility] Gastric Parietal Cell IgG Qualitative Negative Negative 04/28/2025 1:08 PM EDT [facility] Comment:Anti-parietal cell a ntibody test is used as an aid in diagnosis of autoimmune gastritis. Clinical correlation is required. Gastric Parietal Cell IgG Quantitative 2.1 <=20.0 Units 04/28/2025 1:08 PM EDT [facility] Blood BLOOD SPECIMEN / Unknown Venipuncture / Unknown 04/23/2025 12:04 PM EDT 04/23/2025 12:05 PM EDT Madelyn Phillips APRN.PURCHASER LABORATORY Final Re sult Performing Organization Address City/[facility]/ZIP Co de Phone Number [facility] [address] [phone], [place] * METHYLMALONIC ACID (04/23/2025 12:04 PM EDT) [facility] Methylmalonic Acid 0.11 <=0.40 umol/L 04/27/2025 3:15 PM EDT [facility] Comment:This test was eddie ped, and its performance characteristics determined by the [facility] Department of Pathology and Laboratory Medicine. It has not been cleared or approved by the FDA. The [facility] Department of Pathology and Laboratory Medicine is regulated under CLIA as qualified to perform high- complexity testing. This test is used for clinical purposes. It should not be regarded as investigational or for research. Blood BLOOD SPECIMEN / Unknown Venipuncture / Unknown 04/23/2025 12:04 PM EDT 04/23/2025 12:05 PM EDT Madelyn Phillips APRN.[facility] LABORATORY Final Re sult Performing Organization Address [facility] Co de Phone Number [facility] [address] [place], [place] [id number], [place] * (ABNORMAL) IRON AND TIBC (04/23/2025 12:04 PM EDT) Only the most recent of2 resultswithin the time period is included. Iron 31(L) 41 - 186 ug/dL 04/24/2025 12:08 AM EDT [facility] TIBC >531(H) 232 - 386 ug/dL 04/24/2025 12:08 AM EDT [facility] Transferrin Saturation <5.8(L) 15.0 - 57.0 % 04/24/2025 12:08 AM EDT [facility] Blood BLOOD SPECIMEN / Unknown Venipuncture / Unknown 04/23/2025 12:04 PM EDT 04/23/2025 12:05 PM EDT Madelyn Phillips APRN.[facility] LABORATORY Final Re sult Performing Organization Address [facility] Co de Phone Number [facility] [address] [place], [place] [id number], [place] * HAPTOGLOBIN (04/23/2025 12:04 PM EDT) Haptoglobin 122 31 - 238 mg/dL 04/24/2025 12:08 AM EDT [facility] Blood BLOOD SPECIMEN / Unknown Venipuncture / Unknown 04/23/2025 12:04 PM EDT 04/23/2025 12:05 PM EDT Madelyn Phillips APRN.[facility] LABORATORY Final Re sult Performing Organization Address City/[facility]/ZIP Co de Phone Number [facility] [place] [address], [place] * FOLATE, SERUM (04/23/2025 12:04 PM EDT) [facility] Folate >20.0 >4.7 ng/mL 04/24/2025 12:21 AM EDT [facility] Comment: A result of > 20 ng/mL is not necessarily indicative of a pathologic or treatable condition: it reflects a limitation of the test methodology. Assay reference range: 4.8 to 24.2 ng/mL. Suitable for detection of folate deficiency. Reference: Folate III (Folate III) [package insert V 1.0 Wolof]. [facility], [place], [place]: August 2015. Blood BLOOD SPECIMEN / Unknown Venipuncture / Unknown 04/23/2025 12:04 PM EDT 04/23/2025 12:05 PM EDT Madelyn Phillips APRN.[facility] LAB[facility]AT[facility] Final Re sult Performing Organization Address City/[facility]/ZIP Co de Phone Number [facility] [address] [place], [place] [id number], [place] * (ABNORMAL) FERRITIN (04/23/2025 12:04 PM EDT) Only the most recent of2 resultswithin the time period is included. Pathologist [facility] Ferritin 9.4(L) 14.7 - 205.1 ng/mL 04/24/2025 12:15 AM EDT [facility] Blood BLOOD SPECIMEN / Unknown Venipuncture / Unknown 04/23/2025 12:04 PM EDT 04/23/2025 12:05 PM EDT us Madelyn Alan MANAGER SPEECH.[facility] Final Re sult [facility] [address] [facility] [address] [place] [address], [place] * (ABNORMAL) COMPLETE BLOOD COUNT AND DIFFERENTIAL (04/23/2025 12:04 PM EDT) Only the most recent of3 resultswithin the time period is included. WBC 11.62(H) 3.70 - 11.00 k/uL 04/23/2025 7:26 PM EDT [facility] RBC 4.18 3.90 - 5.20 m/uL 04/23/2025 7:26 PM EDT [facility] Hemoglobin 10.4(L) 11.5 - 15.5 g/dL 04/23/2025 7:26 PM EDT [facility] Hematocrit 33.7(L) 36.0 - 46.0 % 04/23/2025 7:26 PM EDT [facility] MCV 80.6 80.0 - 100.0 fL 04/23/2025 7:26 PM EDT [facility] MCH 24.9(L) 26.0 - 34.0 pg 04/23/2025 7:26 PM EDT [facility] MCHC 30.9 30.5 - 36.0 g/dL 04/23/2025 7:26 PM EDT [facility] RDW-CV 14.6 11.5 - 15.0 % 04/23/2025 7:26 PM EDT [facility] Platelet Count 281 150 - 400 k/uL 04/23/2025 7:26 PM EDT [facility] MPV 11.3 9.0 - 12.7 fL 04/23/2025 7:26 PM EDT [facility] Neutrophils % 68.7 % 04/23/2025 7:26 PM EDT [facility] Abs Neut 8.00(H) 1.45 - 7.50 k/uL 04/23/2025 7:26 PM EDT [facility] Lymphocytes % 22.5 % 04/23/2025 7:26 PM EDT [facility] Abs Lymph 2.61 1.00 - 4.00 k/uL 04/23/2025 7:26 PM EDT [facility] Monocytes % 7.1 % 04/23/2025 7:26 PM EDT [facility] Abs Searcy 0.82 <0.87 k/uL 04/23/2025 7:26 PM EDT [facility] Eosinophils % 0.5 % 04/23/2025 7:26 PM EDT [facility] Abs Eosin 0.06 <0.46 k/uL 04/23/2025 7:26 PM EDT [facility] Basophils % 0.3 % 04/23/2025 7:26 PM EDT [facility] Abs Baso 0.03 <0.11 k/uL 04/23/2025 7:26 PM EDT [facility] Immature Granulocytes % 0.9 % 04/23/2025 7:26 PM EDT [facility] Abs Immature Gran 0.10(H) <0.10 k/uL 04/23/2025 7:26 PM EDT [facility] NRBC 0.0 /100 WBC 04/23/2025 7:26 PM EDT [facility] Absolute nRBC <0.01 <0.01 k/uL 04/23/2025 7:26 PM EDT [facility] Diff Type Auto 04/23/2025 7:26 PM EDT [facility] Blood BLOOD SPECIMEN / Unknown Venipuncture / Unknown 04/23/2025 12:04 PM EDT 04/23/2025 12:05 PM EDT us Madelyn Phillips MANAGER SPEECH.[facility] Final Re sult [facility] [address] [place] [address], [place] * (ABNORMAL) COMPREHENSIVE METABOLIC PANEL (04/16/2025 4:49 PM EDT) Only the most recent of2 resultswithin the time period is included. [facility] Protein, Total 6.8 6.3 - 8.0 g/dL 04/16/2025 5:28 PM [facility] Albumin 3.8(L) 3.9 - 4.9 g/dL 04/16/2025 5:28 PM [facility] Calcium, Total 9.0 8.5 - 10.2 mg/dL 04/16/2025 5:28 PM [facility] Bilirubin, Total 0.2 0.2 - 1.3 mg/dL 04/16/2025 5:28 PM [facility] Alkaline Phosphatase 97 34 - 123 U/L 04/16/2025 5:28 PM [facility] AST 12(L) 13 - 35 U/L 04/16/2025 5:28 PM [facility] ALT 9 7 - 38 U/L 04/16/2025 5:28 PM [facility] Glucose 85 74 - 99 mg/dL 04/16/2025 5:28 PM [facility] Comment: The [place] Diabetes Association (ADA) provides guidance for cutoff [...] Standards of Medical Care in Diabetes 2016, [place] Diabetes Association. Diabetes Care. 2016.39(Suppl 1). BUN 5(L) 7 - 21 mg/dL 04/16/2025 5:28 PM [facility] Creatinine 0.50(L) 0.58 - 0.96 mg/dL 04/16/2025 5:28 PM [facility] Sodium 136 136 - 144 mmol/L 04/16/2025 5:28 PM [facility] Potassium 3.9 3.7 - 5.1 mmol/L 04/16/2025 5:28 PM EDT [facility] Chloride 102 98 - 107 mmol/L 04/16/2025 5:28 PM EDT [facility] CO2 22 22 - 30 mmol/L 04/16/2025 5:28 PM EDT [facility] Anion Gap 12 8 - 15 mmol/L 04/16/2025 5:28 PM EDT [facility] Estimated Glomerular Filtration Rate 129 >=60 mL/min/1. 73m 04/16/2025 5:28 PM EDT [facility] Comment:Estimated Glomerular Filtration Rate (eGFR) is [...] Rizwana Arboleda DO LABORATORY Final Res ult [facility] [address] [place] [address], * BILE ACIDS FRACT BLD (04/16/2025 4:49 PM EDT) Ursodeoxycholic Acid 0.7 0.0 - 1.0 umol/L 04/23/2025 12:44 PM EDT [facility] Cholic Acid 0.9 0.0 - 1.9 umol/L 04/23/2025 12:44 PM EDT [facility] Deoxycholic Acid 0.3 0.0 - 2.5 umol/L 04/23/2025 12:44 PM EDT [facility] Chenodeoxycholic Acid 1.9 0.0 - 3.4 umol/L 04/23/2025 12:44 PM EDT [facility] Total Bile Acids 3.8 0.0 - 7.0 umol/L 04/23/2025 12:44 PM EDT [facility] Comment: INTERPRETIVE INFORMATION: Bile Acids, Fractionated and Total This test was developed and its performance characteristics determined by [facility]. It has not been cleared or approved by the [place] Food and Drug Administration. This test was performed in a CLIA certified laboratory and is intended for clinical purposes. Performed By: [facility] [address] [place] [address] Diesel Pile Hammer Operator: Robel Elkins MD, PhD CLIA Number: [id number] Blood BLOOD SPECIMEN / Unknown Venipuncture / Unknown 04/16/2025 4:49 PM EDT 04/16/2025 4:49 PM EDT Rizwana Arboleda DO LABORATORY Final Res ult [facility] [address] [place] [address] * OBSTETRIC ULTRASOUND WHI (04/16/2025 4:08 PM [...] The placenta is anterior, fundal. - BPP 8/8. - No malformations visualized on a limited [...] Method Transabdominal ultrasound examination. View: Adequate visualization Gonazlez . Number of fetuses: 1 Dating LMP [...] 12 oz EFW by: Hadlock (HC-AC-FL) Extended Boat Deckhand 5.2 mm Extremities / Bony Struc FL [...] Read By: Rizwana Arboleda MD Milagro Ta APRN.[facility] Fin al Result * EXTRA TUBE MARCIA (03/20/2025 4:06 PM EDT) Blood BLOOD SPECIMEN / Unknown Venipuncture / Unknown 03/20/2025 4:06 PM EDT 03/20/2025 4:07 PM EDT Milagro Ta APRN.[facility] Fin al Result [facility] [address] [place] [address], * SYPHILIS TREPONEMAL W/REFLEX (03/20/2025 4:06 PM EDT) Syphilis Treponemal Screen Nonreactive Nonreactive 03/21/2025 10:29 AM EDT [facility] Syphilis Interpretation Cannot exclude recent Treponemal infection if specimen collected within 7-10 days after appearance of suspect lesions or 2-3 weeks after an exposure. Clinical correlation is required. 03/21/2025 10:29 AM EDT [facility] Blood BLOOD SPECIMEN / Unknown Venipuncture / Unknown 03/20/2025 4:06 PM EDT 03/20/2025 4:07 PM EDT Milagro Ta MANAGER SPEECH.CN LABORATORY Fin al Result [facility] [address] [place] [address], [place] * GESTATIONAL GLUCOSE SCREEN, 1-HOUR, 50 GRAM, NON-FASTING (03/20/2025 4:06 PM EDT) Glucose Scrn, Preg 87 74 - 134 mg/dL 03/20/2025 4:37 PM EDT [facility] Comment:[place] Congress of Obstetricians and Gynecologists (Arellano/Bree) guidelines state a gestational diabetes mellitus positive screen is made, in women not previously diagnosed with overt diabetes, when the 1 hr plasma glucose level is equal to or above 140 mg/dL. The [facility] Medical Asst and Women's Health Elizabeth recommends a 135 mg/dL cutoff. Blood BLOOD SPECIMEN / Unknown Venipuncture / Unknown 03/20/2025 4:06 PM EDT 03/20/2025 4:07 PM EDT us Milagro Ta APRN.CNM LABORATORY Fin al Result [facility] [address] [place] [address], [place] * C-REACTIVE PROTEIN (03/20/2025 4:06 PM EDT) CRP 0.4 <0.9 mg/dL 03/20/2025 4:32 PM EDT [facility] Blood BLOOD SPECIMEN / Unknown Venipuncture / Unknown 03/20/2025 4:06 PM EDT 03/20/2025 4:07 PM EDT us Grecia Wise MD, PhD LABORATORY Final Result [facility] [address] [place] [address], [place] * OBSTETRIC ULTRASOUND WHI (03/19/2025 2:29 [...] 15 oz EFW by: Hadlock (HC-AC-FL) Extended Boat Deckhand 3.2 mm Extremities / Bony Struc FL [...] length 39.7 mm Performed By: Rhonda Mendoza RDNY Read By: Nikki Pierre MD Milagro Ta MANAGER SPEECH.[facility] al Result * HIV 1/2 COMBO WITH REFLEX TO DIFFERENTIATION (10/14/2024 2:32 PM EST) HIV 12 Combo (Ag/Ab) Nonreactive Nonreactive 10/15/2024 11:30 AM EST [facility] HIV-1/2 AB (Confirmatory) 10/15/2024 11:30 AM EST [facility] Comment:Test not indicated. HIV Interpretation 10/15/2024 11:30 AM EST [facility] Comment: No evidence of HIV-1 or HIV-2 infection. Should recent infection be suspected, repeat testing may be considered 2-3 weeks after this draw. [place] Rev. Code 3701.243(E): This information has been [...] LABORATORY Final Resul t Performing Organization Address [facility] Co de Phone Number [facility] [address] [place] [address] * HEPATITIS C ANTIBODY IA WITH CONFIRMATION (10/14/2024 2:32 PM EST) Hep C Antibody IA Negative Negative 10/15/2024 11:10 AM EST [facility] Comment:The result suggests no evidence of active infection with Hepatitis C virus. Should recent infection be suspected, repeat testing may be considered 4-6 weeks after this draw. Blood BLOOD SPECIMEN / Unknown Venipuncture / Unknown 10/14/2024 2:32 PM EST 10/14/2024 2:33 PM EST Robert Vincent MD LABORATORY Final Resul t Performing Organization Address [facility] de Phone Number [facility] [address] [place] [address] from Last 3 Months or Most Recently Relevant to Health Maintenance Insurance [facility] PPO Care Teams Driller Hand Relationship Specialty Start Date End Date Dallas Hopkins MD [address] [place] [address] PCP - General Family Medicine 05/23/24 Rachelle Mendez APRN.[facility] [address] [place] [address] Automation Architect Family Medicine 05/06/25
--- OUTSIDE RECORDS SUMMARY | 2025-05-26 06:25 | XMS_ITS | Encounter Summary ---
Author Organization [facility] Address [address] [place] [address] Care Team Providers Care Coremaking Machine Setter Name Role Phone Dallas Hopkins MD Primary Care Provider [phone] Rachelle Mendez APRN.SILK SPREADER Unavailable [phone] Source Comments In the event this information is protected by the Federal Confidentiality of Alcohol and Drug AbusePatient Records regulations: The Federal rules restrict any use of the information to criminally investigate or prosecute any alcohol or drug abuse patient.[facility] Encounter Details Date Type Department Care Team (Late st Contact Info) Description 04/27/2025 Results Follow-Up Hematology/Oncology [address] [place] [id number] Madelyn Phillips APRN.SILK SPREADER [address] [place] [address] Social History Tobacco Use Types Packs/Day Years [...] is lower risk 5 04/23/2025 Data from: https://www.neighborhoodatlas.medicine.[facility]/. Last address used for calculation [...] Routine Office Visit OB/Gynecology [address] [place] [address] Isabel Kelsey, SUBCONTRACT ADMINISTRATOR.SILK SPREADER [address] [place] [address] 1 week OB 06/01/2025 2:30 PM EDT Routine Office Visit Maternal Medicine [facility] [address] [place] [address] trent growth 3wks from 8-1 per Yola Phelan [facility] instructions. patient is aware of new date,time and location kd 06/05/2025 1:45 PM EDT Routine Office Visit OB/Gynecology [address] [place] [address] Milagro Ta, SUBCONTRACT ADMINISTRATOR.CNM [address] [facility] [address] 1 week OB 07/24/2025 2:00 PM EDT Visit (SP) Office Hematology/Oncolog y [address] [place] [address] Madelyn Phillips APRN.SILK SPREADER [address] [place] [address] follow up documented as of this encounter Visit Diagnoses Not on filedocumented in this encounter Care Teams Coremaking Machine Setter Relationship Specialty Start Date End Date Dallas Hopkins MD [address] [place] [address] PCP - General Family Medicine 05/23/24 Rachelle Mendez APRN.SILK SPREADER [address] [place] [address] Inspecting And Testing Lead Hand Family Medicine 05/06/25 documented as of this encounter
--- OUTSIDE RECORDS SUMMARY | 2025-05-26 06:25 | XMS_ITS | Encounter Summary ---
Author Organization [facility] Address [address] [facility] [place] [address] Care Team Providers Care Manager Book Name Role Phone Jorge L Holguin MD Primary Care Provider [phone] Encounter Details Date Type Department Care Team (Late st Contact Info) Description 08/28/2023 Abstract [facility] [address] [place] [phone] Renae Brown MD [address] [facility] [address] [place] [address] Social History Tobacco Use Types Packs/Day Years [...] filedocumented in this encounter Care Teams Manager Book Relationship Specialty Start Date End Date Jorge L Holguin MD [address] [place] [address] PCP - General Family Medicine 07/16/23 documented as of this encounter
--- OUTSIDE RECORDS SUMMARY | 2025-05-26 06:25 | XMS_ITS | Encounter Summary ---
Author Organization [facility] Address [address] [facility] [place] [address] Care Team Providers Care Instructional Media Services Technician Name Role Phone Jorge L Holguin MD Primary Care Provider [phone] Encounter Details Date Type Department Care Team (Late st Contact Info) Description 08/14/2023 Abstract [facility] [address] [place] [phone] Renae Brown MD [address] [facility] [address] [place] [address] Social History Tobacco Use Types Packs/Day Years [...] on filedocumented in this encounter Care Teams Instructional Media Services Technician Relationship Specialty Start Date End Date Jorge L Holguin MD [address] [place] [address] PCP - General Family Medicine 07/16/23 documented as of this encounter
--- OUTSIDE RECORDS SUMMARY | 2025-05-26 06:25 | XMS_ITS | Encounter Summary ---
Author Organization [facility] Address [facility] [place] [address] Care Team Providers Care Supervisor Slitting And Shipping Name Role Phone Dallas Hopkins MD Primary Care Provider [phone] Deonna Melgoza BACTERIOLOGIST DAIRY.COMBAT SYSTEMS OPERATOR Unavailable Lela Post PA-C Unavailable [phone] Rachelle Mendez BACTERIOLOGIST DAIRY.COMBAT SYSTEMS OPERATOR Unavailable + [phone] Source Comments In the event this information is protected by the Federal Confidentiality of Alcohol and Drug AbusePatient Records regulations: The Federal rules restrict any use of the information to criminally investigate or prosecute any alcohol or drug abuse patient.[facility] Encounter Details Date Type Department Care Team (Late st Contact Info) Description 06/23/2024 Patient Msg [facility] [address] [place], [place] [id number] Provider, Ccf Colonoscopy Family Nurse Practitioner Enrollment Social History Tobacco Use Types Packs/Day [...] is lower risk 6 02/05/2024 Data from: https://www.neighborhoodatlas.medicine.[facility].edu/ . Last address used for calculation [...] Office Visit OB/Gynecology [address] [place] [address] Isabel Kelsey BACTERIOLOGIST DAIRY.COMBAT SYSTEMS OPERATOR [address] [place] [address] 1 week OB 06/01/2025 2:30 PM EDT Routine Office Visit Maternal Medicine [facility] [address] [place] [address] trent growth 3wks from 8-1 per Yola Phelan [facility] instructions. patient is aware of new date,time and location kd 06/05/2025 1:45 PM EDT Routine Office Visit OB/Gynecology [address] [place] [address] Milagro Ta, LEANNA.CNM [address] [facility] [address] 1 week OB 07/24/2025 2:00 PM EDT Visit (SP) Office Hematology/Oncolog y [address] [place] [address] Madelyn Phillips APRN.COMBAT SYSTEMS OPERATOR [address] [place] [address] follow up documented as of this encounter Visit Diagnoses Not on filedocumented in this encounter Care Teams Supervisor Slitting And Shipping Relationship Specialty Start Date End Date Dallas Hopkins MD [address] [place] [address] PCP - General Family Medicine 05/23/24 Deonna Melgoza, BACTERIOLOGIST DAIRY.COMBAT SYSTEMS OPERATOR [address] [place] [address] Financial Assistance Specialist Family Medicine 09/15/24 04/19/25 Lela Post PA-C [address] [place] [address] Financial Assistance Specialist Internal Medicine 09/15/24 10/09/24 Rachelle Mendez, BACTERIOLOGIST DAIRY.COMBAT SYSTEMS OPERATOR [address] [place] [address] Financial Assistance Specialist Family Medicine 05/06/25 documented as of this encounter
--- OUTSIDE RECORDS SUMMARY | 2025-05-26 06:25 | XMS_ITS | Clinical Summary ---
Author Organization [facility] Address [address] [facility], [address] [place] [address] Care Team Providers Care Dispatcher Maintenance Service Name Role Phone Jorge L Holguin MD Primary Care Provider [phone] Allergies No known active allergies Medications amphetamine-dextro amphetamine (ADDERALL XR) 15 MG extended release capsuleIndications :Attention deficit hyperactivity disorder (ADHD), combined type Take 1 capsule by mouth every morning for 30 days. 30 capsule 9 Active BLISOVI FE 10/27 1-20 MG-MCG per tablet 1 Active naproxen (NAPROSYN) 500 MG tablet Take 1 tablet by mouth 2 times daily (with meals) for 5 days 10 tablet 2 Active Active Problems Problem Noted Date Diagnosed Date Chronic right-sided thoracic back pain 9 Carpal tunnel syndrome of right wrist 07/28/2019 Elevated liver enzymes 07/28/2019 Marijuana use 07/28/2019 Chronic fatigue 07/28/2019 Attention deficit hyperactiv ity disorder (ADHD), combined type 11/22/2018 Mild major depression 11/22/2018 Maria 11/08/2018 Other congenital malformatio ns of spine, not associated with scoliosis 09/19/2018 Spinal enthesopathy, sacral and sacrococcygeal r egion 09/19/2018 Ulcerative rectosigmoiditis with rectal bleeding 08/15/2018 Chronic midline low back pain with left-sided sc iatica 04/20/2017 Anxiety 04/19/2017 Comments Yes Immunizations Immunization Administration Dates Next Due TDaP, ADACEL (age 10y-64y), BOOSTRIX (age 10y+), IM, 0.5mL 06/01/2015 Family History Medical History Relation Name Comments Diabetes Mother Relation Name Status Comments Mother Alive Social History Tobacco Use Types Packs/Day Years Used Date Smoking Tobacco: Never Smokeless Tobacco: Never Tobacco Cessation:Counseling Given: Not Answered Alcohol Use Standard Drinks/Week Comments Never 0 (1 standard drink = 0.6 oz pur e alcohol) AUDIT-C Answer Date Recorded Frequency of Alcohol Consumption Never 07/28/2019 Average Number of Drinks Not on file 019 Frequency of Binge Drinking Not on file 07/09 PHQ-2 Answer Date Recorded PHQ-2 Score 0 07/28/2019 Interpersonal Safety Domain Source: IP Abuse Scr eening Answer Date Recorded Physical abuse Denies 11/26/2024 Verbal abuse Denies 11/26/2024 Emotional abuse Denies 11/26/2024 Financial abuse Denies 11/26/2024 Sexual abuse Denies 11/26/2024 Comments Yes Sex and Gender Information Value Date Recorded Sex Assigned at Not on file Legal Sex Female 5:00 PM EST Gender Identity Not on file Sexual Orientation Not on file Last Filed Vital Signs Vital Sign Reading Time Taken Comments Blood Pressure 98/59 11/26/2024 1:58 PM EST Pulse 103 11/26/2024 1:58 PM EST Temperature 37 C (98.6 F) 11/26/2024 1:58 PM EST Respiratory Rate 14 11/26/2024 1:58 PM EST Oxygen Saturation 97% 11/26/2024 1:58 PM EST Inhaled Oxygen Concentration - - Weight 61.2 kg (135 lb) 08/24/2022 2:34 AM EST Height 170.2 cm (5' 7 ) 11/26/2024 9:45 AM EST Body Mass Index 19.94 08/24/2022 2:34 AM EST Plan of Treatment Health Maintenance Due Date Last Done Comments Depression Monitoring 2005 HIV screen 2008 Hepatitis A vaccine (2 of 2 - 2-dose series) 05/09/2010 11/09/2009 Hepatitis C screen 2011 Pap smear 2014 Cervical cancer screen 2023 HPV (without or with Pap) 2023 COVID-19 Vaccine () 06/08/2024 Flu vaccine (#1) 05/08/2025 DTaP/Tdap/Td vaccine (8 - Td or Tdap) 05/23/2034 05/23/2024, 06/01/2015, 08/04/2009, Additional history exists Respiratory Syncytial Virus (RSV) or age 60 yrs+ (1 - 1-dose 75+ series) 2068 Hib vaccine Aged Out 03/29/1994, 12/08, 1993 No longer eligible based on patient's age to complete this topic Polio vaccine Completed 08/04/2009, 09/08, 01/04/1994, Additional history exists Meningococcal (ACWY) vaccine Completed 11/09/2009 Hepatitis B vaccine Completed 02/08/2010, 11/09/2009, 08/04/2009 Varicella vaccine Completed 02/08/2010, 11/09/2009 HPV vaccine (No Doses Required) Completed Meningococcal B vaccine Aged Out No l onger eligible based on patient's age to complete this topic Pneumococcal 0-49 years Vaccine Aged Out No longer eligible based on patient's age to complete this topic Insurance [employer] Care Teams Dispatcher Maintenance Service Relationship Specialty Start Date End Date Jorge L Holguin MD [address] [place] [address] PCP - General Family Medicine 08/24/22
--- OUTSIDE RECORDS SUMMARY | 2025-05-26 06:25 | XMS_ITS | Encounter Summary ---
Author Organization [facility] Address [address] [place] [address] Care Team Providers Care Cooler Worker Name Role Phone Jorge L Holguin MD Primary Care Provider [phone] Encounter Details Date Type Department Care Team (Late st Contact Info) Description 11/01/2023 Orders Only [facility] [address] [facility] [address] [place] [phone] Renae Brown MD [address] [facility] [address] [place] [address] Social History Tobacco Use Types Packs/Day Years [...] on filedocumented in this encounter Care Teams Cooler Worker Relationship Specialty Start Date End Date Jorge L Holguin MD [address] [place] [address] PCP - General Family Medicine 07/16/23 documented as of this encounter
--- OUTSIDE RECORDS SUMMARY | 2025-05-26 06:25 | XMS_ITS | Encounter Summary ---
Author Organization [facility] Address [address] [place] [address] Care Team Providers Care Surgery Assistant Name Role Phone Dallas Hopkins MD Primary Care Provider [phone] Rachelle Mendez APRN.TRANSPORTATION CONSULTANT Unavailable [phone] Source Comments In the event this information is protected by the Federal Confidentiality of Alcohol and Drug AbusePatient Records regulations: The Federal rules restrict any use of the information to criminally investigate or prosecute any alcohol or drug abuse patient.[facility] Encounter Details Date Type Department Care Team (Late st Contact Info) Description 04/24/2025 Patient Msg HOSP MAIN H060 [address] [place] [address] Provider, Ccf Sign up to manage your digestive symptoms in between visits, covered by insurance Social History Tobacco Use Types Packs/Day Years [...] is lower risk 5 04/23/2025 Data from: https://www.neighborhoodatlas.medicine.[facility].edu/. Last address used for calculation [address] 04/23/2025 Estimated Date of Delivery Comme nts [...] Routine Office Visit OB/Gynecology [address] [place] [address] Isabel Kelsey, DIETICIAN.TRANSPORTATION CONSULTANT [address] [place] [address] 1 week OB 06/01/2025 2:30 PM EDT Routine Office Visit Maternal Medicine [facility] [address] [place] [address] trent growth 3wks from 8-1 per Yola Phelan [facility] instructions. patient is aware of new date,time and location kd 06/05/2025 1:45 PM EDT Routine Office Visit OB/Gynecology [address] [facility] [place] [address] Milagro Ta, DIETICIAN.CNM [address] [facility] [address] 1 week OB 07/24/2025 2:00 PM EDT Visit (SP) Office Hematology/Oncolog y [address] [place] [address] Madelyn Phillips, DIETICIAN.TRANSPORTATION CONSULTANT [address] [place] [address] follow up documented as of this encounter Visit Diagnoses Not on filedocumented in this encounter Care Teams Surgery Assistant Relationship Specialty Start Date End Date Dallas Hopkins MD [address] [place] [address] PCP - General Family Medicine 05/23/24 Rachelle Mendez, LEANNA.TRANSPORTATION CONSULTANT [address] [place] [address] Mechanical Technical Service Specialist Family Medicine 05/06/25 documented as of this encounter
--- OUTSIDE RECORDS SUMMARY | 2025-05-26 06:25 | XMS_ITS | Encounter Summary ---
Author Organization [facility] Address [address] [facility] [place] [address] Care Team Providers Care Director Of National Sales Name Role Phone Jorge L Holguin MD Primary Care Provider [phone]- [phone] Encounter Details Date Type Department Care Team (Late st Contact Info) Description 08/20/2023 Abstract [facility] [address] [place] [address] Renae Brown MD [address] [facility] [address] [place] [address] Social History Tobacco Use Types Packs/Day Years [...] on filedocumented in this encounter Care Teams Director Of National Sales Relationship Specialty Start Date End Date Jorge L Holguin MD [address] [place] [address] PCP - General Family Medicine 07/16/23 documented as of this encounter
--- OUTSIDE RECORDS SUMMARY | 2025-05-26 06:25 | XMS_ITS | Encounter Summary ---
Author Organization [facility] Address [address] [facility] [place] [address] Care Team Providers Care Opticianry Teacher Name Role Phone Jorge L Holguin MD Primary Care Provider [phone]- [phone] Encounter Details Date Type Department Care Team (Late st Contact Info) Description 08/18/2023 External Result Encounter [facility] External Department Unsolicited Renae Brown MD [address] [place] [address] Social History Tobacco Use Types Packs/Day Years [...] Atiya Valdes M.D.08/18/2023 10:27 AM Dictation Location: [place] [address] Tech: Sejal Oliver Transcribed By: ANSHU 08/18/23 1027 Dictated By: Atiya Valdes MD 08/18/23 1022 Signed By: <Electronically signed by MD Atiya Valdes in OV> 08/18/23 1027 Narrative 08/21/2023 8:17 AM EST [facility] Main [place] [id number] Ultrasound Report Signed Patient: Caleb Sifuentes MR#: [id number] : 1995 Acct:[id number] Age/Sex: 28 / F ADM Date: 08/17/23 Loc: 3S Room: [address] [place] [address] Type: REG CLI Attending Dr: Renae Brown [...] transvaginal Procedure Note Radiology, Radiologist, - 08/21/2023 [facility] Main [place] [id number] Ultrasound Report Signed Patient: Caleb Sifuentes BMR#: [id number] : 1995Acct:[id number] Age/Sex: 28 / FADM Date: 08/17/23 Loc: 3S Room: [id number]: REG CLI Attending Dr: Renae Brown MD [...] Atiya Valdes M.D.08/18/2023 10:27 AM Dictation Location: [place] [address] Tech: Sejal Oliver Transcribed By: [facility] 08/18/23 1027 Dictated By: Atiya Valdes MD 08/18/23 1022 Signed By: <Electronically signed by MD Atiya Valdes in OV> 08/18/23 1027 us Renae Brown MD IMG US PROCEDURES Final Result documented in this encounter Visit Diagnoses Not on filedocumented in this encounter Care Teams Opticianry Teacher Relationship Specialty Start Date End Date Jorge L Holguin MD [address] [place] [address] PCP - General Family Medicine 07/16/23 documented as of this encounter
--- OUTSIDE RECORDS SUMMARY | 2025-05-26 06:25 | XMS_ITS | Encounter Summary ---
Author Organization [facility] Address [facility] [place] [address] Care Team Providers Care Digital Solutions Architect Name Role Phone Dallas Hopkins MD Primary Care Provider [phone] Deonna Melgoza CLEAN OUT DRILLER.FUEL TECHNICIAN Unavailable Rachelle Mendez CLEAN OUT DRILLER.FUEL TECHNICIAN Unavailable + [phone] Source Comments In the event this information is protected by the Federal Confidentiality of Alcohol and Drug AbusePatient Records regulations: The Federal rules restrict any use of the information to criminally investigate or prosecute any alcohol or drug abuse patient.[facility] Reason for Referral * Consult, Test, Treat (Routine) - Closed Specialty Diagnoses / Procedures Referred By Contac t Referred To Contact Hematology Diagnoses Anemia complicating , third trimester (HCC) 29 weeks gestation of (HCC) Other iron deficiency anemia Other vitamin B12 deficiency anemia Procedures OFFICE/OUTPATIENT [facility] 60 MINUTES Milagro Ta APRN.CNM [address] [facility] [address] Phone: tel: fax: Referral ID Status Reason Start Date Expiration Date V isits Requested Visits Authorized [id number] Closed PCP Requested Referral 03/23/2025 03/23/2026 1 1 Encounter Details Date Type Department Care Team (Late st Contact Info) Description 03/21/2025 [place] [address] [place] [address] Milagro Ta APRN.CNM [address] [place] [address] Social History Tobacco Use Types Packs/Day Years [...] is lower risk 5 04/23/2025 Data from: https://www.neighborhoodatlas.medicine.[facility].edu/. Last address used for calculation [address] [...] Routine Office Visit OB/Gynecology [address] [place] [address] Fog, Isabel Simon APRN.FUEL TECHNICIAN [address] [facility] [place] [address] 1 week OB 06/01/2025 2:30 PM EDT Routine Office Visit Maternal Medicine [facility] [address] [place] [address] trent growth 3wks from 8-1 per Yola Phelan [facility] instructions. patient is aware of new date,time and location kd 06/05/2025 1:45 PM EDT Routine Office Visit OB/Gynecology [address] [place] [address] Milagro Ta, CLEAN OUT DRILLER.CN [address] [facility] [address] 1 week OB 07/24/2025 2:00 PM EDT Visit (SP) Office Hematology/Oncolog y [address] [place] [address] Madelyn Phillips, CLEAN OUT DRILLER.FUEL TECHNICIAN [address] [place] [address] follow up Scheduled Referrals Name Type Priority Associated Diagnoses Orde r Schedule CONSULT TO HEMATOLOGY Referral Routine Anemia complicating , third trimester (HCC) 29 weeks gestation of (HCC) Other iron deficiency anemia Other vitamin B12 deficiency anemia 1 Occurrences starting 03/23/2025 until 03/23/2026 documented as of this encounter Visit Diagnoses Diagnosis Anemia complicating , third trimester (HCC)- Primary 29 weeks gestation of (HCC) state, incidental Other iron deficiency anemia Other vitamin B12 deficiency anemia documented in this encounter Care Teams Digital Solutions Architect Relationship Specialty Start Date End Date Dallas Hopkins MD [address] [place] [address] PCP - General Family Medicine 05/23/24 Deonna Melgoza, CLEAN OUT DRILLER.FUEL TECHNICIAN [address] [facility] [place] [address] Admitting Clerk Family Medicine 09/15/24 04/19/25 Rachelle Mendez APRN.[facility] [address] [place] [id number] Admitting Clerk Family Medicine 05/06/25 documented as of this encounter
--- OUTSIDE RECORDS SUMMARY | 2025-05-26 06:25 | XMS_ITS | Encounter Summary ---
Author Organization [facility] Address [address] [facility] [place] [place] [address] Care Team Providers Care Market Research Intern Name Role Phone Jorge L Holguin MD Primary Care Provider +1- [phone] Encounter Details Date Type Department Care Team (Late st Contact Info) Description 08/18/2023 External Result Encounter NOMS External Department Unsolicited Renae Brown MD [address] [place] [address] Social History Tobacco Use Types Packs/Day Years [...] Name Priority Date/Time Associated Diagnosis Comments US RENAL COMPLETE 08/18/2023 10: 18 AM EST documented in this encounter Results * US renal complete (08/18/2023 10:18 AM EST) Anatomical Region Laterality Modality Kidney Ultrasound 08/18/2023 10:1 8 AM EST Impressions 08/21/2023 8:17 AM EST NO OBSTRUCTIVE UROPATHY. Impression dictated by: Atiya Valdes M.D.08/18/2023 10:22 AM Dictation Location: [place] [address] Tech: Sejal Oliver Transcribed By: ANSHU 08/18/23 1022 Dictated By: Atiya Valdes MD 08/18/23 1018 Signed By: <Electronically signed by MD Atiya Valdes in OV> 08/18/23 1022 Narrative 08/21/2023 8:17 AM EST [facility] [place] [address] Ultrasound Report Signed Patient: Caleb Sifuentes MR#: [id number] : 1995 Acct:[id number] Age/Sex: 28 / F ADM Date: 08/17/23 Loc: 3S Room: [address] [place] [address] Type: REG CLI Attending Dr: Renae Brown MD Ordering Provider: JÚNIOR Peralta Date of Service: 08/18/23 US/US renal BI: jets---CVAT Copies to: JÚNIOR Peralta BILATERAL RENAL AND BLADDER ULTRASOUND CLINICAL HISTORY: Costovertebral angle tenderness COMPARISON: None Estimation of renal size is approximately 11.2 cm on the right and 11.7 cm on the left. No shadowing calculi or hydronephrosis are identified. No renal mass lesions were imaged. There is no perinephric fluid. The urinary bladder is partially distended with a volume of 45 mL. No contour or intraluminal abnormalities are seen. Bilateral ureteral jets are seen. US/US renal BI Procedure Note Radiology, Radiologist, MD - 08/21/2023 [facility] Main [place] [id number] Ultrasound Report Signed Patient: Caleb Sifuentes BMR#: [id number] : 1995Acct:[id number] Age/Sex: 28 / FADM Date: 08/17/23 Loc: 3S Room: [id number]: REG CLI Attending Dr: Renae Brown MD Ordering Provider: JÚNIOR Peralta Date of Service: 08/18/23 US/US renal BI: jets---CVAT Copies to: Renae Brown MD-[facility] BILATERAL RENAL AND BLADDER ULTRASOUND CLINICAL HISTORY: Costovertebral angle tenderness COMPARISON: None Estimation of renal size is approximately 11.2 cm on the right and 11.7 cmon the left. No shadowing calculi or hydronephrosis are identified. No renal mass lesions wereimaged. There is no perinephric fluid. The urinary bladder is partially distended with a volume of 45 mL. Nocontour or intraluminal abnormalities are seen. Bilateral ureteral jets are seen. US/US renal BI IMPRESSION: NO OBSTRUCTIVE UROPATHY. Impression dictated by: Atiya Valdes M.D.08/18/2023 10:22 AM Dictation Location: [place] [address] Tech: Sejal Oliver Transcribed By: [facility] 08/18/23 1022 Dictated By: Atiya Valdes MD 08/18/23 1018 Signed By: <Electronically signed by MD Atiya Valdes in OV> 08/18/23 1022 us Renae Brown MD IMG US PROCEDURES Final Result documented in this encounter Visit Diagnoses Not on filedocumented in this encounter Care Teams Market Research Intern Relationship Specialty Start Date End Date Jorge L Holguin MD [address] [place] [address] PCP - General Family Medicine 07/16/23 documented as of this encounter
--- OUTSIDE RECORDS SUMMARY | 2025-05-26 06:25 | XMS_ITS | Encounter Summary ---
Author Organization [facility] Address [id number] [address] [place] [address] Care Team Providers Care Comic Book Artist Name Role Phone Jorge L Holguin MD Primary Care Provider +1- [phone] Reason for Visit * Reason Comments Med Refill Encounter Details Date Type Department Care Team ([facility] st Contact Info) Description 12/05/2018 Refill [facility] [address] [place] [address] Selina Webster, SONAR WATCHSTANDER-CHIPPER FEEDER [address] [place] [address] Maria ([facility] Social History Tobacco Use Types Packs/Day Years Used Date Smoking Tobacco: Never Smokeless Tobacco: Never Alcohol Use Standard Drinks/Week Comments No 0 (1 standard drink = 0.6 oz pur e alcohol) Comments No Sex and Gender Information Value Date Recorded Sex Assigned at Female 03/27/2023 11:10 AM EDT Legal Sex Female 8:40 PM EDT Gender Identity Female 03/27/2023 11:10 AM EDT Sexual Orientation Straight 03/27/2023 11 :10 AM EDT documented as of this encounter Miscellaneous Notes * Telephone Encounter - Yanique Patterson LPN - 12/05/2018 6:30 AM EST Call placed to patient to clarify if she requested a refill of Lamictal, since refill request was sent from [facility]. Patient stated that she did not request and she had plenty of medication left. She is asking about increasing her dose. Last weekend she states that she was extremely mean towards her boyfriend, and this is not like her. I did advise that she has an appointment next Sunday (12/13). Yanique Patterson LPN 12/05/18 1130 documented in this encounter Plan of Treatment Not on file documented as of this encounter Visit Diagnoses Diagnosis Maria ([facility]) Bipolar I disorder, single manic episode, unspecified documented in this encounter Care Teams Comic Book Artist Relationship Specialty Start Date End Date Jorge L Holguin MD [address] [place] [address] PCP - General Family Medicine 06/15/23 documented as of this encounter
--- OUTSIDE RECORDS SUMMARY | 2025-05-26 06:25 | XMS_ITS | Encounter Summary ---
Author Organization [facility] Address [address] [place] [place] [address] Care Team Providers Care Professor Of Law Name Role Phone Jorge L Holguin MD Primary Care Provider +1- [phone] Encounter Details Date Type Department Care Team (Late st Contact Info) Description 08/20/2023 Orders Only [facility] [address] [place] [address] Renae Brown MD [address] [place] [address] Blighted ovum ([facility]) (Primary Dx) Social History Tobacco Use Types [...] conception documented in this encounter Care Teams Professor Of Law Relationship Specialty Start Date End Date Jorge L Holguin MD [address] [place] [address] PCP - General Family Medicine 07/16/23 documented as of this encounter
--- OUTSIDE RECORDS SUMMARY | 2025-05-26 06:25 | XMS_ITS | Encounter Summary ---
Author Organization [facility] Address [address] [facility] [place] [address] Care Team Providers Care Immigration Manager Name Role Phone Jorge L Holguin MD Primary Care Provider +1- [phone] Encounter Details Date Type Department Care Team (Late st Contact Info) Description 08/17/2023 Abstract [facility] [address] [place] [address] Renae Brown MD [address] [facility] [address] [place] [address] Social History Tobacco Use Types Packs/Day Years [...] on filedocumented in this encounter Care Teams Immigration Manager Relationship Specialty Start Date End Date Jorge L Holguin MD [address] [place] [address] PCP - General Family Medicine 07/16/23 documented as of this encounter
--- OUTSIDE RECORDS SUMMARY | 2025-05-26 06:25 | XMS_ITS | Clinical Summary ---
Author Organization [facility] Address [address] [facility] [place] [address] Care Team Providers Care Middleware Engineer Name Role Phone Jorge L Holguin MD Primary Care Provider +1- [phone] Allergies No known active allergies Medications amphetamine-dext roamphetamine XR (Adderall XR) 25 MG 24 hr capsule Take 25 mg by mouth in the morning. Do not crush or chew.. Active Active Problems Problem Noted Date Diagnosed Date Attention deficit hyperactiv ity disorder (ADHD), combined type 11/22/2018 Encounters Date Type Department Care Team Description 04/22/2025 Clinisync Result Encounter [facility] External Department Unsolicited Mehdi Velasquez, 04/09/2025 Clinisync Result Encounter [facility]S External Department Unsolicited Mehdi Velasquez DO 04/08/2025 Clinisync Result Encounter NOMS External Department Unsolicited Mehdi Velasquez, DO from Last 3 Months Family History [...] Procedure Name Priority Date/Time Associated Diagnosis Comments [facility] UA (CLEAN/CATCH) CHEMISTRY FACULTY MEMBER/MICRO IF IND. Routine 04/22/2025 7:30 AM EDT US OB BPP W NON-STRESS 04/09/2025 8:09 AM EDT US OB PLACENTA 04/08/2025 10:32 PM EDT from Last 3 Months Results * [facility]H UA (CLEAN/CATCH) CHEMISTRY FACULTY MEMBER/MICRO IF IND. (04/22/2025 7:30 AM EDT) COLOR URINE LT. YELLOW YELLOW TBH CLARITY URINE CLEAR CLEAR TBH SPECIFIC GRAVITY URINE 1.010 1.005 - 1.025 TBH PH URINE 7.5 5.0 - 9.0 TBH PROTEIN URINE NEGATIVE NEG/TRACE mg/dL TBH GLUCOSE URINE UA NEGATIVE NEGATIVE mg/dL TBH BILIRUBIN URINE NEGATIVE NEGATIVE TBH KETONES URINE NEGATIVE NEGATIVE mg/dL TBH BLOOD URINE NEGATIVE NEGATIVE TBH NITRITE URINE NEGATIVE NEGATIVE TBH UROBILINOGEN URINE 0.2 0.2 - 1.0 EU/dL TBH LEUKOCYTE ESTERASE URINE NEGATIVE NEGATIVE TBH URINE MICROSCOPIC INDICATED NO TBH 04/22/2025 7:30 AM EDT 04/22/2025 8:09 AM EDT Narrative [facility] - 04/22/2025 8:18 AM EDT us Mehdi Velasquez DO [facility] Final Result [facility] * US OB BPP W NON-STRESS (04/09/2025 8:09 AM EDT) Anatomical Region Laterality Modality Other 04/09/2025 8:09 AM EDT Narrative 04/09/2025 8:12 [place] [address] Ultrasound Report Signed Patient: LAUREN SIFUENTES MR#: [id number] : 1995 Acct:[id number] Age/Sex: 29 / F ADM Date: Loc: [facility] 250- Attending Dr: Mehdi Velasquez D.O. Ordering Physician: Mehdi Velasquez D.O. Date of Service: 04/08/25 Procedure(s): US OB BPP w non-stress Accession Number(s): [id number] cc: Mehdi Velasquez D.O.; Physician,Non-Staff Brandi [address] [address] Patient Name: LAUREN SIFUENTES MRN: [id number] date: 1995 Sex: F Assigned Patient Location: [facility] Current Patient Location: Accession/Order Number: [id number] Exam Date: 04/09/2025 08:07 Report Date: 04/09/2025 [...] 15.2 cm. This is normal. Total score: 05/15 US/US OB BPP w non-stress IMPRESSION: NORMAL BIOPHYSICAL PROFILE. Impression dictated by: Atiya Valdes M.D. 04/09/2025 8:09 AM Dictation Location: [place] [address] Electronically authenticated by: [id number] Y Date: 04/09/2025 08:09 Dictated By: Atiya Valdes M.D. Signed By: 04/09/25811 DD/ 8 TD/TT: Examining Officer: Procedure Note Radiology, Radiologist, - 04/09/2025 [place] [address] Ultrasound Report Signed Patient: LAUREN SIFUENTES BMR#: [id number] : 1995Acct:[id number] Age/Sex: Date: Loc: [facility] [address]: Mehdi Velasquez D.O. Ordering Physician: Mehdi Velasquez D.O. Date of Service: 04/08/25 Procedure(s): US OB BPP w non-stress Accession Number(s): [id number] cc: Mehdi Velasquez D.O.; Physician,Non-Staff Brandi [place] [address] Patient Name: LAUREN SIFUENTES MRN: [id number] date: 1995 Sex: F Assigned Patient Location: [facility] Current Patient Location: Accession/Order Number: [id number] Exam Date: 04/09/2025 08:07 Report Date: 04/09/2025 [...] Valdes M.D. 04/09/2025 8:09 AM Dictation Location: [place] [address] Electronically authenticated by: [id number] Y Date: 508:09 Dictated By: Atiya Valdes M.D. Signed By:04/09/25811 DD/ 8 TD/TT: Examining Officer: us Mehdi Velasquez DO [facility] IMAGING Final Result * US OB PLACENTA (04/08/2025 10:32 PM EDT) Anatomical Region Laterality Modality Other 04/08/2025 10:3 2 PM EDT Narrative 04/08/2025 10:35 [place] [address] Ultrasound Report Signed Patient: LAUREN SIFUENTES MR#: [id number] : 1995 Acct:[id number] Age/Sex: 29 / F ADM Date: Loc: [facility] Attending Dr: Mehdi Velasquez D.O. Ordering Physician: Mehdi Velasquez D.O. Date of Service: 04/08/25 Procedure(s): US OB placenta Accession Number(s): [id number] cc: Mehdi Velasquez D.O.; Physician,Non-Staff Brandi [place] [id number] Patient Name: LAUREN SIFUENTES MRN: [id number] date: 1995 Sex: F Assigned Patient Location: [facility] Current Patient Location: Accession/Order Number: [id number] Exam Date: 04/08/2025 22:29 Report Date: 04/08/2025 [...] Stephenson M.D. 04/08/2025 10:32 PM Dictation Location: [facility] Electronically authenticated by: [id number] Y Date: 04/08/2025 22:32 Dictated By: Beltran Stephenson D.O. Signed By: 04/08/252234 DD/ 31 TD/TT: Examining Officer: Procedure Note Radiology, Radiologist, - 04/09/2025 [place] [address] Ultrasound Report Signed Patient: LAUREN SIFUENTES BMR#: [id number] : 1995Acct:[id number] Age/Sex: Date: Loc: [facility] [address]: Mehdi Velasquez D.O. Ordering Physician: Mehdi Velasquez D.O. Date of Service: 04/08/25 Procedure(s): US OB placenta Accession Number(s): [id number] cc: Mehdi Velasquez D.O.; Physician,Non-Staff Brandi The [place] [id number] Patient Name: LAUREN SIFUENTES MRN: [id number] date: 1995 Sex: F Assigned Patient Location: [facility] Current Patient Location: Accession/Order Number: [id number] Exam Date: 04/08/2025 22:29 Report Date: 04/08/2025 [...] Stephenson M.D. 04/08/2025 10:32 PM Dictation Location: [facility] Electronically authenticated by: [id number] Y Date: 2:32 Dictated By: Beltran Stephenson D.O. Signed By:04/08/252234 DD/ 31 TD/TT: Examining Officer: Mehdi Velasquez DO [facility]AGING Final Result from Last 3 Months Insurance [employer] Care Teams Middleware Engineer Relationship Specialty Start Date End Date Jorge L Holguin MD [address] [place] [address] PCP - General Family Medicine 07/16/23
--- OUTSIDE RECORDS SUMMARY | 2025-05-26 06:25 | XMS_ITS | Encounter Summary ---
Author Organization [facility] Address [address] [place] [place] [address] Care Team Providers Care Dean Of Women Name Role Phone Jorge L Holguin MD Primary Care Provider +1- [phone] Encounter Details Date Type Department Care Team (Late st Contact Info) Description 08/17/2023 External Result Encounter [facility] Department Unsolicited Renae Swenson MD [address] [place] [address] Social History Tobacco Use Types Packs/Day Years [...] Atiya Valdes M.D.08/17/2023 5:47 PM Dictation Location: [place] [address] Tech: Lana Landin Transcribed By: ANSHU 08/17/231746 Dictated By: Atiya Valdes MD 08/17/231742 Signed By: <Electronically signed by MD Atiya Valdes in OV> 08/17/231746 Narrative 08/21/2023 8:17 AM EST [facility] Main [place] [id number] Ultrasound Report Signed Patient: Caleb Sifuentes MR#: [id number] : 1995 Acct:[id number] Age/Sex: 28 / F ADM Date: 08/17/23 Loc: 3S Room: [address] [place] [address] Type: REG CLI Attending Dr: Renae Swenson MD Ordering Provider: Renae Swenson MD-[facility] Date of Service: 08/17/23 US/US transvaginal: Post D C, RPOC. measure endo PER DR SWENSON Copies to: Renae Swenson MD-[facility] LIMITED TRANSVAGINAL ULTRASOUND COMPARISON: 07/20/2023 Transvaginal [...] transvaginal Procedure Note Radiology, Radiologist, - 08/21/2023 [facility] Main [place] [id number] Ultrasound Report Signed Patient: Caleb Sifuentes BMR#: [id number] : 1995Acct:[id number] Age/Sex: 28 / FADM Date: 08/17/23 Loc: 3S Room: [id number]: REG CLI Attending Dr: Renae Swenson MD Ordering Provider: Renae Swenson MD-[facility] Date of Service: 08/17/23 US/US transvaginal: [...] Atiya Valdes M.D.08/17/2023 5:47 PM Dictation Location: [place] [address] Tech: Lana Annley Transcribed By: [facility] 08/17/231746 Dictated By: Atiya Valdes MD 08/17/231742 Signed By: <Electronically signed by MD Atiya Valdes in OV> 08/17/231746 us Renae Swenson MD IMG US PROCEDURES Final Result documented in this encounter Visit Diagnoses Not on filedocumented in this encounter Care Teams Dean Of Women Relationship Specialty Start Date End Date Jorge L Holguin MD [address] [place] [address] PCP - General Family Medicine 07/16/23 documented as of this encounter
--- OUTSIDE RECORDS SUMMARY | 2025-05-26 06:25 | XMS_ITS | Encounter Summary ---
Author Organization [employer] Address [id number] [address] [place] [address] Care Team Providers Care Tub Wash Operator Name Role Phone Jorge L Holguin MD Primary Care Provider [phone]- [phone] Reason for Visit * Reason Onset Date Comments Med Refill 06/19/2024 Encounter Details Date Type Department Care Team (Late st Contact Info) Description 06/19/2024 Telephone [facility] Sign In [address] [place] [address] oJrge L Holguin MD [address] [place] [address] Med Refill Social History Tobacco Use Types Packs/Day Years [...] encounter Miscellaneous Notes * Telephone Encounter - Jorge L Holguin MD - 06/19/2024 11:35 AM EDT refill documented in this encounter Plan of Treatment Not on file documented as of this encounter Visit Diagnoses Diagnosis Attention deficit hyperactivity disorder (ADHD), unspecified ADHD type documented in this encounter Additional Health Concerns Assessment Noted Time PHQ-9 Depression Total Score: 6 03/26/20 23 2:22 PM EDT documented as of this encounter Care Teams Tub Wash Operator Relationship Specialty Start Date End Date Jorge L Holguin MD [address] [place] [place] [address] PCP - General Family Medicine 06/15/23 documented as of this encounter
--- OUTSIDE RECORDS SUMMARY | 2025-05-26 06:25 | XMS_ITS | Encounter Summary ---
Author Organization [facility] [facility] tem Address [id number] [address] [place] [address] Care Team Providers Care Operator Coating Furnace Name Role Phone Jorge L Holguin MD Primary Care Provider +1- [phone] Encounter Details Date Type Department Care Team ([facility] Contact Info) Description 07/14/2019 Telephone [facility] Medicine [address] [place] [id number] Ana Lopez, DO [address] [address] Social History Tobacco Use Types Packs/Day Years Used Date Smoking Tobacco: Never Smokeless Tobacco: Never Alcohol Use Standard Drinks/Week Comments No 0 (1 standard drink = 0.6 oz pur e alcohol) Childcare Answer Date Recorded Childcare Unknown 03/14/2019 Employment Answer Date Recorded Employment Unknown 03/14/2019 Comments No Sex and Gender Information Value [...] on filedocumented in this encounter Care Teams Operator Coating Furnace Relationship Specialty Start Date End Date Jorge L Holguin MD [address] [place] [address] PCP - General Family Medicine 06/15/23 documented as of this encounter
[2025-05-26 07:11] LABS: Glucose Urine UA NEGATIVE (NEGATIVE)
--- NOTE | 2025-05-26 08:06 | US_ITS ---
[place] [address] Patient Name: LAUREN MARTINEZ MRN: [id number] date: 1995 Sex: F Assigned Patient Location: [facility] Current Patient Location: Accession/Order Number: [id number] Exam Date: 05/26/2025 08:49 Report Date: 05/26/2025 08:52 At the request of: HANS MORA DO Procedure: US OB BPP w non-stress US OB BPP w non-stress 05/26/2025 8:30 AM SIGNS AND SYMPTOMS: ^09/06/2024 ^leaking ^Y PROTOCOL: Transabdominal sonographic images of the gravid uterus COMPARISON: 04/09/2025 FINDINGS: heart rate: 121 bpm Amniotic fluid index: 12.39 cm. Deepest vertical pocket measures 4.2 cm. Estimated gestational age: 38 weeks and 2 days Biophysical profile: breathing movements: 2/2 Gross body movements: 2/2 tone: 2/2 Amniotic fluid volume: 2/2 US/US OB BPP w non-stress IMPRESSION: Biophysical profile: 05/15 Impression dictated by: Juan Jose Hampton M.D. 05/26/2025 8:52 AM Dictation Location: [facility] Electronically authenticated by: [id number] Date: 05/26/2025 08:52
== END 2025-05-26 08:40 | disposition home or self-care (01) ==
PROVIDERS: Admitting Provider Obstetrics & Gynecology; Visit Provider Obstetrics & Gynecology
DX: Z03.71 Encounter for suspected problem with amniotic cavity and membrane ruled out (principal)
CPT/HCPCS: 59025; 76818; 81003; 84112; G0378; G0379